=== PATIENT | male | born 1960 ===

== ENCOUNTER 2016-06-13 07:09 | Inpatient (IN) | payer BC ==
--- NOTE | 2016-06-13 07:56 | C.PDOC ---
History Of Present Illness Patient is a 56 y/o male, with no significant PMHx, presents to the ED for evaluation of shortness of breath associated with cough for the past 2-3 days. Patient admits to fever, and chills. Otherwise, denies any chest pain, lower extremity pain/swelling, abdominal pain, nausea, vomiting, urinary symptoms, or any other associated symptoms at this time. Patient presented febrile, tachicardic, tachipnic, visibly short of breath, mild hypoxemia. Time Seen by Provider: 06/13/16 07:27 Chief Complaint (Nursing): Shortness Of Breath History Per: Patient History/Exam Limitations: no limitations Onset/Duration Of Symptoms: Days (3) Current Symptoms Are (Timing): Still Present Exacerbating Factor(s): Coughing Current Respiratory Medications: None Severity: None Pain Scale Rating Of: 0 Associated Symptoms: Fever, Chills. denies: Sweating, Chest Pain, Bloody Cough , Heart Racing, Leg/Calf Pain, Ankle/Leg Swelling, Dizziness, Light-headedness, Anxiety, Tingling In Hands Or Face, Musle Spasms In Hands Or Feet Recent travel outside of the [place]: No Additional History Per: Patient Past Medical History Reviewed: Historical Data, Nursing Documentation, Vital Signs Vital Signs: Last Vital Signs Temp 99.6 F 06/13/16 09:27 Pulse 108 H 06/13/16 09:27 Resp 20 06/13/16 10:00 BP 98/57 L 06/13/16 09:27 Pulse Ox 98 06/13/16 09:55 - Medical History PMH: No Chronic Diseases Surgical History: No Surg Hx Family History: States: No Known Family Hx - Social History Hx Alcohol Use: No Hx Substance Use: No - Immunization History Hx Influenza Vaccination: No Review Of Systems Except As Marked, All Systems Reviewed And Found Negative. Constitutional: Positive for: Fever, Chills. Negative for: Sweats Cardiovascular: Negative for: Chest Pain, Palpitations, Edema, Light Headedness Respiratory: Positive for: Cough, Shortness of Breath. Negative for: Hemoptysis , Sputum, Wheezing Gastrointestinal: Negative for: Nausea, Vomiting, Abdominal Pain Genitourinary: Negative for: Dysuria, Frequency, Hematuria Musculoskeletal: Negative for: Neck Pain, Back Pain Neurological: Negative for: Weakness, Numbness, Headache, Dizziness Physical Exam - Physical Exam Appears: Non-toxic, Other (visibly short of breath) Skin: Normal Color, Warm (febrile), Dry Head: Atraumatic, Normacephalic Eye(s): bilateral: Normal Inspection, EOMI Neck: Normal ROM, Supple Chest: Symmetrical, No Tenderness Cardiovascular: No Murmur, Other (tachycardic) Respiratory: Normal Breath Sounds, No Accessory Muscle Use, No Rales, No Rhonchi , No Wheezing, Other (tachypnic) Gastrointestinal/Abdominal: Soft, No Tenderness Extremity: Normal ROM, No Tenderness, No Pedal Edema, Capillary Refill (< 2 sec. ) Neurological/Psych: Oriented x3, Normal Speech, Normal Cognition ED Course And Treatment - Laboratory Results Result Diagrams: 06/13/16 08:08 06/13/16 08:08 O2 Sat by Pulse Oximetry: 98 (on RA) Pulse Ox Interpretation: Normal - CT Scan/US Angio chest Other Rad Studies (CT/US): Read By Radiologist, Radiology Report Reviewed CT/US Interpretation: Findings: Visualized portions of the inferior thyroid gland appear unremarkable. The mediastinal and hilar vascular structures appear within normal limits. The heart appears within normal limits of size. Sub cm prevascular lymph node. No large central or segmental pulmonary embolus evident. Extensive patchy bilateral ground-glass and airspace opacities involving all lobes. No pleural effusion. No pneumothorax. Innumerable nodular densities bilaterally. For example 6 mm right lower lobe nodule. 4 mm right upper lobe pulmonary nodule. 10 mm left upper lobe nodular density. Limited visualization of the noncontrast upper abdomen reveals peripherally calcified gallbladder. No acute osseous abnormality is detected. Impression: No large central or segmental pulmonary embolus evident. Extensive patchy bilateral ground-glass and airspace opacities involving all lobes. Correlate clinically for infectious etiologies. Innumerable nodular densities bilaterally. For example 6 mm right lower lobe nodule. 4 mm right upper lobe pulmonary nodule. 10 mm left upper lobe nodular density. Recommend close interval follow-up upon completion of treatment for acute symptoms in order to assess for pulmonary nodules or malignancy. Peripherally calcified gallbladder. Progress Note: Plan: Labs, EKG, CXR. Progress note: Patient was treated with Motrin PO, and Tylenol PO. Medical Decision Making Medical Decision Making: Patient with ground glass appearance on chest CT. most likely infectious process , r/o PCP. Spoke with Dr. Fletcher. Will admit to his service. Will add Bactrim to antibiotics, HIV test sent. Patient with no significant risk factors. Disposition Discussed With : Cezar Fletcher Doctor Will See Patient In The: Hospital Counseled Patient/Family Regarding: Studies Performed, Diagnosis - Disposition Disposition: HOSPITALIZED Disposition Time: 09:53 Condition: GUARDED - Clinical Impression Clinical Impression: Dyspnea, Respiratory distress, Interstitial pneumonia - Scribe Statement The provider has reviewed the documentation as recorded by the Mary Beck Provider Attestation: All medical record entries made by the Mary were at my direction and personally dictated by me. I have reviewed the chart and agree that the record accurately reflects my personal performance of the history, physical exam, medical decision making, and the department course for this patient. I have also personally directed, reviewed, and agree with the discharge instructions and disposition. Decision To Admit - Pt Status Changed To: Hospital Disposition Of: Inpatient - Admit Certification Admit to Inpatient:: After my assessment, the patient will require hospitalization for at least two midnights. This is because of the severity of symptoms shown, intensity of services needed, and/or the medical risk in this patient being treated as an outpatient. - InPatient: Physician Admission Certification: I certify that this patient requires 2 or more midnights of care for the following reason:: hypoxic, pneumonia - . Bed Request Type: Telemetry Patient Diagnosis: Dyspnea, Respiratory distress, Interstitial pneumonia
[2016-06-13] MEDS ORDERED: cefTRIAXone IV 1 gm in Dextros 50 ML IVPB ONE ×2 (08:03→08:09)
[2016-06-13] MEDS ORDERED: Azithromycin 500 MG in Sodium Chloride 0.9% 250 ML IVPB STA (08:03)
[2016-06-13] MEDS ORDERED: Azithromycin 500mg/250ML NS 500 MG/250 ML BAG IVPB ONE (08:09)
[2016-06-13 08:16] LABS: BASO % 0.5 % (0.0-2.0); EOS # 0.2 K/uL (0.0-0.7); LYMPH # 1.6 K/uL (1.0-4.3); LYMPH % 18.2 % (20.0-40.0); MEAN CELL VOLUME 85.6 fL (80.0-94.0); MEAN CORPUSCULAR HEMOGLOBIN 28.4 pg (27.0-31.0); MEAN CORPUSCULAR HGB CONC 33.2 g/dL (33.0-37.0); MEAN PLATELET VOLUME 7.3 fL (7.2-11.7); MONO # 0.4 K/uL (0.0-0.8); MONO % 4.9 % (0.0-10.0); NRBC % 0.1 % (0.0-2.0); WHITE BLOOD COUNT 8.8 K/uL (4.8-10.8)
[2016-06-13 08:24] LABS: CHLORIDE 97 mmol/L (98-107); POTASSIUM 4.1 mmol/L (3.6-5.2); SODIUM 131 mmol/L (132-148)
[2016-06-13 08:26] LABS: BILIRUBIN,TOTAL 0.6 mg/dL (0.2-1.3); CARBON DIOXIDE 23 mmol/L (22-30); GFR AFRICAN-AMERICAN > 60
[2016-06-13 08:30] LABS: ALB/GLOB RATIO 0.8 (1.0-2.1); ALKALINE PHOSPHATASE 150 U/L (38-126); ALT/SGPT 32 U/L (21-72); AST/SGOT 80 U/L (17-59); BLOOD UREA NITROGEN 12 mg/dL (9-20); CALCIUM 8.7 mg/dl (8.6-10.4); GLUCOSE,RANDOM 102 mg/dL (75-110); TOTAL PROTEIN 8.2 g/dL (6.3-8.3)
[2016-06-13] MEDS ORDERED: Iodixanol 320 MG/ML 100 ML BOTTLE IV ONE (08:36)
[2016-06-13 09:03] LABS: VENOUS BLOOD GAS BASE EXCESS -1.1 mmol/L (0.0-2.0); VENOUS BLOOD GAS PCO2 38 mmHg (40-60)
--- NOTE | 2016-06-13 09:05 | RAD ---
HISTORY: SOB COMPARISON: None available TECHNIQUE: Chest PA and lateral FINDINGS: LUNGS: Interstitial prominence may reflect infection or edema. Minimal increased patchy opacity at the medial right lung base. Trace fluid or thickening of the right fissure. Please note that chest x-ray has limited sensitivity for the detection of pulmonary masses. PLEURA: No significant pleural effusion identified. No definite pneumothorax . CARDIOVASCULAR: Size appears within normal limits. OSSEOUS STRUCTURES: No acute osseous abnormality identified. VISUALIZED UPPER ABDOMEN: Unremarkable. OTHER FINDINGS: None. IMPRESSION: Moderate interstitial prominence may reflect infection or edema.
--- NOTE | 2016-06-13 09:44 | CT ---
CT chest with IV contrast Indication: severe sob Technique: Contiguous axial images were obtained through the chest with intravenous contrast enhancement. Sagittal and coronal reconstructions were generated and reviewed. This CT exam was performed using 1 or more of the falling dose reduction techniques: Automated exposure control, adjustment of the MAA and/or kV according to patient size, and/or use of iterative reconstruction technique. IV Contrast: 80 mL Visipaque 320 Radiation dose (DLP): 469.24 MGy-cm. Comparison: Chest x-ray performed the same day. Findings: Visualized portions of the inferior thyroid gland appear unremarkable. The mediastinal and hilar vascular structures appear within normal limits. The heart appears within normal limits of size. Sub cm prevascular lymph node. No large central or segmental pulmonary embolus evident. Extensive patchy bilateral ground-glass and airspace opacities involving all lobes. No pleural effusion. No pneumothorax. Innumerable nodular densities bilaterally. For example 6 mm right lower lobe nodule. 4 mm right upper lobe pulmonary nodule. 10 mm left upper lobe nodular density. Limited visualization of the noncontrast upper abdomen reveals peripherally calcified gallbladder. No acute osseous abnormality is detected. Impression: No large central or segmental pulmonary embolus evident. Extensive patchy bilateral ground-glass and airspace opacities involving all lobes. Correlate clinically for infectious etiologies. Innumerable nodular densities bilaterally. For example 6 mm right lower lobe nodule. 4 mm right upper lobe pulmonary nodule. 10 mm left upper lobe nodular density. Recommend close interval follow-up upon completion of treatment for acute symptoms in order to assess for pulmonary nodules or malignancy. Peripherally calcified gallbladder.
[2016-06-13] MEDS ORDERED: Tmp-Smz 800 mg-160 mg DS Tab PO SCH (11:15)
[2016-06-13] MEDS ORDERED: Sulfamethoxazole/Trimethoprim 160 MG in Dextrose 5% In Water 250 ML IVPB STA (11:34)
[2016-06-13] MEDS ORDERED: Albuterol-Ipratrop 3 mg / 0.5 (3 ml) UD ONE (14:18)
[2016-06-13] MEDS: Albuterol-Ipratrop 3 mg / 0.5 (3 ml) UD INH SCH ×2 (14:36→22:07)
[2016-06-13] MEDS: Sodium Chloride 0.9% 1,000 ML IV SCH ×2 (16:11→21:38)
[2016-06-13] MEDS: Sulfamethoxazole/Trimethoprim 160 MG in Dextrose 5% In Water 250 ML IVPB SCH (23:05)
--- NOTE | 2016-06-13 23:44 | CP.PCM.HP ---
History of Present Illness - History of Present Illness History of Present Illness: Cheif complains: shortness of breath, dry cough, fever, malaise HPI: Patient who is a 56 y/o male, with no significant PMHx, is a poor historian presents to the ED for evaluation of shortness of breath associated with cough for the past 2-3 days. he says he has trouble breathing deep and have pain on deep inspiration, Patient admits to fever, and chills. Otherwise, denies any chest pain, lower extremity pain/swelling, abdominal pain, nausea, vomiting, urinary symptoms, or any other associated symptoms at this time. denies exposure to TB, sebastian any risk factors of HIV Patient presented febrile, tachicardic, tachipnic, visibly short of breath, mild hypoxemia. Present on Admission - Present on Admission Any Indicators Present on Admission: No Review of Systems - Review of Systems Systems not reviewed;Unavailable: Acuity of Condition - Constitutional Constitutional: Fatigue, Fever, Lethargy, Malaise. absent: As Per HPI, Anorexia , Chills, Daytime Sleepiness, Excessive Sweating, Frequent Falls, Headache, Increased Appetite, Night Sweats, Snoring, Sleep Apnea, Weight Gain, Weight Loss , Weakness, Other - EENT Eyes: absent: As Per HPI, Blind Spots, Blurred Vision, Change in Vision, Decreased Night Vision, Diplopia, Discharge, Dry Eye, Exophthalmos, Floaters, Irritation, Itchy Eyes, Loss of Peripheral Vision, Pain, Photophobia, Requires Corrective Lenses, Sees Flashes, Spots in Vision, Tunnel Vision, Other Visual Disturbances, Loss of Vision, Other Past Patient History - Infectious Disease Hx of Infectious Diseases: None - Past Social History Smoking Status: Never Smoked - PSYCHIATRIC Hx Substance Use: No - SURGICAL HISTORY Hx Surgeries: No - ANESTHESIA Hx Anesthesia: No Meds Home Medications: Home Medication List Medication Instructions Recorded Confirmed Type Azithromycin [Zithromax] 600 mg PO QD7 #8 tab 06/21/16 Rx Nystatin [Nystatin Oral Susp] 5 ml PO QID #100 06/21/16 Rx Allergies/Adverse Reactions: Allergies Allergy/AdvReac Type Severity Reaction Status Date / Time No Known Allergies Allergy Verified 07/07/16 10:15 Physical Exam - Constitutional Appears: No Acute Distress Additional comments: middle aged male who looks under weight - Head Exam Head Exam: ATRAUMATIC, NORMAL INSPECTION, NORMOCEPHALIC - Eye Exam Eye Exam: EOMI, Normal appearance, PERRL Pupil Exam: NORMAL ACCOMODATION, PERRL - Respiratory Exam Respiratory Exam: Decreased Breath Sounds, Rales Additional comments: basal rales - Cardiovascular Exam Cardiovascular Exam: REGULAR RHYTHM - GI/Abdominal Exam GI & Abdominal Exam: Normal Bowel Sounds, Soft. absent: Tenderness Results - Vital Signs Recent Vital Signs: Last Vital Signs Temp 98.5 F 06/13/16 22:26 Pulse 105 H 06/13/16 22:26 Resp 22 06/13/16 22:26 BP 132/78 06/13/16 22:26 Pulse Ox 93 L 06/13/16 22:26 - Labs Result Diagrams: 06/18/16 13:42 06/18/16 13:42 Labs: Laboratory Results - last 24 hr 06/13/16 10:34 Lactate Dehydrogenase 1563 H Assessment & Plan (1) Dyspnea Status: Acute (2) Interstitial pneumonia Assessment and Plan: further evaluation for etiology of pnemonia broad spectrum antibiotoics now we will also get pulmonary consult Status: Acute (3) Respiratory distress Status: Acute
[2016-06-14] MEDS: Albuterol-Ipratrop 3 mg / 0.5 (3 ml) UD INH SCH ×4 (01:39→19:47)
[2016-06-14] MEDS ORDERED: Pneumococcal 23-Valent Vaccine IM ONE (03:15)
[2016-06-14] MEDS ORDERED: cefTRIAXone IV 1 gm in Dextros 50 ML IVPB SCH (08:30)
[2016-06-14] MEDS: Enoxaparin 40 mg Syringe SC SCH (09:51)
[2016-06-14] MEDS ORDERED: Azithromycin 500 MG in Sodium Chloride 0.9% 250 ML IVPB SCH (10:00)
[2016-06-14] MEDS: Sulfamethoxazole/Trimethoprim 160 MG in Dextrose 5% In Water 250 ML IVPB SCH (12:30)
[2016-06-14] MEDS: Sodium Chloride 0.9% 1,000 ML IV SCH ×3 (12:33→21:41)
[2016-06-14] MEDS: MethylPREDNISolone 40 mg Vial IVP SCH ×2 (13:59→21:43)
--- NOTE | 2016-06-14 17:18 | CP.PCM.CON ---
History of Present Illness - History of Present Illness History of Present Illness: INFECTIOUS DISEASE CONSULTATION; PATIENT SEEN AND CHART REVIEWED RADIOLOGY REVIEWED. CASE DISCUSSED WITH PULMONARY CONSULT DICTATED; DICTATION #[id number]. SEE REPORTS. Past Patient History - Infectious Disease Hx of Infectious Diseases: None - Past Medical History & Family History Past Medical History?: Yes - Past Social History Smoking Status: Never Smoked - MUSCULOSKELETAL/RHEUMATOLOGICAL Hx Falls: No Other/Comment: restless leg syndrome - PSYCHIATRIC Hx Substance Use: No - SURGICAL HISTORY Hx Surgeries: No - ANESTHESIA Hx Anesthesia: No Meds Allergies/Adverse Reactions: Allergies Allergy/AdvReac Type Severity Reaction Status Date / Time No Known Allergies Allergy Verified 06/13/16 07:39 - Medications Medications: Current Medications Albuterol/Ipratropium (Duoneb 3 Mg/0.5 Mg (3 Ml) Ud) 3 ml INH RQ6 [facility] Last Admin: 06/14/16 13:24 Dose: 3 ml Enoxaparin Sodium (Lovenox) 40 mg SC DAILY [facility] Last Admin: 06/14/16 09:51 Dose: 40 mg Ceftriaxone Sodium (Rocephin Iv 1 Gm Duplex) 50 mls @ 100 mls/hr IVPB Q24H [facility] Last Admin: 06/14/16 09:52 Dose: 100 mls/hr Azithromycin 500 mg/ Sodium (Chloride) 250 mls @ 166.667 mls/hr IVPB DAILY [facility] Last Admin: 06/14/16 09:55 Dose: 166.667 mls/hr Sodium Chloride (Sodium Chloride 0.9%) 1,000 mls @ 100 mls/hr IV .Q10H [facility] Last Admin: 06/14/16 12:37 Dose: 100 mls/hr Trimethoprim/Sulfamethoxazole (160 mg/ Dextrose) 250 mls @ 166.667 mls/hr IVPB Q12H [facility] Last Admin: 06/14/16 12:30 Dose: 166.667 mls/hr Methylprednisolone (Solu-Medrol) 40 mg IVP Q8 [facility] Last Admin: 06/14/16 13:59 Dose: 40 mg Pneumococcal Polyvalent Vaccine (Pneumovax 23 Vaccine) 0.5 ml IM .ONCE ONE Stop: 06/17/16 10:01 Results - Vital Signs Recent Vital Signs: Last Vital Signs Temp 98.3 F 06/14/16 15:43 Pulse 102 H 06/14/16 15:43 Resp 22 06/14/16 16:19 BP 119/65 06/14/16 15:43 Pulse Ox 95 06/14/16 15:43 - Labs Result Diagrams: 06/13/16 08:08 06/13/16 08:08 Labs: Laboratory Results - last 24 hr 06/13/16 10:34 HIV 1&2 Antibody Screen Reactive H Assessment & Plan (1) Dyspnea Status: Acute (2) Interstitial pneumonia Status: Acute (3) Respiratory distress Status: Acute (4) HIV antibody positive Status: Acute (5) Oral candidiasis Status: Acute - Assessment and Plan (Free Text) Assessment: PLAN; SEE ORDER SHEET. INCREASE iv bACTRIM 240 MG iv PIGGYBACK EVERY 12 HOURLY 06/13/16. START iv pRIMAXIN 500MILLIGRAMS iv PIGGYBACK EVERY 8 HOURLY 06/14/16.. dc iv CEFTRIAXONE IN VIEW OF HEPATIC METABOLISM AND ELEVATED lftS. dc iv zITHROMAX. START iv BY MOUTH NYSTATIN 5 Ml SWISH AND SWALLOW 4 TIMES A DAY.06/14/16 WILL GET CONFIRMATORY TEST FOR hiv 1 ANTIBODY POSITIVE. LYMPHOCYTE SUBSET STUDIES. WILL INITIATE HAART THERAPY IF FOURTH-GENERATION HIV TEST COMES BACK POSITIVE WE'LL FOLLOW ALONG WITH YOU AND MAKE ANY RECOMMENDATIONS NEEDED.
--- NOTE | 2016-06-14 17:53 | CP.PCM.CON ---
History of Present Illness - History of Present Illness History of Present Illness: reason for consultation: shortness of breath and cough with severe hypoxemia 56 y/o male, with no significant PMHx, is a poor historian presents to the ED for evaluation of shortness of breath associated with cough for the past 2-3 days. he says he has trouble breathing deep and have pain on deep inspiration, Patient admits to fever, and chills. Otherwise, denies any chest pain, lower extremity pain/swelling, abdominal pain, nausea, vomiting, urinary symptoms, or any other associated symptoms at this time. denies exposure to TB, sebastian any risk factors of HIV Review of Systems - Review of Systems All systems: reviewed and no additional remarkable complaints except (Shortness of breath and cough) Past Patient History - Infectious Disease Hx of Infectious Diseases: None - Past Medical History & Family History Past Medical History?: Yes - Past Social History Smoking Status: Never Smoked - MUSCULOSKELETAL/RHEUMATOLOGICAL Hx Falls: No Other/Comment: restless leg syndrome - PSYCHIATRIC Hx Substance Use: No - SURGICAL HISTORY Hx Surgeries: No - ANESTHESIA Hx Anesthesia: No Meds Home Medications: Home Medication List Medication Instructions Recorded Confirmed Type Azithromycin [Zithromax] 600 mg PO QD7 #8 tab 06/21/16 Rx Nystatin [Nystatin Oral Susp] 5 ml PO QID #100 06/21/16 Rx Allergies/Adverse Reactions: Allergies Allergy/AdvReac Type Severity Reaction Status Date / Time No Known Allergies Allergy Verified 07/07/16 10:15 - Medications Medications: Current Medications Albuterol/Ipratropium (Duoneb 3 Mg/0.5 Mg (3 Ml) Ud) 3 ml INH RQ6 [facility] Last Admin: 06/14/16 13:24 Dose: 3 ml Enoxaparin Sodium (Lovenox) 40 mg SC DAILY [facility] Last Admin: 06/14/16 09:51 Dose: 40 mg Ceftriaxone Sodium (Rocephin Iv 1 Gm Duplex) 50 mls @ 100 mls/hr IVPB Q24H [facility] Last Admin: 06/14/16 09:52 Dose: 100 mls/hr Azithromycin 500 mg/ Sodium (Chloride) 250 mls @ 166.667 mls/hr IVPB DAILY [facility] Last Admin: 06/14/16 09:55 Dose: 166.667 mls/hr Sodium Chloride (Sodium Chloride 0.9%) 1,000 mls @ 100 mls/hr IV .Q10H [facility] Last Admin: 06/14/16 12:37 Dose: 100 mls/hr Trimethoprim/Sulfamethoxazole (160 mg/ Dextrose) 250 mls @ 166.667 mls/hr IVPB Q12H [facility] Last Admin: 06/14/16 12:30 Dose: 166.667 mls/hr Trimethoprim/Sulfamethoxazole (240 mg/ Dextrose) 250 mls @ 167 mls/hr IVPB Q12H [facility] Methylprednisolone (Solu-Medrol) 40 mg IVP Q8 [facility] Last Admin: 06/14/16 13:59 Dose: 40 mg Nystatin (Nystatin Oral Susp) 5 ml PO QID [facility] Pneumococcal Polyvalent Vaccine (Pneumovax 23 Vaccine) 0.5 ml IM .ONCE ONE Stop: 06/17/16 10:01 Physical Exam - Head Exam Head Exam: ATRAUMATIC, NORMOCEPHALIC - Eye Exam Eye Exam: Normal appearance - ENT Exam ENT Exam: Mucous Membranes Moist - Neck Exam Neck exam: Positive for: Normal Inspection - Respiratory Exam Respiratory Exam: Rales, Respiratory Distress - Cardiovascular Exam Cardiovascular Exam: Tachycardia, REGULAR RHYTHM - GI/Abdominal Exam GI & Abdominal Exam: Normal Bowel Sounds, Soft Results - Vital Signs Recent Vital Signs: Last Vital Signs Temp 98.3 F 06/14/16 15:43 Pulse 102 H 06/14/16 15:43 Resp 22 06/14/16 16:19 BP 119/65 06/14/16 15:43 Pulse Ox 95 06/14/16 15:43 - Labs Result Diagrams: 06/18/16 13:42 06/18/16 13:42 Labs: Laboratory Results - last 24 hr 06/13/16 10:34 HIV 1&2 Antibody Screen Reactive H Assessment & Plan (1) Bilateral pneumonia Status: Acute Comment: started on IV antibiotics. HIV testing. Echocardiogram. Follow up culture and sensitivity. Follow-up ABG (2) Respiratory distress Status: Acute
[2016-06-14] MEDS: Nystatin 100,000 Units/ml Oral Susp 5 ml UD PO SCH ×2 (19:28→21:43)
--- NOTE | 2016-06-14 19:50 | CON ---
DATE: 06/14/2016 INFECTIOUS DISEASE CONSULTATION REQUESTING PHYSICIAN: Dr. Cezar Fletcher. REASON FOR CONSULTATION: Hypoxia, pneumonia and respiratory distress. HISTORY OF PRESENT ILLNESS: The patient is a 56-year-old elderly male with no significant past medic al history who is admitted from the Emergency Room because of shortness of breath associated with a d ry cough for the past 2-3 days. The patient states he has been having trouble breathing deep and get s pain on deep inspiration. The patient also admits to fever and chills off and on for the past 2 da ys. The patient presently denies any palpitations, nausea, vomiting or urinary symptoms. He denies any lower extremity pain or chest pain otherwise, except on deep inspiration. The patient denies any headache. Chest x-ray on admission was consistent with moderate interstitial prominence, which may reflect infection or edema. A CT angio chest was ordered to rule out pulmonary embolism, which came back positive for extensive patchy bilateral ground-glass airspace opacities involving all lobes. In numerable nodular densities were also seen bilaterally of 4 mm in the right upper lobe and about 10 m m in the left upper lobe. The patient was also found to be hypoxemic with a pulse ox of 93% on room air and also LDH was found to be elevated to 1563. The patient was empirically started on IV Bactrim as well as IV ceftriaxone and Zithromax by the private MD and ER in-physician. Infectious: HIV petar t was also sent, which reported came back positive on initial testing. The patient denies any risky behavior or any promiscuous activity. He denies any previous history of blood transfusions except fo r tattoo quiroz on his chest and back reported placed about 12 years ago. The patient denies any expo sure to TB. He states he is and lives with his family. PAST MEDICAL HISTORY: Unremarkable except for the present problem as per HPI. He denies any previou s history of pneumonia, TB or any sexually transmitted disease. ALLERGIES: No known allergies. SOCIAL HISTORY: The patient denies any smoking, denies any history of alcohol abuse or any history o f substance abuse. FAMILY HISTORY: Unremarkable. PAST SURGICAL HISTORY: No known surgical history. IMMUNIZATION HISTORY: The patient is not up to date on influenza vaccination or any pneumococcal vac cination. He denies seeing any doctor for some time. ALLERGIES: No known allergies. REVIEW OF SYSTEMS: RESPIRATORY: Complains of shortness of breath even on rest. CARDIOVASCULAR SYSTEM: Denies any chest pains, palpitations, edema or lightheadedness. CONSTITUTIONAL: Complains of fever and chills. Negative for night sweats. GASTROINTESTINAL: Denies any nausea, vomiting or abdominal pain. GENITOURINARY: Unremarkable. No dysuria, no frequency, no hematuria. MUSCULOSKELETAL: Denies any neck pains or back pains. CENTRAL NERVOUS SYSTEM: Denies any weakness, numbness, headache, dizziness. The rest of the review of systems is unremarkable. PHYSICAL EXAMINATION: GENERAL: The patient is 5 feet 5 inches tall, gentleman, about 150 pounds. VITAL SIGNS: T-max of 99.6, blood pressure 98/57 to 131/78, respirations 25-22 per minute, pulse ox is 93%. HEENT: Pupils equal, reactive to light and accommodation. Extraocular movements full. Fundus negat kole. Sclerae are nonicteric. Conjunctivae are normal. JVP not elevated. NECK: Appears to be supple. No lymphadenopathy appreciated. LUNGS: Bilateral rhonchi, no expiratory wheeze and tachypneic. CARDIOVASCULAR SYSTEM: Sinus tachycardia. No murmur or gallop. ABDOMEN: Soft, nontender, no masses. EXTREMITIES: Normal range of motion. No tenderness. No pedal edema. Capillary refill less than 2 seconds. CENTRAL NERVOUS SYSTEM: Awake, alert, oriented x 3. Moves all extremities. Reflexes are equal and symmetrical. Cranial nerves II-XII seem to be intact. Babinski are downgoing. Normal speech. LABORATORY DATA: WBC 8.8, H and H of 14.0 and 42, platelets of 326. Creatinine of 0.8, BUN 12, pota ssium is 4.1. Liver function tests: Total bilirubin of 0.6, AST of 80, ALT of 32, alkaline phosphat ase 150. LDH 1563. Serum lactate on admission was 2.1. D-dimer was less than 200. HIV 1 and [address] reporting reactive. CT chest angio on 06/13/16 noted extensive patchy bilateral ground-glass ai rspace opacities involving all lobes with innumerable nodular densities bilaterally about 4 mm right upper lobe and 10 mm left upper lobe. IMPRESSION: 1. Bilateral pneumonia with hypoxemia and increased interstitial markings and nodular densities, rul e out PCP versus atypical pneumonia. 2. Oral candidiasis. 3. Transaminitis, rule out liver disease versus congestion of liver. 4. Human immunodeficiency virus positive initial testing, rule out false positive, will confirm. PLAN: 1. [place] cultures. We will increase IV Bactrim to 240 mg q. 12 hourly. Discontinue IV ceftriaxone in view of the liver metabolism and elevated transaminitis. Discontinue IV Zithromax for now. Start I V Primaxin 500 mg q. 8 hourly. We will also get sed rate, CRP, cryptococcal antigen. 2. VDRL. 3. Lymphocyte subset studies. 4. Throat culture sensitivity for fungus and Strep. 5. Toxoplasmosis IgM and IgG serology. 6. We will also send for HIV 1 RNA PCR quantitative levels and genotyping and lymphocyte subsets teto dies. 7. Also, will check HLA-B 5701 for abacavir hypersensitivity. 8. Will initiate HAART therapy if tests are positive. Thank you very much for allowing me to participate in the care of your patient. Will follow along wi th you and make any recommendations as needed. Brandyn Jiang MD cc: [id number] TT: 06/14/2016 19:49:21 Confirmation # [id number] Dictation # [id number] [email or web address]
--- NOTE | 2016-06-14 22:26 | CP.PCM.PN ---
Subjective - Date & Time of Evaluation Date of Evaluation: 06/14/16 Time of Evaluation: 09:38 - Subjective Subjective: Pt seen & evalauted is HIV positive, still hypooxic, short of breath, rule out PCP pneumonia,continue bactrim, Id follow up, pulmonary consult Objective - Vital Signs/Intake and Output Vital Signs (last 24 hours): Temp Pulse Resp BP Pulse Ox 98.3 F 102 H 22 119/65 95 06/14/16 15:43 06/14/16 15:43 06/14/16 19:48 06/14/16 15:43 06/14/16 15:43 - Medications Medications: Current Medications Albuterol/Ipratropium (Duoneb 3 Mg/0.5 Mg (3 Ml) Ud) 3 ml INH RQ6 [facility] Last Admin: 06/14/16 19:47 Dose: 3 ml Enoxaparin Sodium (Lovenox) 40 mg SC DAILY [facility] Last Admin: 06/14/16 09:51 Dose: 40 mg Sodium Chloride (Sodium Chloride 0.9%) 1,000 mls @ 100 mls/hr IV .Q10H [facility] Last Admin: 06/14/16 21:41 Dose: Not Given Trimethoprim/Sulfamethoxazole (240 mg/ Dextrose) 250 mls @ 167 mls/hr IVPB Q12H [facility] Imipenem/Cilastatin Sodium 500 (mg/ Sodium Chloride) 100 mls @ 100 mls/hr IVPB Q8H [facility] Last Admin: 06/14/16 19:29 Dose: 100 mls/hr Methylprednisolone (Solu-Medrol) 40 mg IVP Q8 [facility] Last Admin: 06/14/16 21:43 Dose: 40 mg Nystatin (Nystatin Oral Susp) 5 ml PO QID [facility] Last Admin: 06/14/16 21:43 Dose: 5 ml Pneumococcal Polyvalent Vaccine (Pneumovax 23 Vaccine) 0.5 ml IM .ONCE ONE Stop: 06/17/16 10:01 - Constitutional Appears: No Acute Distress, Chronically Ill - Head Exam Head Exam: ATRAUMATIC, NORMAL INSPECTION, NORMOCEPHALIC - Eye Exam Eye Exam: EOMI, Normal appearance, PERRL Pupil Exam: NORMAL ACCOMODATION, PERRL - Respiratory Exam Respiratory Exam: Decreased Breath Sounds, Rales, Rhonchi - Cardiovascular Exam Cardiovascular Exam: REGULAR RHYTHM, +S1, +S2. absent: Murmur Assessment and Plan (1) Dyspnea Status: Acute (2) Interstitial pneumonia Status: Acute (3) Respiratory distress Status: Acute (4) HIV antibody positive Status: Acute
[2016-06-15] MEDS: Sulfamethoxazole/Trimethoprim 240 MG in Dextrose 5% In Water 250 ML IVPB SCH ×2 (00:45→13:30)
[2016-06-15] MEDS: Albuterol-Ipratrop 3 mg / 0.5 (3 ml) UD INH SCH ×4 (01:09→19:59)
[2016-06-15] MEDS: MethylPREDNISolone 40 mg Vial IVP SCH ×3 (06:27→22:09)
[2016-06-15 10:16] LABS: CHLORIDE 104 mmol/L (98-107); POTASSIUM 4.1 mmol/L (3.6-5.2); SODIUM 134 mmol/L (132-148)
[2016-06-15 10:16] LABS: BASO % 0.2 % (0.0-2.0); HEMATOCRIT 37.5 % (35.0-51.0); LYMPH # 0.6 K/uL (1.0-4.3); LYMPH % 10.7 % (20.0-40.0); MEAN CELL VOLUME 85.6 fL (80.0-94.0); MEAN CORPUSCULAR HEMOGLOBIN 28.8 pg (27.0-31.0); MEAN CORPUSCULAR HGB CONC 33.6 g/dL (33.0-37.0); MEAN PLATELET VOLUME 7.5 fL (7.2-11.7); MONO # 0.2 K/uL (0.0-0.8); MONO % 3.2 % (0.0-10.0); NRBC % 0.2 % (0.0-2.0); RED CELL DISTRIBUTION WIDTH 14.6 % (11.5-14.5); WHITE BLOOD COUNT 5.9 K/uL (4.8-10.8)
[2016-06-15] MEDS: Enoxaparin 40 mg Syringe SC SCH (10:16)
[2016-06-15] MEDS: Nystatin 100,000 Units/ml Oral Susp 5 ml UD PO SCH ×4 (10:17→22:09)
[2016-06-15 10:19] LABS: BLOOD UREA NITROGEN 13 mg/dL (9-20); CARBON DIOXIDE 15 mmol/L (22-30); GFR AFRICAN-AMERICAN > 60
[2016-06-15 10:20] LABS: CALCIUM 8.6 mg/dl (8.6-10.4); GLUCOSE,RANDOM 126 mg/dL (75-110)
[2016-06-15] MEDS: Sodium Chloride 0.9% 1,000 ML IV SCH ×2 (13:32→22:16)
[2016-06-15 13:39] LABS: CRYPTOCOCCUS ANTIGEN SERUM NEGATIVE (NEGATIVE)
--- NOTE | 2016-06-15 14:05 | CARD ---
APPROVED REPORT EKG Measurement Heart [id number] <Conclusion> Sinus tachycardia Otherwise normal ECG
--- NOTE | 2016-06-15 16:54 | CP.PCM.PN ---
Subjective - Date & Time of Evaluation Date of Evaluation: 06/15/16 Time of Evaluation: 14:45 - Subjective Subjective: Patient seen and examined. Patient states breathing has much improved comfortable in no distress Objective - Vital Signs/Intake and Output Vital Signs (last 24 hours): Temp Pulse Resp BP Pulse Ox 97.9 F 98 H 20 132/73 93 L 06/15/16 16:31 06/15/16 16:31 06/15/16 16:31 06/15/16 16:31 06/15/16 16:31 Intake and Output: 06/15/16 06/15/16 06:59 18:59 Intake Total 800 720 Balance 800 720 - Medications Medications: Current Medications Albuterol/Ipratropium (Duoneb 3 Mg/0.5 Mg (3 Ml) Ud) 3 ml INH RQ6 [facility] Last Admin: 06/15/16 13:26 Dose: 3 ml Enoxaparin Sodium (Lovenox) 40 mg SC DAILY [facility] Last Admin: 06/15/16 10:16 Dose: 40 mg Sodium Chloride (Sodium Chloride 0.9%) 1,000 mls @ 100 mls/hr IV .Q10H [facility] Last Admin: 06/15/16 13:32 Dose: Not Given Trimethoprim/Sulfamethoxazole (240 mg/ Dextrose) 250 mls @ 167 mls/hr IVPB Q12H [facility] Last Admin: 06/15/16 13:30 Dose: 167 mls/hr Imipenem/Cilastatin Sodium 500 (mg/ Sodium Chloride) 100 mls @ 100 mls/hr IVPB Q8H [facility] Last Admin: 06/15/16 10:23 Dose: 100 mls/hr Methylprednisolone (Solu-Medrol) 40 mg IVP Q8 [facility] Last Admin: 06/15/16 14:17 Dose: 40 mg Nystatin (Nystatin Oral Susp) 5 ml PO QID [facility] Last Admin: 06/15/16 13:35 Dose: 5 ml Pneumococcal Polyvalent Vaccine (Pneumovax 23 Vaccine) 0.5 ml IM .ONCE ONE Stop: 06/17/16 10:01 - Labs Labs: 06/15/16 07:30 06/15/16 10:06 - Head Exam Head Exam: ATRAUMATIC, NORMOCEPHALIC - Eye Exam Eye Exam: Normal appearance - ENT Exam ENT Exam: Mucous Membranes Moist - Neck Exam Neck Exam: Normal Inspection - Respiratory Exam Respiratory Exam: Rales - Cardiovascular Exam Cardiovascular Exam: REGULAR RHYTHM - GI/Abdominal Exam GI & Abdominal Exam: Soft, Normal Bowel Sounds Assessment and Plan (1) Dyspnea Assessment & Plan: Most likely PCP pneumonia Continue antibiotics and steroids Follow-up chest x-ray Status: Acute (2) HIV antibody positive Status: Acute
[2016-06-15 17:45] LABS: RAPID PLASMA REAGIN NONREACTIVE (NONREACTIVE)
--- NOTE | 2016-06-15 22:03 | CP.PCM.PN ---
Subjective - Date & Time of Evaluation Date of Evaluation: 06/15/16 Time of Evaluation: 22:03 - Subjective Subjective: AFEBRILE FEELS BETTER THAN YESTERDAY LESS SHORT OF BREATH. DENIES DYSPHAGIA OR ODYNOPHAGIA PATIENT NOTIFIED OF HIS DIAGNOSIS OF HIV -1 ANTIBODY POSITIVE EXPLAINED WILL FOLLOW CONFIRMATORY TEST BEFORE INITIATING ANY TREATMENT. Objective - Vital Signs/Intake and Output Vital Signs (last 24 hours): Temp Pulse Resp BP Pulse Ox 97.9 F 98 H 20 132/73 93 L 06/15/16 16:31 06/15/16 16:31 06/15/16 16:31 06/15/16 16:31 06/15/16 16:31 Intake and Output: 06/15/16 06/16/16 18:59 06:59 Intake Total 720 Balance 720 - Medications Medications: Current Medications Albuterol/Ipratropium (Duoneb 3 Mg/0.5 Mg (3 Ml) Ud) 3 ml INH RQ6 [facility] Last Admin: 06/15/16 19:59 Dose: 3 ml Enoxaparin Sodium (Lovenox) 40 mg SC DAILY [facility] Last Admin: 06/15/16 10:16 Dose: 40 mg Sodium Chloride (Sodium Chloride 0.9%) 1,000 mls @ 100 mls/hr IV .Q10H [facility] Last Admin: 06/15/16 13:32 Dose: Not Given Trimethoprim/Sulfamethoxazole (240 mg/ Dextrose) 250 mls @ 167 mls/hr IVPB Q12H [facility] Last Admin: 06/15/16 13:30 Dose: 167 mls/hr Imipenem/Cilastatin Sodium 500 (mg/ Sodium Chloride) 100 mls @ 100 mls/hr IVPB Q8H [facility] Last Admin: 06/15/16 18:35 Dose: 100 mls/hr Methylprednisolone (Solu-Medrol) 40 mg IVP Q8 [facility] Last Admin: 06/15/16 14:17 Dose: 40 mg Nystatin (Nystatin Oral Susp) 5 ml PO QID [facility] Last Admin: 06/15/16 18:35 Dose: 5 ml Pneumococcal Polyvalent Vaccine (Pneumovax 23 Vaccine) 0.5 ml IM .ONCE ONE Stop: 06/17/16 10:01 - Labs Labs: 06/15/16 07:30 06/15/16 10:06 - Constitutional Appears: No Acute Distress - Head Exam Head Exam: NORMAL INSPECTION - Eye Exam Eye Exam: EOMI, PERRL - ENT Exam ENT Exam: Mucous Membranes Dry (ORAL CANDIDIASIS.) - Neck Exam Neck Exam: Normal Inspection - Respiratory Exam Respiratory Exam: Rhonchi (BILATERAL RHONCHI.) - Cardiovascular Exam Cardiovascular Exam: REGULAR RHYTHM, +S1, +S2 - GI/Abdominal Exam GI & Abdominal Exam: Soft, Normal Bowel Sounds. absent: Organomegaly - Extremities Exam Extremities Exam: Full ROM, Normal Capillary Refill. absent: Calf Tenderness, Pedal Edema, Tenderness - Neurological Exam Neurological Exam: Alert, Awake, CN II-XII Intact, Normal Gait, Oriented x3, Reflexes Normal - Psychiatric Exam Psychiatric exam: Normal Mood - Skin Skin Exam: Normal Color, Warm Assessment and Plan (1) Dyspnea Status: Acute (2) Interstitial pneumonia Status: Acute (3) Respiratory distress Status: Acute (4) HIV antibody positive Status: Acute (5) Oral candidiasis Status: Acute - Assessment and Plan (Free Text) Plan: CONTINUE iv bACTRIM 240 MG iv PIGGYBACK EVERY 12 HOURLY 06/13/16. CONTINUE iv pRIMAXIN 500MILLIGRAMS iv PIGGYBACK EVERY 8 HOURLY 06/14/16.. START iv BY MOUTH NYSTATIN 5 Ml SWISH AND SWALLOW 4 TIMES A DAY.06/14/16 FOLLOW-UP SPUTUM CULTURES. CONFIRMATORY TEST FOR hiv 1 ANTIBODY FOURTH-GENERATION TEST PENDING LYMPHOCYTE SUBSET STUDIES.-PENDING. WILL INITIATE HAART THERAPY IF FOURTH-GENERATION HIV TEST COMES BACK POSITIVE
[2016-06-16] MEDS: Sulfamethoxazole/Trimethoprim 240 MG in Dextrose 5% In Water 250 ML IVPB SCH ×2 (00:18→13:30)
[2016-06-16] MEDS: Albuterol-Ipratrop 3 mg / 0.5 (3 ml) UD INH SCH ×4 (02:00→19:45)
[2016-06-16] MEDS: MethylPREDNISolone 40 mg Vial IVP SCH ×3 (06:18→22:00)
[2016-06-16] MEDS: Nystatin 100,000 Units/ml Oral Susp 5 ml UD PO SCH ×4 (09:28→21:59)
[2016-06-16] MEDS: Enoxaparin 40 mg Syringe SC SCH (09:28)
[2016-06-16 11:30] LABS: TOXOPLASMA IGG AB 2.72 (<0.91)
[2016-06-16] MEDS: Sodium Chloride 0.9% 1,000 ML IV SCH ×2 (13:59)
--- NOTE | 2016-06-16 15:16 | CP.PCM.PN ---
Subjective - Date & Time of Evaluation Date of Evaluation: 06/16/16 Time of Evaluation: 13:15 - Subjective Subjective: Patient seen and examined. Still having cough which is mostly dry but the breathing has much improved Denies fever or chills, denies chest pain Objective - Vital Signs/Intake and Output Vital Signs (last 24 hours): Temp Pulse Resp BP Pulse Ox 97.6 F 72 20 112/66 91 L 06/16/16 07:12 06/16/16 08:15 06/16/16 13:35 06/16/16 07:12 06/16/16 07:12 Intake and Output: 06/16/16 06/16/16 06:59 18:59 Intake Total 2390 Output Total 1100 Balance 1290 - Medications Medications: Current Medications Albuterol/Ipratropium (Duoneb 3 Mg/0.5 Mg (3 Ml) Ud) 3 ml INH RQ6 [facility] Last Admin: 06/16/16 13:32 Dose: 3 ml Enoxaparin Sodium (Lovenox) 40 mg SC DAILY [facility] Last Admin: 06/16/16 09:28 Dose: 40 mg Folic Acid (Folic Acid) 1 mg PO DAILY [facility] Last Admin: 06/16/16 09:29 Dose: 1 mg Trimethoprim/Sulfamethoxazole (240 mg/ Dextrose) 250 mls @ 167 mls/hr IVPB Q12H [facility] Last Admin: 06/16/16 13:30 Dose: 167 mls/hr Imipenem/Cilastatin Sodium 500 (mg/ Sodium Chloride) 100 mls @ 100 mls/hr IVPB Q8H [facility] Last Admin: 06/16/16 11:00 Dose: 100 mls/hr Methylprednisolone (Solu-Medrol) 40 mg IVP Q8 [facility] Last Admin: 06/16/16 13:58 Dose: 40 mg Nystatin (Nystatin Oral Susp) 5 ml PO QID [facility] Last Admin: 06/16/16 13:59 Dose: 5 ml Pneumococcal Polyvalent Vaccine (Pneumovax 23 Vaccine) 0.5 ml IM .ONCE ONE Stop: 06/17/16 10:01 - Labs Labs: 06/15/16 07:30 06/15/16 10:06 - Head Exam Head Exam: ATRAUMATIC, NORMOCEPHALIC - Eye Exam Eye Exam: Normal appearance - ENT Exam ENT Exam: Mucous Membranes Moist - Neck Exam Neck Exam: Normal Inspection - Respiratory Exam Respiratory Exam: Rales - Cardiovascular Exam Cardiovascular Exam: REGULAR RHYTHM - GI/Abdominal Exam GI & Abdominal Exam: Soft, Normal Bowel Sounds Assessment and Plan (1) Dyspnea Assessment & Plan: Continue antibiotics as per infectious disease Clinically patient condition improving Continue IV steroids and follow-up chest x-ray Status: Acute (2) HIV antibody positive Status: Acute
--- NOTE | 2016-06-16 16:50 | CP.PCM.PN ---
Subjective - Date & Time of Evaluation Date of Evaluation: 06/15/16 Time of Evaluation: 09:38 - Subjective Subjective: Patient seen and examined. Patient states breathing has much improved comfortable in no distress Objective - Vital Signs/Intake and Output Vital Signs (last 24 hours): Temp Pulse Resp BP Pulse Ox 97.5 F L 88 22 116/66 95 06/16/16 15:25 06/16/16 15:25 06/16/16 15:57 06/16/16 15:25 06/16/16 15:25 Intake and Output: 06/16/16 06/16/16 06:59 18:59 Intake Total 2390 480 Output Total 1100 Balance 1290 480 - Medications Medications: Current Medications Albuterol/Ipratropium (Duoneb 3 Mg/0.5 Mg (3 Ml) Ud) 3 ml INH RQ6 [facility] Last Admin: 06/16/16 13:32 Dose: 3 ml Enoxaparin Sodium (Lovenox) 40 mg SC DAILY [facility] Last Admin: 06/16/16 09:28 Dose: 40 mg Folic Acid (Folic Acid) 1 mg PO DAILY [facility] Last Admin: 06/16/16 09:29 Dose: 1 mg Trimethoprim/Sulfamethoxazole (240 mg/ Dextrose) 250 mls @ 167 mls/hr IVPB Q12H [facility] Last Admin: 06/16/16 13:30 Dose: 167 mls/hr Imipenem/Cilastatin Sodium 500 (mg/ Sodium Chloride) 100 mls @ 100 mls/hr IVPB Q8H [facility] Last Admin: 06/16/16 11:00 Dose: 100 mls/hr Methylprednisolone (Solu-Medrol) 40 mg IVP Q8 [facility] Last Admin: 06/16/16 13:58 Dose: 40 mg Nystatin (Nystatin Oral Susp) 5 ml PO QID [facility] Last Admin: 06/16/16 13:59 Dose: 5 ml Pneumococcal Polyvalent Vaccine (Pneumovax 23 Vaccine) 0.5 ml IM .ONCE ONE Stop: 06/17/16 10:01 - Labs Labs: 06/15/16 07:30 06/15/16 10:06 - Constitutional Appears: Well - Head Exam Head Exam: ATRAUMATIC, NORMAL INSPECTION, NORMOCEPHALIC - Eye Exam Eye Exam: EOMI, Normal appearance, PERRL Pupil Exam: NORMAL ACCOMODATION, PERRL - Respiratory Exam Respiratory Exam: Clear to Ausculation Bilateral, NORMAL BREATHING PATTERN - Cardiovascular Exam Cardiovascular Exam: REGULAR RHYTHM, +S1, +S2. absent: Murmur - GI/Abdominal Exam GI & Abdominal Exam: Soft, Normal Bowel Sounds. absent: Tenderness Assessment and Plan (1) Dyspnea Status: Acute (2) Interstitial pneumonia Status: Acute (3) Respiratory distress Status: Acute (4) HIV antibody positive Status: Acute
--- NOTE | 2016-06-16 16:51 | CP.PCM.PN ---
Subjective - Date & Time of Evaluation Date of Evaluation: 06/16/16 Time of Evaluation: 09:38 - Subjective Subjective: Patient seen and examined. Still having cough which is mostly dry but the breathing has much improved Denies fever or chills, denies chest pain Objective - Vital Signs/Intake and Output Vital Signs (last 24 hours): Temp Pulse Resp BP Pulse Ox 97.5 F L 88 22 116/66 95 06/16/16 15:25 06/16/16 15:25 06/16/16 15:57 06/16/16 15:25 06/16/16 15:25 Intake and Output: 06/16/16 06/16/16 06:59 18:59 Intake Total 2390 480 Output Total 1100 Balance 1290 480 - Medications Medications: Current Medications Albuterol/Ipratropium (Duoneb 3 Mg/0.5 Mg (3 Ml) Ud) 3 ml INH RQ6 [facility] Last Admin: 06/16/16 13:32 Dose: 3 ml Enoxaparin Sodium (Lovenox) 40 mg SC DAILY [facility] Last Admin: 06/16/16 09:28 Dose: 40 mg Folic Acid (Folic Acid) 1 mg PO DAILY [facility] Last Admin: 06/16/16 09:29 Dose: 1 mg Trimethoprim/Sulfamethoxazole (240 mg/ Dextrose) 250 mls @ 167 mls/hr IVPB Q12H [facility] Last Admin: 06/16/16 13:30 Dose: 167 mls/hr Imipenem/Cilastatin Sodium 500 (mg/ Sodium Chloride) 100 mls @ 100 mls/hr IVPB Q8H [facility] Last Admin: 06/16/16 11:00 Dose: 100 mls/hr Methylprednisolone (Solu-Medrol) 40 mg IVP Q8 [facility] Last Admin: 06/16/16 13:58 Dose: 40 mg Nystatin (Nystatin Oral Susp) 5 ml PO QID [facility] Last Admin: 06/16/16 13:59 Dose: 5 ml Pneumococcal Polyvalent Vaccine (Pneumovax 23 Vaccine) 0.5 ml IM .ONCE ONE Stop: 06/17/16 10:01 - Labs Labs: 06/15/16 07:30 06/15/16 10:06 - Constitutional Appears: Well - Head Exam Head Exam: ATRAUMATIC, NORMAL INSPECTION, NORMOCEPHALIC - Eye Exam Eye Exam: EOMI, Normal appearance, PERRL Pupil Exam: NORMAL ACCOMODATION, PERRL - Respiratory Exam Respiratory Exam: Decreased Breath Sounds, Rales, Rhonchi - Cardiovascular Exam Cardiovascular Exam: REGULAR RHYTHM, +S1, +S2. absent: Murmur - GI/Abdominal Exam GI & Abdominal Exam: Soft, Normal Bowel Sounds. absent: Tenderness Assessment and Plan (1) Dyspnea Status: Acute (2) Interstitial pneumonia Status: Acute (3) Respiratory distress Status: Acute (4) HIV antibody positive Status: Acute
--- NOTE | 2016-06-16 21:46 | CP.PCM.PN ---
Subjective - Date & Time of Evaluation Date of Evaluation: 06/16/16 Time of Evaluation: 21:46 - Subjective Subjective: afebrile, Less dyspneic c/o dry cough with little or no expectoration. Pulse ox 94% on Vapotherm. Objective - Vital Signs/Intake and Output Vital Signs (last 24 hours): Temp Pulse Resp BP Pulse Ox 97.5 F L 88 22 116/66 95 06/16/16 15:25 06/16/16 15:25 06/16/16 15:57 06/16/16 15:25 06/16/16 15:25 Intake and Output: 06/16/16 06/17/16 18:59 06:59 Intake Total 480 Balance 480 - Medications Medications: Current Medications Albuterol/Ipratropium (Duoneb 3 Mg/0.5 Mg (3 Ml) Ud) 3 ml INH RQ6 [facility] Last Admin: 06/16/16 19:45 Dose: 3 ml Enoxaparin Sodium (Lovenox) 40 mg SC DAILY [facility] Last Admin: 06/16/16 09:28 Dose: 40 mg Folic Acid (Folic Acid) 1 mg PO DAILY [facility] Last Admin: 06/16/16 09:29 Dose: 1 mg Trimethoprim/Sulfamethoxazole (240 mg/ Dextrose) 250 mls @ 167 mls/hr IVPB Q12H [facility] Last Admin: 06/16/16 13:30 Dose: 167 mls/hr Imipenem/Cilastatin Sodium 500 (mg/ Sodium Chloride) 100 mls @ 100 mls/hr IVPB Q8H [facility] Last Admin: 06/16/16 18:53 Dose: 100 mls/hr Methylprednisolone (Solu-Medrol) 40 mg IVP Q8 [facility] Last Admin: 06/16/16 13:58 Dose: 40 mg Nystatin (Nystatin Oral Susp) 5 ml PO QID [facility] Last Admin: 06/16/16 18:52 Dose: 5 ml Pneumococcal Polyvalent Vaccine (Pneumovax 23 Vaccine) 0.5 ml IM .ONCE ONE Stop: 06/17/16 10:01 - Labs Labs: 06/15/16 07:30 06/15/16 10:06 - Constitutional Appears: No Acute Distress - Head Exam Head Exam: NORMAL INSPECTION - Eye Exam Eye Exam: EOMI, PERRL. absent: Scleral icterus - ENT Exam ENT Exam: Mucous Membranes Dry (oral thrush) - Neck Exam Neck Exam: Normal Inspection. absent: Lymphadenopathy, Thyromegaly - Respiratory Exam Respiratory Exam: Rhonchi (bilateral rhonchi.) - Cardiovascular Exam Cardiovascular Exam: REGULAR RHYTHM, +S1, +S2 - GI/Abdominal Exam GI & Abdominal Exam: Soft, Normal Bowel Sounds. absent: Organomegaly - Extremities Exam Extremities Exam: Normal Capillary Refill. absent: Calf Tenderness, Pedal Edema - Neurological Exam Neurological Exam: Alert, Awake, CN II-XII Intact, Normal Gait, Oriented x3, Reflexes Normal - Psychiatric Exam Psychiatric exam: Normal Mood - Skin Skin Exam: Normal Color, Warm Assessment and Plan (1) Interstitial pneumonia Status: Acute (2) Dyspnea Status: Acute (3) HIV antibody positive Status: Acute (4) Oral candidiasis Status: Acute - Assessment and Plan (Free Text) Assessment: PLAN; CONTINUE iv bACTRIM 240 MG iv PIGGYBACK EVERY 12 HOURLY 06/13/16. CONTINUE iv pRIMAXIN 500MILLIGRAMS iv PIGGYBACK EVERY 8 HOURLY 06/14/16.. Continue IV steroids as per pulmonary START iv BY MOUTH NYSTATIN 5 Ml SWISH AND SWALLOW 4 TIMES A DAY.06/14/16 FOLLOW-UP SPUTUM CULTURES. F/U CHEST X-RAY. CONFIRMATORY TEST FOR hiv 1 ANTIBODY FOURTH-GENERATION TEST- PENDING LYMPHOCYTE SUBSET STUDIES.-PENDING. WILL INITIATE HAART THERAPY IF FOURTH-GENERATION HIV TEST COMES BACK POSITIVE
[2016-06-17] MEDS: Sulfamethoxazole/Trimethoprim 240 MG in Dextrose 5% In Water 250 ML IVPB SCH ×2 (00:30→11:54)
[2016-06-17] MEDS: Albuterol-Ipratrop 3 mg / 0.5 (3 ml) UD INH SCH ×4 (01:33→19:45)
[2016-06-17] MEDS: MethylPREDNISolone 40 mg Vial IVP SCH ×3 (06:24→21:09)
[2016-06-17 09:17] LABS: TOXOPLASMA IGM AB Negative (Negative)
[2016-06-17] MEDS: Nystatin 100,000 Units/ml Oral Susp 5 ml UD PO SCH ×4 (09:46→21:03)
[2016-06-17] MEDS: Enoxaparin 40 mg Syringe SC SCH (09:46)
[2016-06-17] MEDS ORDERED: Pneumococcal 23-Valent Vaccine IM ONE (10:00)
--- NOTE | 2016-06-17 11:24 | CP.PCM.PN ---
Subjective - Date & Time of Evaluation Date of Evaluation: 06/17/16 Time of Evaluation: 09:00 - Subjective Subjective: Patient seen and examined. Overall condition much improved but still remains on high flow oxygen Saturation 97% on 100% nonrebreather mask Still complaining of dyspnea on exertion and slight cough Objective - Vital Signs/Intake and Output Vital Signs (last 24 hours): Temp Pulse Resp BP Pulse Ox 98.4 F 90 20 113/61 93 L 06/17/16 07:15 06/17/16 10:58 06/17/16 07:39 06/17/16 07:15 06/17/16 07:15 Intake and Output: 06/17/16 06/17/16 06:59 18:59 Intake Total 2195 Output Total 1000 Balance 1195 - Medications Medications: Current Medications Albuterol/Ipratropium (Duoneb 3 Mg/0.5 Mg (3 Ml) Ud) 3 ml INH RQ6 [facility] Last Admin: 06/17/16 07:38 Dose: 3 ml Enoxaparin Sodium (Lovenox) 40 mg SC DAILY [facility] Last Admin: 06/17/16 09:46 Dose: 40 mg Folic Acid (Folic Acid) 1 mg PO DAILY [facility] Last Admin: 06/17/16 09:47 Dose: 1 mg Trimethoprim/Sulfamethoxazole (240 mg/ Dextrose) 250 mls @ 167 mls/hr IVPB Q12H [facility] Last Admin: 06/17/16 00:30 Dose: 167 mls/hr Imipenem/Cilastatin Sodium 500 (mg/ Sodium Chloride) 100 mls @ 100 mls/hr IVPB Q8H [facility] Last Admin: 06/17/16 10:59 Dose: 100 mls/hr Methylprednisolone (Solu-Medrol) 40 mg IVP Q8 [facility] Last Admin: 06/17/16 06:24 Dose: 40 mg Nystatin (Nystatin Oral Susp) 5 ml PO QID [facility] Last Admin: 06/17/16 09:46 Dose: 5 ml - Labs Labs: 06/15/16 07:30 06/15/16 10:06 - Head Exam Head Exam: ATRAUMATIC, NORMOCEPHALIC - Eye Exam Eye Exam: Normal appearance - ENT Exam ENT Exam: Mucous Membranes Moist - Neck Exam Neck Exam: Normal Inspection - Respiratory Exam Respiratory Exam: Rales - Cardiovascular Exam Cardiovascular Exam: REGULAR RHYTHM - GI/Abdominal Exam GI & Abdominal Exam: Soft, Normal Bowel Sounds - Extremities Exam Extremities Exam: Normal Inspection - Neurological Exam Neurological Exam: Alert, Oriented x3 Assessment and Plan (1) Dyspnea Assessment & Plan: Secondary to PCP pneumonia Continue antibiotics and IV steroids and follow-up chest x-ray Status: Acute (2) HIV antibody positive Status: Acute
--- NOTE | 2016-06-17 12:52 | RAD ---
PROCEDURE: CHEST RADIOGRAPH, 1 VIEW HISTORY: f/u pneumonia COMPARISON: None available. FINDINGS: LUNGS: Diffuse increased interstitial lung markings bilaterally suggestive for edema versus infiltrate. Clinical correlation. Underlying fibrotic changes cannot be excluded. PLEURA: No pneumothorax or pleural fluid seen. CARDIOVASCULAR: Normal. OSSEOUS STRUCTURES: No significant abnormalities. VISUALIZED UPPER ABDOMEN: Normal. OTHER FINDINGS: None. IMPRESSION: No focal infiltrate or effusion. Mild right hilar prominence. Small nodular density at the left lung base may represent confluence of shadows with ribs and vessels. Correlation with prior study if available may be helpful.
--- NOTE | 2016-06-17 14:10 | CP.PCM.PN ---
Subjective - Date & Time of Evaluation Date of Evaluation: 06/17/16 Time of Evaluation: 14:10 - Subjective Subjective: AFEBRILE FEELING MUCH IMPROVED BUT STILL ON HIGH FLOW OXYGEN.. C/O DYSPNEA ON EXERTION DRY COUGH. Objective - Vital Signs/Intake and Output Vital Signs (last 24 hours): Temp Pulse Resp BP Pulse Ox 98.4 F 90 20 113/61 97 06/17/16 07:15 06/17/16 10:58 06/17/16 07:39 06/17/16 07:15 06/17/16 11:31 Intake and Output: 06/17/16 06/17/16 06:59 18:59 Intake Total 2195 Output Total 1000 Balance 1195 - Medications Medications: Current Medications Albuterol/Ipratropium (Duoneb 3 Mg/0.5 Mg (3 Ml) Ud) 3 ml INH RQ6 [facility] Last Admin: 06/17/16 13:18 Dose: 3 ml Enoxaparin Sodium (Lovenox) 40 mg SC DAILY [facility] Last Admin: 06/17/16 09:46 Dose: 40 mg Folic Acid (Folic Acid) 1 mg PO DAILY [facility] Last Admin: 06/17/16 09:47 Dose: 1 mg Trimethoprim/Sulfamethoxazole (240 mg/ Dextrose) 250 mls @ 167 mls/hr IVPB Q12H [facility] Last Admin: 06/17/16 11:54 Dose: 167 mls/hr Imipenem/Cilastatin Sodium 500 (mg/ Sodium Chloride) 100 mls @ 100 mls/hr IVPB Q8H [facility] Last Admin: 06/17/16 10:59 Dose: 100 mls/hr Methylprednisolone (Solu-Medrol) 40 mg IVP Q8 [facility] Last Admin: 06/17/16 14:09 Dose: 40 mg Nystatin (Nystatin Oral Susp) 5 ml PO QID [facility] Last Admin: 06/17/16 14:09 Dose: 5 ml - Labs Labs: 06/15/16 07:30 06/15/16 10:06 - Constitutional Appears: No Acute Distress - Head Exam Head Exam: NORMAL INSPECTION - Eye Exam Eye Exam: EOMI, PERRL - ENT Exam ENT Exam: Mucous Membranes Moist (ORAL CANDIDIASIS.) - Neck Exam Neck Exam: Normal Inspection. absent: Lymphadenopathy - Respiratory Exam Respiratory Exam: Rhonchi (BILATERAL) - Cardiovascular Exam Cardiovascular Exam: REGULAR RHYTHM, +S1, +S2 - GI/Abdominal Exam GI & Abdominal Exam: Soft, Normal Bowel Sounds - Extremities Exam Extremities Exam: absent: Calf Tenderness, Pedal Edema - Neurological Exam Neurological Exam: Alert, Awake, CN II-XII Intact, Oriented x3, Reflexes Normal - Psychiatric Exam Psychiatric exam: Normal Mood - Skin Skin Exam: Normal Color, Warm Assessment and Plan (1) Interstitial pneumonia Status: Acute (2) Dyspnea Status: Acute (3) HIV antibody positive Status: Acute (4) Oral candidiasis Status: Acute - Assessment and Plan (Free Text) Plan: PLAN; CONTINUE iv BACTRIM 240 MG iv PIGGYBACK EVERY 12 HOURLY 06/13/16. CONTINUE iv PRIMAXIN 500MILLIGRAMS iv PIGGYBACK EVERY 8 HOURLY 06/14/16.. ON BY MOUTH NYSTATIN 5 Ml SWISH AND SWALLOW 4 TIMES A DAY.06/14/16 ON iv SOLU-mEDROL 40 MG EVERY 8 HOURLY PER PULMONARY. FOLLOW-UP SPUTUM CULTURES. F/U CHEST X-RAY. CONFIRMATORY TEST FOR hiv 1 ANTIBODY FOURTH-GENERATION TEST- PENDING LYMPHOCYTE SUBSET STUDIES.-PENDING.
[2016-06-17] MEDS: Sodium Chloride 0.9% 1,000 ML IV SCH (21:04)
--- NOTE | 2016-06-17 23:58 | CP.PCM.PN ---
Subjective - Date & Time of Evaluation Date of Evaluation: 06/17/16 Time of Evaluation: 09:39 - Subjective Subjective: Patient seen and examined.Pt is improving, on bactrim for PCP, on 40% oxygenSaturation 97% on 100% nonrebreather mask Still complaining of dyspnea on exertion and slight cough, pending CD4 count Objective - Vital Signs/Intake and Output Vital Signs (last 24 hours): Temp Pulse Resp BP Pulse Ox 97.5 F L 80 22 118/64 96 06/17/16 15:29 06/17/16 15:29 06/17/16 15:29 06/17/16 15:29 06/17/16 15:29 Intake and Output: 06/17/16 06/18/16 18:59 06:59 Intake Total 1350 Balance 1350 - Medications Medications: Current Medications Albuterol/Ipratropium (Duoneb 3 Mg/0.5 Mg (3 Ml) Ud) 3 ml INH RQ6 [facility] Last Admin: 06/17/16 19:45 Dose: 3 ml Enoxaparin Sodium (Lovenox) 40 mg SC DAILY [facility] Last Admin: 06/17/16 09:46 Dose: 40 mg Folic Acid (Folic Acid) 1 mg PO DAILY [facility] Last Admin: 06/17/16 09:47 Dose: 1 mg Trimethoprim/Sulfamethoxazole (240 mg/ Dextrose) 250 mls @ 167 mls/hr IVPB Q12H [facility] Last Admin: 06/17/16 11:54 Dose: 167 mls/hr Imipenem/Cilastatin Sodium 500 (mg/ Sodium Chloride) 100 mls @ 100 mls/hr IVPB Q8H [facility] Last Admin: 06/17/16 18:19 Dose: 100 mls/hr Methylprednisolone (Solu-Medrol) 40 mg IVP Q8 [facility] Last Admin: 06/17/16 21:09 Dose: 40 mg Nystatin (Nystatin Oral Susp) 5 ml PO QID [facility] Last Admin: 06/17/16 21:03 Dose: 5 ml - Labs Labs: 06/15/16 07:30 06/15/16 10:06 - Constitutional Appears: No Acute Distress, Chronically Ill - Head Exam Head Exam: ATRAUMATIC, NORMAL INSPECTION, NORMOCEPHALIC - Eye Exam Eye Exam: EOMI, Normal appearance, PERRL Pupil Exam: NORMAL ACCOMODATION, PERRL - Respiratory Exam Respiratory Exam: Decreased Breath Sounds, Rales, Wheezes - Cardiovascular Exam Cardiovascular Exam: REGULAR RHYTHM, +S1, +S2. absent: Murmur - GI/Abdominal Exam GI & Abdominal Exam: Soft, Normal Bowel Sounds. absent: Tenderness Assessment and Plan (1) Dyspnea Status: Acute (2) Interstitial pneumonia Status: Acute (3) Respiratory distress Status: Acute (4) HIV antibody positive Status: Acute
[2016-06-18] MEDS: Sulfamethoxazole/Trimethoprim 240 MG in Dextrose 5% In Water 250 ML IVPB SCH ×2 (00:19→13:30)
[2016-06-18 01:32] VITALS: RESP 20
[2016-06-18] MEDS: Albuterol-Ipratrop 3 mg / 0.5 (3 ml) UD INH SCH ×3 (02:30→13:17)
[2016-06-18] MEDS: MethylPREDNISolone 40 mg Vial IVP SCH ×3 (06:25→21:30)
--- NOTE | 2016-06-18 10:08 | CP.PCM.PN ---
Subjective - Date & Time of Evaluation Date of Evaluation: 06/18/16 Time of Evaluation: 09:10 - Subjective Subjective: patient seen and examined. On 50% Ventimask saturation in the mid 90 Complaining of slight cough but overall condition is improving complaning of slight cough and dyspn on exertion Objective - Vital Signs/Intake and Output Vital Signs (last 24 hours): Temp Pulse Resp BP Pulse Ox 98.2 F 77 20 127/73 95 06/18/16 07:00 06/18/16 07:00 06/18/16 07:00 06/18/16 07:00 06/18/16 07:00 Intake and Output: 06/18/16 06/18/16 06:59 18:59 Intake Total 990 Output Total 1800 Balance -810 - Medications Medications: Current Medications Albuterol/Ipratropium (Duoneb 3 Mg/0.5 Mg (3 Ml) Ud) 3 ml INH RQ6 [facility] Last Admin: 06/18/16 07:30 Dose: 3 ml Enoxaparin Sodium (Lovenox) 40 mg SC DAILY [facility] Last Admin: 06/17/16 09:46 Dose: 40 mg Folic Acid (Folic Acid) 1 mg PO DAILY [facility] Last Admin: 06/17/16 09:47 Dose: 1 mg Trimethoprim/Sulfamethoxazole (240 mg/ Dextrose) 250 mls @ 167 mls/hr IVPB Q12H [facility] Last Admin: 06/18/16 00:19 Dose: 167 mls/hr Imipenem/Cilastatin Sodium 500 (mg/ Sodium Chloride) 100 mls @ 100 mls/hr IVPB Q8H [facility] Last Admin: 06/18/16 04:00 Dose: 100 mls/hr Methylprednisolone (Solu-Medrol) 40 mg IVP Q8 [facility] Last Admin: 06/18/16 06:25 Dose: 40 mg Nystatin (Nystatin Oral Susp) 5 ml PO QID [facility] Last Admin: 06/17/16 21:03 Dose: 5 ml Pneumococcal Polyvalent Vaccine (Pneumovax 23 Vaccine) 0.5 ml IM .ONCE ONE Stop: 06/21/16 08:00 - Labs Labs: 06/15/16 07:30 06/15/16 10:06 - Head Exam Head Exam: ATRAUMATIC, NORMOCEPHALIC - Eye Exam Eye Exam: Normal appearance - ENT Exam ENT Exam: Mucous Membranes Moist - Neck Exam Neck Exam: Normal Inspection - Respiratory Exam Respiratory Exam: Rales - Cardiovascular Exam Cardiovascular Exam: REGULAR RHYTHM - GI/Abdominal Exam GI & Abdominal Exam: Soft, Normal Bowel Sounds - Extremities Exam Extremities Exam: Full ROM, Normal Inspection Assessment and Plan (1) Dyspnea Assessment & Plan: chest x-ray consistent with bilateral infiltrate Continue antibiotics for now Check echocardiogram Status: Acute (2) HIV antibody positive Status: Acute
[2016-06-18] MEDS: Enoxaparin 40 mg Syringe SC SCH (10:47)
[2016-06-18] MEDS: Nystatin 100,000 Units/ml Oral Susp 5 ml UD PO SCH ×4 (10:47→21:30)
[2016-06-18] MEDS: Sodium Chloride 0.9% 1,000 ML IV SCH (10:53)
[2016-06-18 13:51] LABS: BASO % 0.2 % (0.0-2.0); HEMATOCRIT 38.6 % (35.0-51.0); LYMPH # 0.6 K/uL (1.0-4.3); LYMPH % 7.5 % (20.0-40.0); MEAN CORPUSCULAR HGB CONC 33.7 g/dL (33.0-37.0); MEAN PLATELET VOLUME 7.2 fL (7.2-11.7); MONO # 0.2 K/uL (0.0-0.8); MONO % 2.9 % (0.0-10.0); NRBC % 0.1 % (0.0-2.0); PLATELET COUNT 371 K/uL (130-400); RED CELL DISTRIBUTION WIDTH 14.9 % (11.5-14.5); WHITE BLOOD COUNT 8.2 K/uL (4.8-10.8)
--- NOTE | 2016-06-18 13:54 | CP.PCM.PN ---
Subjective - Date & Time of Evaluation Date of Evaluation: 06/18/16 Time of Evaluation: 13:54 - Subjective Subjective: CHIEF COMPLAINTS TODAY : afebrile, on Ventimask c/o dyspnea on exertion. Denies dysphagia. ROS. HEENT : N. +ve ORAL THRUSH. Resp : No SOB wheezing, cough Cardio : No CP, PND orthopnea GI : No abd. Pain, n/v [employer] : No headache , focal deficit. Musculoskel : N Ext. : Pedal pulses intact, no edema or calf pain Derm : N Psych : N. PE. Pt. is alert awake in no distress. V.S As noted in the chart Head ,ear nose,throat and eyes : Normal. +VE ORAL CANDIDIASIS Neck : Supple with normal carotids. Lungs: BILATERAL RHONCHI/EXPIRATORY WHEEZE. Heart : S1 & S2 normal . . No murmur. S4 + Abd : Soft non tender with normal bowel sounds. Neuro : Moves all ext. with no localized deficit. Ext : No edema with intact pulses. Neg. calf tenderness Derm : No rashes or decubitus ulcer. Radiology/Labs wbc 8.2 CREAT 0.7/bun 14 LFTS OK NA 128 ESR 115 CD4 HELPER CELLS; 36 VERY LOW. ( ADV AIDS - *STAGE 4. CD4/CD8 RATIOS; 0.09 VERY LOW HIV-1 FOURTH-GENERATION TEST REACTIVE. Asssessment : INTERSTITIAL B/L PNEUMONIA -PROBABLE PCP W HYPOXEMIA ORAL CANDIDIASIS. ADVANCED AIDS Plan : CONTINUE iv BACTRIM 240 MG iv PIGGYBACK EVERY 12 HOURLY 06/13/16. CONTINUE iv PRIMAXIN 500MILLIGRAMS iv PIGGYBACK EVERY 8 HOURLY 06/14/16.. ON BY MOUTH NYSTATIN 5 Ml SWISH AND SWALLOW 4 TIMES A DAY.06/14/16 ON iv SOLU-mEDROL 40 MG EVERY 8 HOURLY PER PULMONARY. START zITHROMAX 600MG 2 TABLETS/WEEKLY WITH FOOD IN AM/AND EVERY TUESDAY FOR MARJAN PROPHYLAXIS. AWAIT HIV SILVA TYPING AND HLA-B 5701 FOR ABACAVIR HYPERSENSITIVITY BEFORE STARTING HAART RX. USUALLY RECOMMENDED EARLY WITHIN 14 DAYS OF OI IT MAY CAUSE IMMUNE RECONSTITUTION SYNDROME WITH HIS ACUTE OPPORTUNISTIC INFECTION. WILL ALSO CHECK FOR QFT- GOLD TB TESTING TO RULE OUT LATENT VS ACTIVE TB Objective - Vital Signs/Intake and Output Vital Signs (last 24 hours): Temp Pulse Resp BP Pulse Ox 98.2 F 77 20 127/73 95 06/18/16 07:00 06/18/16 07:00 06/18/16 07:00 06/18/16 07:00 06/18/16 07:00 Intake and Output: 06/18/16 06/18/16 06:59 18:59 Intake Total 990 Output Total 1800 Balance -810 - Medications Medications: Current Medications Albuterol/Ipratropium (Duoneb 3 Mg/0.5 Mg (3 Ml) Ud) 3 ml INH RQ6 [facility] Last Admin: 06/18/16 13:17 Dose: 3 ml Enoxaparin Sodium (Lovenox) 40 mg SC DAILY [facility] Last Admin: 06/18/16 10:47 Dose: 40 mg Folic Acid (Folic Acid) 1 mg PO DAILY [facility] Last Admin: 06/18/16 10:47 Dose: 1 mg Trimethoprim/Sulfamethoxazole (240 mg/ Dextrose) 250 mls @ 167 mls/hr IVPB Q12H [facility] Last Admin: 06/18/16 00:19 Dose: 167 mls/hr Imipenem/Cilastatin Sodium 500 (mg/ Sodium Chloride) 100 mls @ 100 mls/hr IVPB Q8H [facility] Last Admin: 06/18/16 10:48 Dose: 100 mls/hr Methylprednisolone (Solu-Medrol) 40 mg IVP Q8 [facility] Last Admin: 06/18/16 06:25 Dose: 40 mg Nystatin (Nystatin Oral Susp) 5 ml PO QID [facility] Last Admin: 06/18/16 10:47 Dose: 5 ml Pneumococcal Polyvalent Vaccine (Pneumovax 23 Vaccine) 0.5 ml IM .ONCE ONE Stop: 06/21/16 08:00 - Labs Labs: 06/18/16 13:42 06/15/16 10:06 Assessment and Plan (1) Interstitial pneumonia Status: Acute (2) Dyspnea Status: Acute (3) HIV antibody positive Status: Acute (4) Oral candidiasis Status: Acute
[2016-06-18 14:22] LABS: NEUTROPHIL 93 % (50-75); TOTAL CELLS COUNTED 100
[2016-06-18 14:34] LABS: CHLORIDE 105 mmol/L (98-107); POTASSIUM 4.5 mmol/L (3.6-5.2); SODIUM 134 mmol/L (132-148)
[2016-06-18 14:36] LABS: ALB/GLOB RATIO 0.7 (1.0-2.1); AST/SGOT 46 U/L (17-59); BILIRUBIN,TOTAL < 0.1 mg/dL (0.2-1.3); BLOOD UREA NITROGEN 14 mg/dL (9-20); CARBON DIOXIDE 18 mmol/L (22-30); GFR AFRICAN-AMERICAN > 60; TOTAL PROTEIN 7.2 g/dL (6.3-8.3)
[2016-06-18 14:37] LABS: ALKALINE PHOSPHATASE 102 U/L (38-126); ALT/SGPT 50 U/L (21-72); CALCIUM 8.3 mg/dl (8.6-10.4); GLUCOSE,RANDOM 165 mg/dL (75-110)
--- NOTE | 2016-06-18 22:54 | CP.PCM.PN ---
Subjective - Date & Time of Evaluation Date of Evaluation: 06/18/16 Time of Evaluation: 09:39 - Subjective Subjective: Patient seen and examined.Pt is improving, on bactrim for PCP, on 40% oxygenSaturation 97% on 100% nonrebreather mask Still complaining of dyspnea on exertion and slight cough, pending CD4 count Objective - Vital Signs/Intake and Output Vital Signs (last 24 hours): Temp Pulse Resp BP Pulse Ox 97.8 F 80 20 116/68 97 06/18/16 16:03 06/18/16 16:03 06/18/16 16:03 06/18/16 16:03 06/18/16 16:03 - Medications Medications: Current Medications Enoxaparin Sodium (Lovenox) 40 mg SC DAILY [facility] Last Admin: 06/18/16 10:47 Dose: 40 mg Folic Acid (Folic Acid) 1 mg PO DAILY [facility] Last Admin: 06/18/16 10:47 Dose: 1 mg Trimethoprim/Sulfamethoxazole (240 mg/ Dextrose) 250 mls @ 167 mls/hr IVPB Q12H [facility] Last Admin: 06/18/16 13:30 Dose: 167 mls/hr Imipenem/Cilastatin Sodium 500 (mg/ Sodium Chloride) 100 mls @ 100 mls/hr IVPB Q8H [facility] Last Admin: 06/18/16 18:37 Dose: 100 mls/hr Methylprednisolone (Solu-Medrol) 40 mg IVP Q8 [facility] Last Admin: 06/18/16 21:30 Dose: 40 mg Nystatin (Nystatin Oral Susp) 5 ml PO QID [facility] Last Admin: 06/18/16 21:30 Dose: 5 ml Pneumococcal Polyvalent Vaccine (Pneumovax 23 Vaccine) 0.5 ml IM .ONCE ONE Stop: 06/21/16 08:00 - Labs Labs: 06/18/16 13:42 06/18/16 13:42 - Constitutional Appears: Well - Head Exam Head Exam: ATRAUMATIC, NORMAL INSPECTION, NORMOCEPHALIC - ENT Exam ENT Exam: Mucous Membranes Moist, Normal Exam - Respiratory Exam Respiratory Exam: Decreased Breath Sounds, Rales, Rhonchi - Cardiovascular Exam Cardiovascular Exam: REGULAR RHYTHM, +S1, +S2. absent: Murmur - GI/Abdominal Exam GI & Abdominal Exam: Soft, Normal Bowel Sounds. absent: Tenderness Assessment and Plan (1) Dyspnea Status: Acute (2) Interstitial pneumonia Status: Acute (3) Respiratory distress Status: Acute (4) HIV antibody positive Status: Acute
[2016-06-19] MEDS: Sulfamethoxazole/Trimethoprim 240 MG in Dextrose 5% In Water 250 ML IVPB SCH ×2 (00:44→12:34)
[2016-06-19] MEDS: MethylPREDNISolone 40 mg Vial IVP SCH ×3 (05:18→22:04)
[2016-06-19] MEDS: Enoxaparin 40 mg Syringe SC SCH (10:19)
[2016-06-19] MEDS: Nystatin 100,000 Units/ml Oral Susp 5 ml UD PO SCH ×4 (10:20→22:04)
--- NOTE | 2016-06-19 14:30 | CP.PCM.PN ---
Subjective - Date & Time of Evaluation Date of Evaluation: 06/19/16 Time of Evaluation: 14:30 - Subjective Subjective: CHIEF COMPLAINTS TODAY : afebrile, on Ventimask c/o dyspnea on exertion. Denies dysphagia. ROS. HEENT : N. +ve ORAL THRUSH. Resp : No SOB wheezing, cough Cardio : No CP, PND orthopnea GI : No abd. Pain, n/v LEGAL EXAMINER : No headache , focal deficit. Musculoskel : N Ext. : Pedal pulses intact, no edema or calf pain Derm : N Psych : N. PE. Pt. is alert awake in no distress. V.S As noted in the chart Head ,ear nose,throat and eyes : Normal. +VE ORAL CANDIDIASIS Neck : Supple with normal carotids. Lungs: BILATERAL RHONCHI/EXPIRATORY WHEEZE. Heart : S1 & S2 normal . . No murmur. S4 + Abd : Soft non tender with normal bowel sounds. Neuro : Moves all ext. with no localized deficit. Ext : No edema with intact pulses. Neg. calf tenderness Derm : No rashes or decubitus ulcer. Radiology/Labs wbc 8.2 CREAT 0.7/bun 14 LFTS OK NA 128 ESR 115 HIV -1-RNA 37,9927 COPIES /ML HIV-1 NEGATIVE CD4 HELPER CELLS; 36 VERY LOW. ( ADV AIDS - *STAGE 4. CD4/CD8 RATIOS; 0.09 VERY LOW HIV-1 FOURTH-GENERATION TEST REACTIVE. THROAT CULTURE -VE BETA STREPT. Asssessment : INTERSTITIAL B/L PNEUMONIA -PROBABLE PCP W HYPOXEMIA ORAL CANDIDIASIS. ADVANCED AIDS Plan : CONTINUE iv BACTRIM 240 MG iv PIGGYBACK EVERY 12 HOURLY 06/13/16. CONTINUE iv PRIMAXIN 500MILLIGRAMS iv PIGGYBACK EVERY 8 HOURLY 06/14/16.. ON BY MOUTH NYSTATIN 5 Ml SWISH AND SWALLOW 4 TIMES A DAY.06/14/16 ON iv SOLU-mEDROL 40 MG EVERY 8 HOURLY PER PULMONARY. START zITHROMAX 600MG 2 TABLETS/WEEKLY WITH FOOD IN AM/AND EVERY TUESDAY FOR MARJAN PROPHYLAXIS. AWAIT HIV SILVA TYPING AND HLA-B 5701 FOR ABACAVIR HYPERSENSITIVITY BEFORE STARTING HAART RX. USUALLY RECOMMENDED EARLY WITHIN 14 DAYS OF OI IT MAY CAUSE IMMUNE RECONSTITUTION SYNDROME WITH HIS ACUTE OPPORTUNISTIC INFECTION. F/U QFT- GOLD TB TESTING TO RULE OUT LATENT VS ACTIVE TB Objective - Vital Signs/Intake and Output Vital Signs (last 24 hours): Temp Pulse Resp BP Pulse Ox 98 F 80 20 118/69 96 06/19/16 07:00 06/19/16 07:00 06/19/16 07:00 06/19/16 07:00 06/19/16 07:00 Intake and Output: 06/19/16 06/19/16 06:59 18:59 Intake Total 350 Output Total 1900 Balance -1550 - Medications Medications: Current Medications Enoxaparin Sodium (Lovenox) 40 mg SC DAILY [facility] Last Admin: 06/19/16 10:19 Dose: 40 mg Folic Acid (Folic Acid) 1 mg PO DAILY [facility] Last Admin: 06/19/16 10:20 Dose: 1 mg Trimethoprim/Sulfamethoxazole (240 mg/ Dextrose) 250 mls @ 167 mls/hr IVPB Q12H [facility] Last Admin: 06/19/16 12:34 Dose: 167 mls/hr Imipenem/Cilastatin Sodium 500 (mg/ Sodium Chloride) 100 mls @ 100 mls/hr IVPB Q8H [facility] Last Admin: 06/19/16 10:32 Dose: 100 mls/hr Methylprednisolone (Solu-Medrol) 40 mg IVP Q8 [facility] Last Admin: 06/19/16 13:51 Dose: 40 mg Nystatin (Nystatin Oral Susp) 5 ml PO QID [facility] Last Admin: 06/19/16 13:51 Dose: 5 ml Pneumococcal Polyvalent Vaccine (Pneumovax 23 Vaccine) 0.5 ml IM .ONCE ONE Stop: 06/21/16 08:00 - Labs Labs: 06/18/16 13:42 06/18/16 13:42 Assessment and Plan (1) Interstitial pneumonia Status: Acute (2) Dyspnea Status: Acute (3) HIV antibody positive Status: Acute (4) Oral candidiasis Status: Acute
[2016-06-20] MEDS: Sulfamethoxazole/Trimethoprim 240 MG in Dextrose 5% In Water 250 ML IVPB SCH ×2 (01:58→12:56)
[2016-06-20] MEDS: MethylPREDNISolone 40 mg Vial IVP SCH ×3 (07:13→22:00)
--- NOTE | 2016-06-20 07:45 | CP.PCM.PN ---
Subjective - Date & Time of Evaluation Date of Evaluation: 06/19/16 Time of Evaluation: 09:39 - Subjective Subjective: Pt seen and examined , is improving on medical optimization Objective - Vital Signs/Intake and Output Vital Signs (last 24 hours): Temp Pulse Resp BP Pulse Ox 98.2 F 78 20 124/73 96 06/19/16 23:30 06/19/16 23:30 06/19/16 23:30 06/19/16 23:30 06/19/16 23:30 Intake and Output: 06/20/16 06/20/16 06:59 18:59 Intake Total 300 Balance 300 - Medications Medications: Current Medications Enoxaparin Sodium (Lovenox) 40 mg SC DAILY [facility] Last Admin: 06/19/16 10:19 Dose: 40 mg Folic Acid (Folic Acid) 1 mg PO DAILY [facility] Last Admin: 06/19/16 10:20 Dose: 1 mg Trimethoprim/Sulfamethoxazole (240 mg/ Dextrose) 250 mls @ 167 mls/hr IVPB Q12H [facility] Last Admin: 06/20/16 01:58 Dose: 167 mls/hr Imipenem/Cilastatin Sodium 500 (mg/ Sodium Chloride) 100 mls @ 100 mls/hr IVPB Q8H [facility] Last Admin: 06/20/16 03:30 Dose: 100 mls/hr Methylprednisolone (Solu-Medrol) 40 mg IVP Q8 [facility] Last Admin: 06/20/16 07:13 Dose: 40 mg Nystatin (Nystatin Oral Susp) 5 ml PO QID [facility] Last Admin: 06/19/16 22:04 Dose: 5 ml Pneumococcal Polyvalent Vaccine (Pneumovax 23 Vaccine) 0.5 ml IM .ONCE ONE Stop: 06/21/16 08:00 - Labs Labs: 06/18/16 13:42 06/18/16 13:42 - Constitutional Appears: No Acute Distress, Cachectic, Chronically Ill - Eye Exam Eye Exam: EOMI, Normal appearance, PERRL Pupil Exam: NORMAL ACCOMODATION, PERRL - ENT Exam ENT Exam: Mucous Membranes Dry - Respiratory Exam Respiratory Exam: Decreased Breath Sounds, Rales, Wheezes - Cardiovascular Exam Cardiovascular Exam: REGULAR RHYTHM, +S1, +S2. absent: Murmur - Neurological Exam Neurological Exam: Alert, Awake, Oriented x3 - Psychiatric Exam Psychiatric exam: Depressed - Skin Skin Exam: Normal Color Assessment and Plan (1) Dyspnea Status: Acute (2) Interstitial pneumonia Status: Acute (3) Respiratory distress Status: Acute (4) HIV antibody positive Status: Acute
--- NOTE | 2016-06-20 08:12 | CP.PCM.PN ---
Subjective - Date & Time of Evaluation Date of Evaluation: 06/19/16 Time of Evaluation: 09:40 - Subjective Subjective: Pt is afebrile, remains sick, on antibiotics for PCP pnemonia Objective - Vital Signs/Intake and Output Vital Signs (last 24 hours): Temp Pulse Resp BP Pulse Ox 97.9 F 86 20 112/73 96 06/20/16 07:05 06/20/16 07:05 06/20/16 07:05 06/20/16 07:05 06/20/16 07:05 Intake and Output: 06/20/16 06/20/16 06:59 18:59 Intake Total 300 Balance 300 - Medications Medications: Current Medications Enoxaparin Sodium (Lovenox) 40 mg SC DAILY [facility] Last Admin: 06/19/16 10:19 Dose: 40 mg Folic Acid (Folic Acid) 1 mg PO DAILY [facility] Last Admin: 06/19/16 10:20 Dose: 1 mg Trimethoprim/Sulfamethoxazole (240 mg/ Dextrose) 250 mls @ 167 mls/hr IVPB Q12H [facility] Last Admin: 06/20/16 01:58 Dose: 167 mls/hr Imipenem/Cilastatin Sodium 500 (mg/ Sodium Chloride) 100 mls @ 100 mls/hr IVPB Q8H [facility] Last Admin: 06/20/16 03:30 Dose: 100 mls/hr Methylprednisolone (Solu-Medrol) 40 mg IVP Q8 [facility] Last Admin: 06/20/16 07:13 Dose: 40 mg Nystatin (Nystatin Oral Susp) 5 ml PO QID [facility] Last Admin: 06/19/16 22:04 Dose: 5 ml Pneumococcal Polyvalent Vaccine (Pneumovax 23 Vaccine) 0.5 ml IM .ONCE ONE Stop: 06/21/16 08:00 - Labs Labs: 06/18/16 13:42 06/18/16 13:42 - Constitutional Appears: No Acute Distress - Head Exam Head Exam: ATRAUMATIC, NORMAL INSPECTION, NORMOCEPHALIC - Eye Exam Eye Exam: EOMI, Normal appearance, PERRL Pupil Exam: NORMAL ACCOMODATION, PERRL - ENT Exam Additional comments: oral candidiasis - Respiratory Exam Respiratory Exam: Decreased Breath Sounds, Rales, Rhonchi - Cardiovascular Exam Cardiovascular Exam: REGULAR RHYTHM, +S1, +S2, +S4. absent: Murmur - GI/Abdominal Exam GI & Abdominal Exam: Soft, Normal Bowel Sounds. absent: Tenderness Assessment and Plan (1) Dyspnea Status: Acute (2) Interstitial pneumonia Status: Acute (3) Respiratory distress Status: Acute (4) HIV antibody positive Status: Acute - Assessment and Plan (Free Text) Assessment: Asssessment : INTERSTITIAL B/L PNEUMONIA -PROBABLE PCP W HYPOXEMIA ORAL CANDIDIASIS. ADVANCED AIDS Plan: Plan : CONTINUE iv BACTRIM 240 MG iv PIGGYBACK EVERY 12 HOURLY 06/13/16. CONTINUE iv PRIMAXIN 500MILLIGRAMS iv PIGGYBACK EVERY 8 HOURLY 06/14/16.. ON BY MOUTH NYSTATIN 5 Ml SWISH AND SWALLOW 4 TIMES A DAY.06/14/16 ON iv SOLU-mEDROL 40 MG EVERY 8 HOURLY PER PULMONARY. START zITHROMAX 600MG 2 TABLETS/WEEKLY WITH FOOD IN AM/AND EVERY TUESDAY FOR MARJAN PROPHYLAXIS. AWAIT HIV SILVA TYPING AND HLA-B 5701 FOR ABACAVIR HYPERSENSITIVITY BEFORE STARTING HAART RX. USUALLY RECOMMENDED EARLY WITHIN 14 DAYS OF OI IT MAY CAUSE IMMUNE RECONSTITUTION SYNDROME WITH HIS ACUTE OPPORTUNISTIC INFECTION. WILL ALSO CHECK FOR QFT- GOLD TB TESTING TO RULE OUT LATENT VS ACTIVE TB
[2016-06-20] MEDS: Enoxaparin 40 mg Syringe SC SCH (08:59)
[2016-06-20] MEDS: Nystatin 100,000 Units/ml Oral Susp 5 ml UD PO SCH ×4 (08:59→21:59)
--- NOTE | 2016-06-20 10:26 | CP.PCM.PN ---
Subjective - Date & Time of Evaluation Date of Evaluation: 06/20/16 Time of Evaluation: 10:24 - Subjective Subjective: patient seen and examined sitting comfortably in no acute distress Significant improvement in patien condition Denies cough, denies fever chills, denies chest pain Objective - Vital Signs/Intake and Output Vital Signs (last 24 hours): Temp Pulse Resp BP Pulse Ox 97.9 F 86 20 112/73 96 06/20/16 07:05 06/20/16 07:05 06/20/16 07:05 06/20/16 07:05 06/20/16 07:05 Intake and Output: 06/20/16 06/20/16 06:59 18:59 Intake Total 300 Balance 300 - Medications Medications: Current Medications Enoxaparin Sodium (Lovenox) 40 mg SC DAILY [facility] Last Admin: 06/20/16 08:59 Dose: 40 mg Folic Acid (Folic Acid) 1 mg PO DAILY [facility] Last Admin: 06/20/16 08:59 Dose: 1 mg Trimethoprim/Sulfamethoxazole (240 mg/ Dextrose) 250 mls @ 167 mls/hr IVPB Q12H [facility] Last Admin: 06/20/16 01:58 Dose: 167 mls/hr Imipenem/Cilastatin Sodium 500 (mg/ Sodium Chloride) 100 mls @ 100 mls/hr IVPB Q8H [facility] Last Admin: 06/20/16 10:15 Dose: 100 mls/hr Methylprednisolone (Solu-Medrol) 40 mg IVP Q8 [facility] Last Admin: 06/20/16 07:13 Dose: 40 mg Nystatin (Nystatin Oral Susp) 5 ml PO QID [facility] Last Admin: 06/20/16 08:59 Dose: 5 ml Pneumococcal Polyvalent Vaccine (Pneumovax 23 Vaccine) 0.5 ml IM .ONCE ONE Stop: 06/21/16 08:00 - Labs Labs: 06/18/16 13:42 06/18/16 13:42 - Head Exam Head Exam: ATRAUMATIC, NORMOCEPHALIC - Eye Exam Eye Exam: Normal appearance - ENT Exam ENT Exam: Mucous Membranes Moist - Respiratory Exam Respiratory Exam: Clear to Ausculation Bilateral - Cardiovascular Exam Cardiovascular Exam: REGULAR RHYTHM Assessment and Plan (1) Dyspnea Assessment & Plan: secondary to her PCP pneumonia Continue antibiotics per infectious disease Switch to p.o.steroids Status: Acute (2) HIV antibody positive Status: Acute
--- NOTE | 2016-06-20 18:31 | CP.PCM.PN ---
Subjective - Date & Time of Evaluation Date of Evaluation: 06/20/16 Time of Evaluation: 18:32 - Subjective Subjective: AFEBRILE., fEELS BETTER EACH DAY HERNANDEZ ON vENTIMASK. Objective - Vital Signs/Intake and Output Vital Signs (last 24 hours): Temp Pulse Resp BP Pulse Ox 97.9 F 86 20 112/73 96 06/20/16 07:05 06/20/16 07:05 06/20/16 07:05 06/20/16 07:05 06/20/16 07:05 Intake and Output: 06/20/16 06/20/16 06:59 18:59 Intake Total 300 750 Balance 300 750 - Medications Medications: Current Medications Enoxaparin Sodium (Lovenox) 40 mg SC DAILY [facility] Last Admin: 06/20/16 08:59 Dose: 40 mg Folic Acid (Folic Acid) 1 mg PO DAILY [facility] Last Admin: 06/20/16 08:59 Dose: 1 mg Trimethoprim/Sulfamethoxazole (240 mg/ Dextrose) 250 mls @ 167 mls/hr IVPB Q12H [facility] Last Admin: 06/20/16 12:56 Dose: 167 mls/hr Imipenem/Cilastatin Sodium 500 (mg/ Sodium Chloride) 100 mls @ 100 mls/hr IVPB Q8H [facility] Last Admin: 06/20/16 18:18 Dose: 100 mls/hr Methylprednisolone (Solu-Medrol) 40 mg IVP Q8 [facility] Last Admin: 06/20/16 13:00 Dose: 40 mg Nystatin (Nystatin Oral Susp) 5 ml PO QID [facility] Last Admin: 06/20/16 18:18 Dose: 5 ml Pneumococcal Polyvalent Vaccine (Pneumovax 23 Vaccine) 0.5 ml IM .ONCE ONE Stop: 06/21/16 08:00 - Labs Labs: 06/18/16 13:42 06/18/16 13:42 - Constitutional Appears: No Acute Distress - Head Exam Head Exam: NORMAL INSPECTION - Eye Exam Eye Exam: EOMI, PERRL - ENT Exam ENT Exam: Normal Oropharynx (ORAL CANDIDIASIS.) - Neck Exam Neck Exam: Normal Inspection. absent: Lymphadenopathy, Thyromegaly - Respiratory Exam Respiratory Exam: Rhonchi (BILATERAL RHONCHI.) - Cardiovascular Exam Cardiovascular Exam: Tachycardia, REGULAR RHYTHM, +S1, +S2 - GI/Abdominal Exam GI & Abdominal Exam: Soft, Normal Bowel Sounds. absent: Organomegaly - Extremities Exam Extremities Exam: Normal Capillary Refill. absent: Calf Tenderness, Pedal Edema - Neurological Exam Neurological Exam: Alert, Awake, CN II-XII Intact, Normal Gait, Oriented x3, Reflexes Normal - Psychiatric Exam Psychiatric exam: Normal Mood - Skin Skin Exam: Normal Color, Warm Assessment and Plan (1) Interstitial pneumonia Status: Acute (2) Dyspnea Status: Acute (3) HIV antibody positive Status: Acute (4) Oral candidiasis Status: Acute - Assessment and Plan (Free Text) Assessment: Asssessment : INTERSTITIAL B/L PNEUMONIA -PROBABLE PCP W HYPOXEMIA ORAL CANDIDIASIS. ADVANCED AIDS Plan : CONTINUE iv BACTRIM 240 MG iv PIGGYBACK EVERY 12 HOURLY 06/13/16. CONTINUE iv PRIMAXIN 500MILLIGRAMS iv PIGGYBACK EVERY 8 HOURLY 06/14/16.. ON BY MOUTH NYSTATIN 5 Ml SWISH AND SWALLOW 4 TIMES A DAY.06/14/16 ON iv SOLU-mEDROL 40 MG EVERY 8 HOURLY PER PULMONARY. START zITHROMAX 600MG 2 TABLETS/WEEKLY WITH FOOD IN AM/AND EVERY TUESDAY FOR MARJAN PROPHYLAXIS. AWAIT HIV SILVA TYPING AND HLA-B 5701 FOR ABACAVIR HYPERSENSITIVITY BEFORE STARTING HAART RX. USUALLY RECOMMENDED EARLY WITHIN 14 DAYS OF OI IT MAY CAUSE IMMUNE RECONSTITUTION SYNDROME WITH HIS ACUTE OPPORTUNISTIC INFECTION. WILL ALSO CHECK FOR QFT- GOLD TB TESTING TO RULE OUT LATENT VS ACTIVE TB
[2016-06-21] MEDS: Sulfamethoxazole/Trimethoprim 240 MG in Dextrose 5% In Water 250 ML IVPB SCH ×2 (01:07→12:28)
[2016-06-21] MEDS: MethylPREDNISolone 40 mg Vial IVP SCH ×2 (05:33→13:39)
[2016-06-21 07:31] VITALS: O2SAT 95
[2016-06-21] MEDS ORDERED: Pneumococcal 23-Valent Vaccine IM ONE ×2 (07:59→13:08)
[2016-06-21 08:52] VITALS: BP 111/67; PULSE 75; TEMP 98.3
[2016-06-21] MEDS: Enoxaparin 40 mg Syringe SC SCH (09:28)
[2016-06-21] MEDS: Nystatin 100,000 Units/ml Oral Susp 5 ml UD PO SCH ×2 (09:33→13:39)
--- NOTE | 2016-06-21 12:18 | CP.PCM.PN ---
Subjective - Date & Time of Evaluation Date of Evaluation: 06/21/16 Time of Evaluation: 12:17 - Subjective Subjective: Pt seen and examined, feels better, not short of breath, sitting comfortably in no acute distress Denies cough, denies fever chills ANXIOUS TO BE DISCHARGED. PULSE OX - 95% Objective - Vital Signs/Intake and Output Vital Signs (last 24 hours): Temp Pulse Resp BP Pulse Ox 98.3 F 75 20 111/67 95 06/21/16 08:52 06/21/16 08:52 06/21/16 08:52 06/21/16 08:52 06/21/16 08:52 Intake and Output: 06/21/16 06/21/16 06:59 18:59 Intake Total 470 Output Total 825 Balance -355 - Medications Medications: Current Medications Folic Acid (Folic Acid) 1 mg PO DAILY [facility] Last Admin: 06/21/16 09:28 Dose: 1 mg Trimethoprim/Sulfamethoxazole (240 mg/ Dextrose) 250 mls @ 167 mls/hr IVPB Q12H [facility] Last Admin: 06/21/16 01:07 Dose: 167 mls/hr Imipenem/Cilastatin Sodium 500 (mg/ Sodium Chloride) 100 mls @ 100 mls/hr IVPB Q8H [facility] Last Admin: 06/21/16 11:22 Dose: 100 mls/hr Methylprednisolone (Solu-Medrol) 40 mg IVP Q8 [facility] Last Admin: 06/21/16 05:33 Dose: 40 mg Nystatin (Nystatin Oral Susp) 5 ml PO QID [facility] Last Admin: 06/21/16 09:33 Dose: 5 ml - Labs Labs: 06/18/16 13:42 06/18/16 13:42 - Constitutional Appears: No Acute Distress - Head Exam Head Exam: NORMAL INSPECTION - Eye Exam Eye Exam: EOMI, PERRL - ENT Exam ENT Exam: Mucous Membranes Moist (ORAL THRUSH IMPROVED) - Neck Exam Neck Exam: Normal Inspection. absent: Lymphadenopathy - Respiratory Exam Respiratory Exam: Clear to Ausculation Bilateral - Cardiovascular Exam Cardiovascular Exam: REGULAR RHYTHM, +S1, +S2 - GI/Abdominal Exam GI & Abdominal Exam: Normal Bowel Sounds. absent: Organomegaly - Extremities Exam Extremities Exam: Normal Capillary Refill. absent: Calf Tenderness, Pedal Edema - Neurological Exam Neurological Exam: Alert, Awake - Psychiatric Exam Psychiatric exam: Normal Mood - Skin Skin Exam: Normal Color, Warm Assessment and Plan (1) Interstitial pneumonia Status: Acute (2) Dyspnea Status: Acute (3) HIV antibody positive Status: Acute (4) Oral candidiasis Status: Acute - Assessment and Plan (Free Text) Assessment: Asssessment : INTERSTITIAL B/L PNEUMONIA -PROBABLE PCP W HYPOXEMIA ORAL CANDIDIASIS. ADVANCED AIDS Plan : DISCONTINUE iv BACTRIM 240 MG iv PIGGYBACK EVERY 12 HOURLY 06/13/16. DISCONTINUE iv PRIMAXIN 500MILLIGRAMS iv PIGGYBACK EVERY 8 HOURLY 06/14/16.. ON BY MOUTH NYSTATIN 5 Ml SWISH AND SWALLOW 4 TIMES A DAY.06/14/16 DC iv SOLU-mEDROL 40 MG EVERY 8 HOURLY PER PULMONARY. START zITHROMAX 600MG 2 TABLETS/WEEKLY WITH FOOD IN AM/AND EVERY TUESDAY FOR MARJAN PROPHYLAXIS. PATIENT TO BE DISCHARGED ON; bY MOUTH bACTRIM 1 DOUBLE STRENGTH TWICE A DAY FOR 14 DAYS . zITHROMAX 600MG 2 TABLETS BY MOUTH ONCE WEEKLY ON saturdays.. pREDNISONE 20 MG BY MOUTH FOR 5 DAYS fOLLOWED BY 10 MG BY MOUTH FOR 5 DAYS FOLLOWED BY 5 MG BY MOUTH FOR 5 DAYS. PATIENT TO FOLLOW-UP WITH ID NEXT WEEK.[phone] pATIENT TO FOLLOW-UP WITH pmd NEXT WEEK. pATIENT INSTRUCTED THAT HE NEEDS TO BE STARTED ON HAART THERAPY SOON ON HIS RETURN TO OFFICE. AWAIT HIV SILVA TYPING AND HLA-B 5701 FOR ABACAVIR HYPERSENSITIVITY BEFORE STARTING HAART RX. USUALLY RECOMMENDED EARLY WITHIN 14 DAYS OF OI IT MAY CAUSE IMMUNE RECONSTITUTION SYNDROME WITH HIS ACUTE OPPORTUNISTIC INFECTION. F/U QFT- GOLD TB TESTING TO RULE OUT LATENT VS ACTIVE TB
--- NOTE | 2016-06-21 15:21 | CP.PCM.PN ---
Subjective - Date & Time of Evaluation Date of Evaluation: 06/21/16 Time of Evaluation: 10:00 - Subjective Subjective: patient seen and examined. sitting comfortably in no acute distress Denies cough, denies fever chills Objective - Vital Signs/Intake and Output Vital Signs (last 24 hours): Temp Pulse Resp BP Pulse Ox 98.3 F 75 20 111/67 95 06/21/16 08:52 06/21/16 08:52 06/21/16 08:52 06/21/16 08:52 06/21/16 08:52 Intake and Output: 06/21/16 06/21/16 06:59 18:59 Intake Total 470 850 Output Total 825 Balance -355 850 - Medications Medications: Current Medications Folic Acid (Folic Acid) 1 mg PO DAILY [facility] Last Admin: 06/21/16 09:28 Dose: 1 mg Trimethoprim/Sulfamethoxazole (240 mg/ Dextrose) 250 mls @ 167 mls/hr IVPB Q12H [facility] Last Admin: 06/21/16 12:28 Dose: 167 mls/hr Imipenem/Cilastatin Sodium 500 (mg/ Sodium Chloride) 100 mls @ 100 mls/hr IVPB Q8H [facility] Last Admin: 06/21/16 11:22 Dose: 100 mls/hr Methylprednisolone (Solu-Medrol) 40 mg IVP Q8 [facility] Last Admin: 06/21/16 13:39 Dose: 40 mg Nystatin (Nystatin Oral Susp) 5 ml PO QID [facility] Last Admin: 06/21/16 13:39 Dose: 5 ml - Labs Labs: 06/18/16 13:42 06/18/16 13:42 - Head Exam Head Exam: ATRAUMATIC, NORMOCEPHALIC - Eye Exam Eye Exam: Normal appearance - ENT Exam ENT Exam: Mucous Membranes Moist - Respiratory Exam Respiratory Exam: Clear to Ausculation Bilateral - Cardiovascular Exam Cardiovascular Exam: REGULAR RHYTHM - GI/Abdominal Exam GI & Abdominal Exam: Soft, Normal Bowel Sounds - Extremities Exam Extremities Exam: Normal Inspection Assessment and Plan (1) Dyspnea Assessment & Plan: continue antibiotics Condition much improved Followup chest x-ray Status: Acute (2) HIV antibody positive Status: Acute
--- NOTE | 2016-06-21 16:25 | CP.PCM.PN ---
Subjective - Date & Time of Evaluation Date of Evaluation: 06/21/16 Time of Evaluation: 11:00 - Subjective Subjective: Alert, orientedx3, no sob or chest pains, NAD. Objective - Vital Signs/Intake and Output Vital Signs (last 24 hours): Temp Pulse Resp BP Pulse Ox 98.3 F 75 20 111/67 95 06/21/16 08:52 06/21/16 08:52 06/21/16 08:52 06/21/16 08:52 06/21/16 08:52 Intake and Output: 06/21/16 06/21/16 06:59 18:59 Intake Total 470 850 Output Total 825 Balance -355 850 - Medications Medications: Current Medications Folic Acid (Folic Acid) 1 mg PO DAILY [facility] Last Admin: 06/21/16 09:28 Dose: 1 mg Trimethoprim/Sulfamethoxazole (240 mg/ Dextrose) 250 mls @ 167 mls/hr IVPB Q12H [facility] Last Admin: 06/21/16 12:28 Dose: 167 mls/hr Imipenem/Cilastatin Sodium 500 (mg/ Sodium Chloride) 100 mls @ 100 mls/hr IVPB Q8H [facility] Last Admin: 06/21/16 11:22 Dose: 100 mls/hr Methylprednisolone (Solu-Medrol) 40 mg IVP Q8 [facility] Last Admin: 06/21/16 13:39 Dose: 40 mg Nystatin (Nystatin Oral Susp) 5 ml PO QID [facility] Last Admin: 06/21/16 13:39 Dose: 5 ml - Labs Labs: 06/18/16 13:42 06/18/16 13:42 Assessment and Plan - Assessment and Plan (Free Text) Assessment: Patient is seen and examined. Alert and orientedx3, denies sob or chest pains. Oxygen saturation 97% on room air. Cleared by DR Tijerina, D/W DR Jiang and DR Fletcher, discharge plan for today on oral antibiotics as per DR Jiang. Advised to follow up in the office in 1 week.
--- NOTE | 2016-06-21 22:49 | CP.PCM.DIS ---
Provider - Provider Date of Admission: 06/13/16 09:54 Attending physician: Cezar Fletcher MD Time Spent in preparation of Discharge (in minutes): 30 Diagnosis - Discharge Diagnosis (1) Dyspnea Status: Acute (2) Interstitial pneumonia Status: Acute (3) Respiratory distress Status: Acute (4) HIV antibody positive Status: Acute Hospital Course - Lab Results Lab Results: Micro Results 06/14/16 08:00 Throat Group A Strep Throat Culture - Final NO BETA STREP GROUP A ISOLATED. 06/14/16 08:00 Naris MRSA Culture (Admit) - Final MRSA NOT DETECTED 06/14/16 08:00 Throat Fungal Culture - Preliminary Most Recent Lab Values WBC 8.2 K/uL (4.8-10.8) 06/18/16 13:42 RBC 4.49 Mil/uL (4.40-5.90) 06/18/16 13:42 Hgb 13.0 g/dL (12.0-18.0) 06/18/16 13:42 Hct 38.6 % (35.0-51.0) 06/18/16 13:42 MCV 86.0 fL (80.0-94.0) 06/18/16 13:42 MCH 29.0 pg (27.0-31.0) 06/18/16 13:42 MCHC 33.7 g/dL (33.0-37.0) 06/18/16 13:42 RDW 14.9 % (11.5-14.5) H 06/18/16 13:42 Plt Count 371 K/uL (130-400) 06/18/16 13:42 MPV 7.2 fL (7.2-11.7) 06/18/16 13:42 Neut % (Auto) 89.4 % (50.0-75.0) H 06/18/16 13:42 Lymph % (Auto) 7.5 % (20.0-40.0) L 06/18/16 13:42 [place] % (Auto) 2.9 % (0.0-10.0) 06/18/16 13:42 Eos % (Auto) 0.0 % (0.0-4.0) 06/18/16 13:42 Baso % (Auto) 0.2 % (0.0-2.0) 06/18/16 13:42 Neut # 7.4 K/uL (1.8-7.0) H 06/18/16 13:42 Lymph # 0.6 K/uL (1.0-4.3) L 06/18/16 13:42 [place] # 0.2 K/uL (0.0-0.8) 06/18/16 13:42 Eos # 0.0 K/uL (0.0-0.7) 06/18/16 13:42 Baso # 0.0 K/uL (0.0-0.2) 06/18/16 13:42 Neutrophils % (Manual) 93 % (50-75) H 06/18/16 13:42 Lymphocytes % (Manual) 5 % (20-40) L 06/18/16 13:42 Monocytes % (Manual) 2 % (0-10) 06/18/16 13:42 Platelet Estimate Normal (NORMAL) 06/18/16 13:42 RBC Morphology Normal 06/18/16 13:42 ESR 115 mm/hr (0-15) H 06/15/16 07:30 D-Dimer, Quantitative < 200 ng/mlDDU (0-243) 06/13/16 08:48 pO2 23 mm/Hg (30-55) L 06/13/16 08:55 VBG pH 7.40 (7.32-7.43) 06/13/16 08:55 VBG pCO2 38 mmHg (40-60) L 06/13/16 08:55 VBG HCO3 22.5 mmol/L 06/13/16 08:55 VBG Total CO2 24.7 mmol/L (22-28) 06/13/16 08:55 VBG O2 Sat (Calc) 39.6 % (40-65) L 06/13/16 08:55 VBG Base Excess -1.1 mmol/L (0.0-2.0) L 06/13/16 08:55 VBG Potassium 4.2 mmol/L (3.6-5.2) 06/13/16 08:55 Sodium 128.0 mmol/l (132-148) L 06/13/16 08:55 Chloride 100.0 mmol/L (98-107) 06/13/16 08:55 Glucose 96 mg/dl (75-110) 06/13/16 08:55 Lactate 2.1 mmol/L (0.7-2.1) 06/13/16 08:55 Sodium 134 mmol/L (132-148) 06/18/16 13:42 Potassium 4.5 mmol/L (3.6-5.2) 06/18/16 13:42 Chloride 105 mmol/L (98-107) 06/18/16 13:42 Carbon Dioxide 18 mmol/L (22-30) L 06/18/16 13:42 Anion Gap 16 (10-20) 06/18/16 13:42 BUN 14 mg/dL (9-20) 06/18/16 13:42 Creatinine 0.7 MG/DL (0.8-1.5) L 06/18/16 13:42 Est GFR ( Amer) > 60 06/18/16 13:42 Est GFR (Non-Af Amer) > 60 06/18/16 13:42 Random Glucose 165 mg/dL (75-110) H 06/18/16 13:42 Calcium 8.3 mg/dl (8.6-10.4) L 06/18/16 13:42 Total Bilirubin < 0.1 mg/dL (0.2-1.3) L 06/18/16 13:42 Direct Bilirubin 0.0 mg/dL (0.0-0.4) 06/18/16 13:42 AST 46 U/L (17-59) 06/18/16 13:42 ALT 50 U/L (21-72) 06/18/16 13:42 Alkaline Phosphatase 102 U/L (38-126) 06/18/16 13:42 Lactate Dehydrogenase 1083 U/L (313-618) H 06/19/16 07:16 Troponin I < 0.0120 ng/mL (0.00-0.120) 06/13/16 08:08 C-React Prot High Sens > 15.00 mg/L (1.00-3.00) H 06/15/16 07:30 NT-Pro-B Natriuret Pep 47.4 pg/mL (0-900) 06/13/16 08:08 Total Protein 7.2 g/dL (6.3-8.3) 06/18/16 13:42 Albumin 2.9 g/dL (3.5-5.0) L D 06/18/16 13:42 Globulin 4.3 gm/dL (2.2-3.9) H 06/18/16 13:42 Albumin/Globulin Ratio 0.7 (1.0-2.1) L 06/18/16 13:42 Venous Blood Potassium 4.2 mmol/L (3.6-5.2) 06/13/16 08:55 Absolute Lymphs (Flow) 597 Cells/mcL (850-3900) L 06/15/16 07:30 % CD4 Cells 6 Percent (30-61) L 06/15/16 07:30 Absolute CD4 Count 36 Cells/mcL (490-1740) L 06/15/16 07:30 T-Help/Suppress Ratio 0.09 Ratio (0.86-5.00) L 06/15/16 07:30 % CD8 Cells 69 Percent (12-42) H 06/15/16 07:30 Absolute CD8 Count 412 Cells/mcL (180-1170) 06/15/16 07:30 T-Lymph Analys Comment See note 06/15/16 07:30 RPR Nonreactive (NONREACTIVE) 06/15/16 07:30 Cryptococcus Ag Negative (NEGATIVE) 06/15/16 07:30 Hepatitis A IgM Ab Negative (NEGATIVE) 06/15/16 07:30 Hep Bs Antigen Negative (NEGATIVE) 06/15/16 07:30 Hep B Core IgM Ab Negative (NEGATIVE) 06/15/16 07:30 Hepatitis C Antibody Negative (NEGATIVE) 06/15/16 07:30 HIV-1 Antibody Positive (Negative) H 06/15/16 07:30 HIV-1 RNA copies/mL 188014 copies/mL (<20) H 06/15/16 07:30 HIV-1 RNA logcopies/mL 5.58 (<1.30) H 06/15/16 07:30 HIV-2 Antibody Negative (Negative) 06/15/16 07:30 HIV 1&2 Ag/Ab, 4th Gen Reactive (Nonreactive) H 06/15/16 07:30 HIV 1&2 Antibody Screen Reactive (NEGATIVE) H 06/13/16 10:34 Influenza Typ A,B (EIA) Negative for flu a/b (NEGATIVE) 06/13/16 07:40 Toxoplasma IgG Ab 2.72 (<0.91) H 06/15/16 07:30 Toxoplasma IgM Ab Negative (Negative) 06/15/16 07:30 - Hospital Course Hospital Course: Pt seen and examined, feels better, not short of breath, sitting comfortably in no acute distress Denies cough, denies fever chills discharge pt home with out patient follow up Discharge Exam - Head Exam Head Exam: ATRAUMATIC, NORMOCEPHALIC - Eye Exam Eye Exam: EOMI, Normal appearance, PERRL Pupil Exam: NORMAL ACCOMODATION, PERRL - ENT Exam ENT Exam: Mucous Membranes Dry - Respiratory Exam Respiratory Exam: Decreased Breath Sounds, Rales, Rhonchi - Cardiovascular Exam Cardiovascular Exam: +S1, +S2 - GI/Abdominal Exam GI & Abdominal Exam: Normal Bowel Sounds Discharge Plan - Discharge Medications Prescriptions: Nystatin [Nystatin Oral Susp] 5 ml PO QID #100 Azithromycin [Zithromax] 600 mg PO QD7 #8 tab - Follow Up Plan Condition: GUARDED Disposition: HOME/ ROUTINE Instructions: Hypoxia (GEN), Pneumonia (DC) Additional Instructions: Discharge home. Follow up with Dr. Fletcher in one week. Follow up with Dr. Jiang in one week. If symptoms return or worsen, seek medical attention. Referrals: Jimbo Tijerina MD [Staff Provider] - Brandyn Jiang MD [Staff Provider] - Cezar Fletcher MD [Staff Provider] -
--- NOTE | 2016-06-22 08:08 | CARD ---
APPROVED REPORT EXAM: Two-dimensional and M-mode echocardiogram with Doppler and color Doppler. Other Information Quality : GoodRhythm : NSR INDICATION Dyspnea Congestive Heart Failure SOB, HYPOXIA, PNEUMONIA M-Mode DIMENSIONS RVDd2.05 (2.1-3.2cm)Left Atrium (MM)3.75 (2.5-4.0cm) IVSd1.04 (0.7-1.1cm)Aortic Root2.81 (2.2-3.7cm) LVDd4.55 (4.0-5.6cm)Aortic Cusp Exc.1.80 (1.5-2.0cm) PWd0.87 (0.7-1.1cm)FS (%) 31 % LVDs3.12 (2.0-3.8cm)LVEF (%)59 (>50%) Aortic Valve AoV Peak Gjwhnvii420.9cm/Dylan Peak GR.13mmHg Mitral Valve MV E Fzrotvxe55.7cm/sMV A Jaohxvos67.7cm/sE/A ratio1.1 TDI E/Lateral E'0.0E/Medial E'0.0 Tricuspid Valve TR Peak [id number]/sTR Peak Gr.[id number] LEFT VENTRICLE The left ventricle is normal size. There is normal left ventricular wall thickness. The left ventricular function is normal. The left ventricular ejection fraction is within the normal range. The Ejection Fraction is >55%. No regional wall motion abnormalities noted. Tissue Doppler imaging reveals abnormal left ventricular diastolic dysfunction. No left ventricle thrombus noted on this study. There is no ventricular septal defect visualized. There is no left ventricular aneurysm. There is no mass noted in the left ventricle. RIGHT VENTRICLE The right ventricle is normal size. There is normal right ventricular wall thickness. The right ventricular systolic function is normal. ATRIA The left atrium size is normal. The right atrium size is normal. The interatrial septum is intact with no evidence for an atrial septal defect. AORTIC VALVE The aortic valve is normal in structure and function. No aortic regurgitation is present. There is no aortic valvular stenosis. There is no aortic valvular vegetation. MITRAL VALVE The mitral valve is normal in structure and function. There is no evidence of mitral valve prolapse. There is no mitral valve stenosis. There is no mitral valve regurgitation noted. TRICUSPID VALVE The tricuspid valve is normal in structure and function. There is trace to mild tricuspid regurgitation. There is no tricuspid valve prolapse or vegetation. There is no tricuspid valve stenosis. PULMONIC VALVE The pulmonary valve is normal in structure and function. There is no pulmonic valvular regurgitation. There is no pulmonic valvular stenosis. GREAT VESSELS The aortic root is normal in size. The ascending aorta is normal in size. The pulmonary artery is normal. The IVC is normal in size and collapses >50% with inspiration. PERICARDIAL EFFUSION The pericardium appears normal. There is no pleural effusion. <Conclusion> The left ventricle is normal size. The left ventricular function is normal. The Ejection Fraction is >55%. Tissue Doppler imaging reveals abnormal left ventricular diastolic dysfunction. The left atrium size is normal.
[2016-06-24 12:24] LABS: HLA-B*5701 Negative
[2016-06-29 16:29] LABS: HIV-1 GENOTYPE DETECTED
== END 2016-06-21 15:50 | disposition home or self-care (01) | DRG 975 ==
LOC: C.ER 07:09 → C.9E 09:54 → C.6T 20:57
PROVIDERS: ADMIT Internal Medicine; ATTEND Internal Medicine
DX: B20 Human immunodeficiency virus [HIV] disease (principal); B59 Pneumocystosis; J84.9 Interstitial pulmonary disease, unspecified; B37.0 Candidal stomatitis; G25.81 Restless legs syndrome; R09.02 Hypoxemia

== ENCOUNTER 2016-07-07 10:10 | Inpatient (IN) | payer BC ==
[2016-07-07 11:09] LABS: BASO % 0.2 % (0.0-2.0); HEMATOCRIT 40.5 % (35.0-51.0); LYMPH # 0.4 K/uL (1.0-4.3); LYMPH % 11.6 % (20.0-40.0); MEAN CORPUSCULAR HEMOGLOBIN 29.6 pg (27.0-31.0); MEAN CORPUSCULAR HGB CONC 34.1 g/dL (33.0-37.0); MEAN PLATELET VOLUME 7.4 fL (7.2-11.7); MONO # 0.3 K/uL (0.0-0.8); RED CELL DISTRIBUTION WIDTH 16.5 % (11.5-14.5)
[2016-07-07 11:11] LABS: ABG ALLEN TEST POS; ARTERIAL BLOOD HGB O2 SAT 94.9 % (95.0-98.0); CARBOXYHEMOGLOBIN 1.4 % (0.5-1.5); DRAW SITE LRA; HHB 2.5 % (0.0-5.0); METHEMOGLOBIN 1.3 % (0.0-3.0)
[2016-07-07 11:12] LABS: WHITE BLOOD COUNT 3.5 K/uL (4.8-10.8)
--- NOTE | 2016-07-07 11:21 | RAD ---
HISTORY: cp sob COMPARISON: 06/17/2016 FINDINGS: LUNGS: Opacities in the lower lung bilaterally improved compared to prior examination. PLEURA: No significant pleural effusion identified, no pneumothorax apparent. CARDIOVASCULAR: Normal. OSSEOUS STRUCTURES: No significant abnormalities. VISUALIZED UPPER ABDOMEN: Normal. OTHER FINDINGS: None. IMPRESSION: Diminishing bilateral pulmonary opacity, now limited to lung bases. Nonspecific.
[2016-07-07 11:24] LABS: CHLORIDE 98 mmol/L (98-107)
--- NOTE | 2016-07-07 11:24 | C.PDOC ---
History Of Present Illness 56-year-old male, presents to the emergency department with complaints of shortness of breath and chest pain that worsened this morning. Patient was admitted last month, and diagnosed with HIV, and suspected PCP pneumonia. Patient was discharged on ABX, and states he was feeling better until today, resulting in him coming to the ED for evaluation. Patient denies fevers or cough. Time Seen by Provider: 07/07/16 10:17 Chief Complaint (Nursing): Chest Pain History Per: Patient History/Exam Limitations: no limitations Onset/Duration Of Symptoms: Days Current Symptoms Are (Timing): Still Present Past Medical History Reviewed: Historical Data, Nursing Documentation, Vital Signs Vital Signs: Last Vital Signs Temp 98.1 F 07/08/16 23:45 Pulse 81 07/09/16 00:31 Resp 20 07/08/16 23:45 BP 121/72 07/08/16 23:45 Pulse Ox 96 07/08/16 23:45 - Medical History PMH: HIV (Recently diagnosed in 2017), Pneumonia Family History: States: No Known Family Hx - Social History Hx Alcohol Use: No Hx Substance Use: No - Immunization History Hx Influenza Vaccination: No Review Of Systems Constitutional: Negative for: Fever, Chills Cardiovascular: Positive for: Chest Pain Respiratory: Positive for: Shortness of Breath Gastrointestinal: Negative for: Vomiting Musculoskeletal: Negative for: Back Pain Skin: Negative for: Rash Neurological: Negative for: Weakness, Numbness, Headache, Dizziness Physical Exam - Physical Exam Appears: Non-toxic, No Acute Distress Skin: Warm, Dry, No Rash Head: Atraumatic Eye(s): bilateral: Normal Inspection Nose: Normal Oral Mucosa: Moist Neck: Normal ROM Cardiovascular: Rhythm Regular, No Murmur Respiratory: Normal Breath Sounds Gastrointestinal/Abdominal: Soft, No Tenderness Back: Normal Inspection Extremity: Normal ROM ED Course And Treatment - Laboratory Results Result Diagrams: 07/07/16 11:05 07/07/16 11:05 O2 Sat by Pulse Oximetry: 95 Medical Decision Making Medical Decision Making: EKG Rate 79bpm Rhytnm NSR Interpret Normal [place]. Normal intervals. No acute ischemia [address] [id number] rec solumedrol 40mg q12h and azithromycin. Disposition - Disposition Disposition: HOSPITALIZED Disposition Time: 11:38 Condition: STABLE - Clinical Impression Clinical Impression: Interstitial pneumonia, HIV antibody positive - Scribe Statement The provider has reviewed the documentation as recorded by the Scribe Mauro Simms All medical record entries made by the Scribe were at my direction and personally dictated by me. I have reviewed the chart and agree that the record accurately reflects my personal performance of the history, physical exam, medical decision making, and the department course for this patient. I have also personally directed, reviewed, and agree with the discharge instructions and disposition.
[2016-07-07 11:25] LABS: POTASSIUM 3.7 mmol/L (3.6-5.2); SODIUM 129 mmol/L (132-148)
[2016-07-07 11:27] LABS: ALB/GLOB RATIO 0.9 (1.0-2.1); ALKALINE PHOSPHATASE 166 U/L (38-126); AST/SGOT 24 U/L (17-59); BILIRUBIN,TOTAL 0.6 mg/dL (0.2-1.3); CARBON DIOXIDE 20 mmol/L (22-30); GFR AFRICAN-AMERICAN > 60
[2016-07-07 11:28] LABS: ALT/SGPT 37 U/L (21-72); BLOOD UREA NITROGEN 7 mg/dL (9-20); CALCIUM 7.5 mg/dl (8.6-10.4); GLUCOSE,RANDOM 87 mg/dL (75-110)
[2016-07-07] MEDS: Sulfamethoxazole/Trimethoprim 160 MG in Dextrose 5% In Water 250 ML IVPB SCH ×2 (12:23→22:33)
[2016-07-07] MEDS ORDERED: Azithromycin 500 MG in Sodium Chloride 0.9% 250 ML IVPB STA (13:12)
--- NOTE | 2016-07-07 13:47 | CP.PCM.CON ---
History of Present Illness - History of Present Illness History of Present Illness: INFECTIOUS DISEASE CONSULT; HPI; 56-year-old male well known to me from his recent hospitalization or 06/13/16 with recently diagnosed HIV positive with high viral load and low CD4 count less than 50 who was admitted for probable PCP pneumonia which improved on IV Bactrim and steroids. Patient was recently seen in the office for starting antiretroviral therapy and was placed on DOLTUGRAVIR 50 mg twice a day and EPZICOM 1 tablet once a day daily. Patient now presented to the ER with complaints of shortness of breath and chest pain that worsened this morning. Patient states he could not breathe and had to come to the ER for further evaluation. Chest x-ray on admission consistent with bilateral lower lung opacities. Also patient was hypoxemic with PO2 of 80, and oxygen saturation of 95%. Patient also admits of recent onset of diarrhea which is watery in consistency and states he had had many bowel movements. Patient denies any melena or hematochezia or abdominal pain. Patient denies any fever or chills but has not taken his temperature. Patient does admit to dry cough but no expectoration. PMH; HIV+VE (06/13/16 ),ORAL CANDIDIASIS, AND RECENT PNEUMONIA. SH:DENIES SMOKING OR DRINKING. DENIES SUBSTANCE ABUSE. FAMILY HISTORY; UNREMARKABLE. SURGICAL HISTORY; NO KNOWN SURGICAL HISTORY IMMUNIZATION; PATIENT GOT PNEUMOCOCCAL VACCINE. JUNE 2016. Review of Systems - Constitutional Constitutional: Lethargy, Weakness - EENT Eyes: absent: Change in Vision, Floaters Nose/Mouth/Throat: Mouth Lesions (ORAL THRUSH.). absent: Nasal Congestion, Dysphagia - Cardiovascular Cardiovascular: Chest Pain, Dyspnea, Rapid Heart Rate - Respiratory Respiratory: Cough, Dyspnea. absent: Hemoptysis - Gastrointestinal Gastrointestinal: Diarrhea (WAT[place] DIARRHEA.). absent: Abdominal Pain, Nausea, Vomiting - Genitourinary Genitourinary: absent: Dysuria, Hematuria - Integumentary Integumentary: absent: Rash - Neurological Neurological: absent: Dizziness - Hematologic/Lymphatic Hematologic: As Per HPI Past Patient History - Infectious Disease Hx of Infectious Diseases: None - Past Medical History & Family History Past Medical History?: Yes - Past Social History Smoking Status: Never Smoked - PULMONARY Hx Pneumonia: Yes - HEMATOLOGICAL/ONCOLOGICAL Hx Human Immunodeficiency Virus (HIV): Yes (Recently diagnosed in 2016) - MUSCULOSKELETAL/RHEUMATOLOGICAL Hx Falls: No Other/Comment: restless leg syndrome - PSYCHIATRIC Hx Substance Use: No - SURGICAL HISTORY Hx Surgeries: No - ANESTHESIA Hx Anesthesia: No Meds Allergies/Adverse Reactions: Allergies Allergy/AdvReac Type Severity Reaction Status Date / Time No Known Allergies Allergy Verified 07/07/16 10:15 - Medications Medications: Current Medications Trimethoprim/Sulfamethoxazole (160 mg/ Dextrose) 250 mls @ 250 mls/hr IVPB Q12H [facility] Last Admin: 07/07/16 12:23 Dose: 250 mls/hr Azithromycin 500 mg/ Sodium (Chloride) 250 mls @ 250 mls/hr IVPB STAT STA Stop: 07/07/16 14:11 Methylprednisolone (Solu-Medrol) 40 mg IVP Q12H [facility] Physical Exam - Constitutional Appears: No Acute Distress - Head Exam Head Exam: NORMAL INSPECTION - Eye Exam Eye Exam: EOMI, PERRL - ENT Exam Additional comments: ORAL THRUSH - Neck Exam Neck exam: Positive for: Normal Inspection. Negative for: Lymphadenopathy, Meningismus - Respiratory Exam Respiratory Exam: Prolonged Expiratory Phase, Rhonchi - Cardiovascular Exam Cardiovascular Exam: Tachycardia, REGULAR RHYTHM, +S1, +S2 - GI/Abdominal Exam GI & Abdominal Exam: Normal Bowel Sounds, Soft. absent: Organomegaly - Extremities Exam Extremities exam: Positive for: pedal pulses present. Negative for: calf tenderness, pedal edema - Neurological Exam Neurological exam: Alert, CN II-XII Intact, Oriented x3, Reflexes Normal - Psychiatric Exam Psychiatric exam: Normal Mood - Skin Skin Exam: Normal Color Results - Vital Signs Recent Vital Signs: Last Vital Signs Temp 98.0 F 07/07/16 10:19 Pulse 108 H 07/07/16 10:19 Resp 24 07/07/16 10:42 BP 137/77 07/07/16 10:19 Pulse Ox 95 07/07/16 13:09 - Labs Result Diagrams: 07/07/16 11:05 07/07/16 11:05 Assessment & Plan (1) Dyspnea Status: Acute (2) Bilateral pneumonia Status: Acute (3) HIV antibody positive Status: Acute (4) Oral candidiasis Status: Acute - Assessment and Plan (Free Text) Assessment: IMPRESSION; -BILATERAL PNEUMONIA WITH HYPOXEMIA. R/O ATYPICAL PNEUMONIA. -ORAL CANDIDIASIS. -HIV+VE NEWLY DIAGNOSED. -NEW ONSET OF DIARRHEA R/O INFECTIOUS VS C.DIFFICILE COLITIS. PLAN; PANCULTURES. DIARRHEA WORKUP STOOLS C. DIFFICILE TOXIN. ESR CRP. CONTINUE iv BACTRIM 240 MG IV PIGGYBACK EVERY 12 HOURLY 07/08/15 6. ADD iv MAXIPIME 1 G EVERY 12 HOURLY.07/07 NYSTATIN 5 Ml BY MOUTH 4 TIMES A DAY SWISH AND SWALLOW. CONTINUE DOLTEGRAVIR 50 MG BY MOUTH TWICE A DAY. CONTINUE EPZICOM 1 TABLET BY MOUTH ONCE A DAY DAILY. START IV SOLU-MEDROL 40 MG iv PIGGYBACK EVERY 12 HOURLY FOR NOW. CASE DISCUSSED WITH DR WINSTON ,ER PHYSICIAN /AND STAFF. WILL FOLLOW THE PATIENT AND MAKE ADJUSTMENTS NEEDED.
--- NOTE | 2016-07-07 13:52 | CP.PCM.HP ---
History of Present Illness - History of Present Illness History of Present Illness: Cheif complain: chest pain HPI: 56-year-old male, presents to the emergency department with complaints of shortness of breath and chest pain that worsened this morning. Patient was admitted last month, and diagnosed with HIV, and suspected PCP pneumonia. Patient was discharged on ABX, and states he was feeling better until today, resulting in him coming to the ED for evaluation. Patient denies fevers or cough. Present on Admission - Present on Admission Any Indicators Present on Admission: No Review of Systems - Review of Systems Systems not reviewed;Unavailable: Respiratory Distress - Constitutional Constitutional: Anorexia, Lethargy - EENT Nose/Mouth/Throat: Nasal Congestion, Nasal Discharge - Cardiovascular Cardiovascular: Chest Pain - Respiratory Respiratory: Cough, Chest Congestion - Gastrointestinal Gastrointestinal: absent: As Per HPI, Abdominal Pain, Belching, Bloating, Change in Bowel Habits, Change in Stool Character, Coffee Ground Emesis, Constipation, Cramping, Diarrhea, Dyspepsia, Dysphagia, Early Satiety, Excessive Flatus, Fecal Incontinence, Heartburn, Hematemesis, Hematochezia, Loose Stools, Melena, Nausea, Odynophagia, Temesmus, Vomiting, Other - Genitourinary Genitourinary: absent: As Per HPI, Change in Urinary Stream, Difficulty Urinating, Dysuria, Flank Pain, Hematuria, Pyuria, Nocturia, Urinary Incontinence, Urinary Frequency, Urinary Hesitance, Urinary Urgency, Voiding Freq/Small Amts, Freq UTI, Hx Renal/Bladder Calculi, Hx /Renal Surgery, Bladder Distension, Other - Neurological Neurological: absent: As Per HPI, Abnormal Gait, Abnormal Hearing, Abnormal Movements, Abnormal Speech, Behavioral Changes, Burning Sensations, Confusion, Convulsions, Disequilibrium, Dizziness, Numbness, Focal Weakness, Frequent Falls , Headaches, Lack of Coordination, Loss of Vision, Memory Loss, Paresthesias, Radicular Pain, Restless Legs, Sensory Deficit, Syncope, Tingling, Tremor, Vertigo, Weakness, Other Visual Disturbances, Other Past Patient History - Infectious Disease Hx of Infectious Diseases: None - Past Medical History & Family History Past Medical History?: Yes - Past Social History Smoking Status: Never Smoked - PULMONARY Hx Pneumonia: Yes - HEMATOLOGICAL/ONCOLOGICAL Hx Human Immunodeficiency Virus (HIV): Yes (Recently diagnosed in 2017) - MUSCULOSKELETAL/RHEUMATOLOGICAL Hx Falls: No Other/Comment: restless leg syndrome - PSYCHIATRIC Hx Substance Use: No - SURGICAL HISTORY Hx Surgeries: No - ANESTHESIA Hx Anesthesia: No Meds Home Medications: Home Medication List Medication Instructions Recorded Confirmed Type Abacavir Sulfate/Lamivudine 1 tab PO DAILY tab 07/09/16 Rx [Epzicom] Dolutegravir Sodium [Tivicay] 50 mg PO BID tab 07/09/16 Rx Sulfamethoxazole/Trimethoprim 1 each PO BID #60 tablet 07/09/16 Rx [Bactrim Ds Tablet] predniSONE [Prednisone] 30 mg PO DAILY #18 tab 07/09/16 Rx Allergies/Adverse Reactions: Allergies Allergy/AdvReac Type Severity Reaction Status Date / Time No Known Allergies Allergy Verified 07/07/16 10:15 Physical Exam - Constitutional Appears: No Acute Distress - Head Exam Head Exam: ATRAUMATIC, NORMAL INSPECTION, NORMOCEPHALIC - Eye Exam Eye Exam: EOMI, Normal appearance, PERRL Pupil Exam: NORMAL ACCOMODATION, PERRL - ENT Exam ENT Exam: Mucous Membranes Moist, Normal Exam - Respiratory Exam Respiratory Exam: Rhonchi, Respiratory Distress - Cardiovascular Exam Cardiovascular Exam: REGULAR RHYTHM, +S1, +S2 - GI/Abdominal Exam GI & Abdominal Exam: Normal Bowel Sounds, Soft. absent: Tenderness - Skin Skin Exam: Dry, Intact, Normal Color, Warm Results - Vital Signs Recent Vital Signs: Last Vital Signs Temp 98.0 F 07/07/16 10:19 Pulse 108 H 07/07/16 10:19 Resp 24 07/07/16 10:42 BP 137/77 07/07/16 10:19 Pulse Ox 95 07/07/16 13:09 - Labs Result Diagrams: 07/09/16 08:50 07/09/16 08:50 Assessment & Plan (1) PCP (pneumocystis carinii pneumonia) Status: Suspected (2) HIV antibody positive Status: Acute (3) Dyspnea Status: Acute (4) Chest pain Assessment and Plan: order troponins ekg Status: Ruled-out
[2016-07-07 14:13] VITALS: RESP 20
[2016-07-07] MEDS ORDERED: MethylPREDNISolone 40 mg Vial ONE (14:20)
[2016-07-07] MEDS ORDERED: Azithromycin 500mg/250ML NS 500 MG/250 ML BAG IVPB ONE (14:20)
[2016-07-07] MEDS ORDERED: guaiFENesin 200 mg/10 ml Syrup UD PO PRN (16:12)
--- NOTE | 2016-07-07 18:09 | CP.PCM.CON ---
History of Present Illness - History of Present Illness History of Present Illness: 56-year-old male, presents to the emergency department with complaints of shortness of breath and chest pain that worsened. Patient was admitted last month, and diagnosed with HIV, and suspected PCP pneumonia. Patient was discharged on ABX, and states he was feeling better until today, resulting in him coming to the ED for evaluation. Patient denies fevers or cough. Review of Systems - Review of Systems All systems: reviewed and no additional remarkable complaints except (sob) Past Patient History - Infectious Disease Hx of Infectious Diseases: None - Past Medical History & Family History Past Medical History?: Yes - Past Social History Smoking Status: Never Smoked - CARDIAC Hx Cardiac Disorders: No - PULMONARY Hx Pneumonia: Yes - NEUROLOGICAL Hx Neurological Disorder: No - HEENT Hx HEENT Problems: No - RENAL Hx Chronic Kidney Disease: No - ENDOCRINE/METABOLIC Hx Endocrine Disorders: No - HEMATOLOGICAL/ONCOLOGICAL Hx Human Immunodeficiency Virus (HIV): Yes (Recently diagnosed in 2017) - INTEGUMENTARY Hx Dermatological Problems: No - MUSCULOSKELETAL/RHEUMATOLOGICAL Hx Falls: No Other/Comment: restless leg syndrome - GASTROINTESTINAL Hx Gastrointestinal Disorders: No - GENITOURINARY/GYNECOLOGICAL Hx Genitourinary Disorders: No - PSYCHIATRIC Hx Substance Use: No - SURGICAL HISTORY Hx Surgeries: No - ANESTHESIA Hx Anesthesia: No Meds Home Medications: Home Medication List Medication Instructions Recorded Confirmed Type Abacavir Sulfate/Lamivudine 1 tab PO DAILY tab 07/09/16 Rx [Epzicom] Dolutegravir Sodium [Tivicay] 50 mg PO BID tab 07/09/16 Rx Sulfamethoxazole/Trimethoprim 1 each PO BID #60 tablet 07/09/16 Rx [Bactrim Ds Tablet] predniSONE [Prednisone] 30 mg PO DAILY #18 tab 07/09/16 Rx Allergies/Adverse Reactions: Allergies Allergy/AdvReac Type Severity Reaction Status Date / Time No Known Allergies Allergy Verified 07/07/16 10:15 - Medications Medications: Current Medications Abacavir/Lamivudine (Epzicom) 1 tab PO DAILY [facility] Acetaminophen (Tylenol 325mg Tab) 650 mg PO Q6 PRN PRN Reason: Pain, moderate (4-7) Dolutegravir Sodium (Tivicay) 50 mg PO BID [facility] Guaifenesin (Robitussin) 200 mg PO Q4H PRN PRN Reason: Cough and congestion Trimethoprim/Sulfamethoxazole (160 mg/ Dextrose) 250 mls @ 250 mls/hr IVPB Q12H [facility] Last Admin: 07/07/16 12:23 Dose: 250 mls/hr Cefepime HCl 1 gm/ Dextrose 50 mls @ 100 mls/hr IVPB Q12H [facility] Methylprednisolone (Solu-Medrol) 40 mg IVP Q12H [facility] Last Admin: 07/07/16 14:23 Dose: 40 mg Physical Exam - Head Exam Head Exam: ATRAUMATIC, NORMOCEPHALIC - Eye Exam Eye Exam: Normal appearance - ENT Exam ENT Exam: Mucous Membranes Moist - Neck Exam Neck exam: Positive for: Normal Inspection - Respiratory Exam Respiratory Exam: Rales, Rhonchi - Cardiovascular Exam Cardiovascular Exam: Tachycardia, REGULAR RHYTHM - GI/Abdominal Exam GI & Abdominal Exam: Normal Bowel Sounds, Soft Results - Vital Signs Recent Vital Signs: Last Vital Signs Temp 97.5 F L 07/07/16 16:45 Pulse 60 07/07/16 16:45 Resp 20 07/07/16 16:45 BP 98/56 L 07/07/16 16:45 Pulse Ox 97 07/07/16 16:45 - Labs Result Diagrams: 07/09/16 08:50 07/09/16 08:50 Labs: Laboratory Results - last 24 hr 07/07/16 14:24 Stool Occult Blood Negative Assessment & Plan (1) Interstitial pneumonia Status: Acute (2) Respiratory distress Status: Acute
[2016-07-07] MEDS: MethylPREDNISolone 40 mg Vial IVP SCH (20:39)
[2016-07-08] MEDS: MethylPREDNISolone 40 mg Vial IVP SCH ×2 (06:06→17:31)
[2016-07-08 06:43] LABS: CHOLESTEROL 187 mg/dL (0-199)
[2016-07-08] MEDS: Enoxaparin 40 mg Syringe SC SCH (09:30)
[2016-07-08] MEDS: Abacavir/Lamivudine 600 mg-300 mg Tab PO SCH (09:31)
[2016-07-08] MEDS: Sulfamethoxazole/Trimethoprim 160 MG in Dextrose 5% In Water 250 ML IVPB SCH ×2 (09:32→21:46)
--- NOTE | 2016-07-08 16:20 | CP.PCM.PN ---
Subjective - Date & Time of Evaluation Date of Evaluation: 07/08/16 Time of Evaluation: 09:30 - Subjective Subjective: patient seen and examined. Patient states breathing and cough much improved Denies fever chills, denies chest Objective - Vital Signs/Intake and Output Vital Signs (last 24 hours): Temp Pulse Resp BP Pulse Ox 97.9 F 94 H 20 117/76 96 07/08/16 07:30 07/08/16 15:20 07/08/16 07:30 07/08/16 07:30 07/08/16 07:30 Intake and Output: 07/08/16 07/08/16 06:59 18:59 Intake Total 290 Output Total 700 Balance -700 290 - Medications Medications: Current Medications Abacavir/Lamivudine (Epzicom) 1 tab PO DAILY [facility] Last Admin: 07/08/16 09:31 Dose: 1 tab Acetaminophen (Tylenol 325mg Tab) 650 mg PO Q6 PRN PRN Reason: Pain, moderate (4-7) Dolutegravir Sodium (Tivicay) 50 mg PO BID [facility] Last Admin: 07/08/16 09:30 Dose: 50 mg Enoxaparin Sodium (Lovenox) 40 mg SC DAILY [facility] Last Admin: 07/08/16 09:30 Dose: 40 mg Guaifenesin (Robitussin) 200 mg PO Q4H PRN PRN Reason: Cough and congestion Trimethoprim/Sulfamethoxazole (160 mg/ Dextrose) 250 mls @ 250 mls/hr IVPB Q12H [facility] Last Admin: 07/08/16 09:32 Dose: 250 mls/hr Cefepime HCl 1 gm/ Dextrose 50 mls @ 100 mls/hr IVPB Q12H [facility] Last Admin: 07/08/16 06:06 Dose: 100 mls/hr Methylprednisolone (Solu-Medrol) 40 mg IVP Q12H [facility] Last Admin: 07/08/16 06:06 Dose: 40 mg Pantoprazole Sodium (Protonix Inj) 40 mg IVP DAILY [facility] Last Admin: 07/08/16 09:30 Dose: 40 mg - Constitutional Appears: No Acute Distress - Head Exam Head Exam: ATRAUMATIC, NORMOCEPHALIC - Eye Exam Eye Exam: Normal appearance - ENT Exam ENT Exam: Mucous Membranes Moist - Neck Exam Neck Exam: Normal Inspection - Respiratory Exam Respiratory Exam: Rales - Cardiovascular Exam Cardiovascular Exam: REGULAR RHYTHM - GI/Abdominal Exam GI & Abdominal Exam: Soft, Normal Bowel Sounds - Extremities Exam Extremities Exam: Normal Inspection - Neurological Exam Neurological Exam: Alert, Oriented x3 Assessment and Plan (1) Bilateral pneumonia Assessment & Plan: Continue antibiotics per infectious Followup culture and sensitivity Status: Acute (2) Dyspnea Status: Acute
--- NOTE | 2016-07-08 16:29 | CP.PCM.PN ---
Subjective - Date & Time of Evaluation Date of Evaluation: 07/08/16 Time of Evaluation: 16:29 - Subjective Subjective: AFEBRILE FEELING BETTER LESS SOB. DIARRHOEA SLIGHTLY BETTER. SEEN BY PULMONARY. LAB: STOOLS C. DIFFICILE TOXIN -VE ESR-102 CRP. HIGH LDH N. Objective - Vital Signs/Intake and Output Vital Signs (last 24 hours): Temp Pulse Resp BP Pulse Ox 97.9 F 94 H 20 117/76 96 07/08/16 07:30 07/08/16 15:20 07/08/16 07:30 07/08/16 07:30 07/08/16 07:30 Intake and Output: 07/08/16 07/08/16 06:59 18:59 Intake Total 290 Output Total 700 Balance -700 290 - Medications Medications: Current Medications Abacavir/Lamivudine (Epzicom) 1 tab PO DAILY [facility] Last Admin: 07/08/16 09:31 Dose: 1 tab Acetaminophen (Tylenol 325mg Tab) 650 mg PO Q6 PRN PRN Reason: Pain, moderate (4-7) Dolutegravir Sodium (Tivicay) 50 mg PO BID [facility] Last Admin: 07/08/16 09:30 Dose: 50 mg Enoxaparin Sodium (Lovenox) 40 mg SC DAILY [facility] Last Admin: 07/08/16 09:30 Dose: 40 mg Guaifenesin (Robitussin) 200 mg PO Q4H PRN PRN Reason: Cough and congestion Trimethoprim/Sulfamethoxazole (160 mg/ Dextrose) 250 mls @ 250 mls/hr IVPB Q12H [facility] Last Admin: 07/08/16 09:32 Dose: 250 mls/hr Cefepime HCl 1 gm/ Dextrose 50 mls @ 100 mls/hr IVPB Q12H [facility] Last Admin: 07/08/16 06:06 Dose: 100 mls/hr Methylprednisolone (Solu-Medrol) 40 mg IVP Q12H [facility] Last Admin: 07/08/16 06:06 Dose: 40 mg Pantoprazole Sodium (Protonix Inj) 40 mg IVP DAILY [facility] Last Admin: 07/08/16 09:30 Dose: 40 mg - Constitutional Appears: No Acute Distress - Head Exam Head Exam: NORMAL INSPECTION - Eye Exam Eye Exam: EOMI, PERRL - ENT Exam ENT Exam: Mucous Membranes Moist, Normal Oropharynx (+VE ORAL THRUSH.) - Neck Exam Neck Exam: Normal Inspection - Cardiovascular Exam Cardiovascular Exam: REGULAR RHYTHM, +S1, +S2 - GI/Abdominal Exam GI & Abdominal Exam: Soft, Normal Bowel Sounds. absent: Tenderness, Organomegaly - Extremities Exam Extremities Exam: Full ROM, Normal Capillary Refill. absent: Calf Tenderness, Pedal Edema - Neurological Exam Neurological Exam: Alert, Awake, CN II-XII Intact, Normal Gait, Oriented x3, Reflexes Normal - Psychiatric Exam Psychiatric exam: Normal Mood - Skin Skin Exam: Normal Color, Warm Assessment and Plan (1) Dyspnea Status: Acute (2) Bilateral pneumonia Status: Acute (3) HIV antibody positive Status: Acute (4) Oral candidiasis Status: Acute - Assessment and Plan (Free Text) Assessment: IMPRESSION; -BILATERAL PNEUMONIA WITH HYPOXEMIA. R/O ATYPICAL PNEUMONIA. -ORAL CANDIDIASIS. -HIV+VE NEWLY DIAGNOSED. -NEW ONSET OF DIARRHEA R/O INFECTIOUS VS C.DIFFICILE COLITIS. PLAN; DIARRHEA WORKUP-P CONTINUE iv BACTRIM 240 MG IV PIGGYBACK EVERY 12 HOURLY 07/08/15. ON iv MAXIPIME 1 G EVERY 12 HOURLY.07/07/16 NYSTATIN 5 Ml BY MOUTH 4 TIMES A DAY SWISH AND SWALLOW. CONTINUE DOLTEGRAVIR 50 MG BY MOUTH TWICE A DAY. CONTINUE EPZICOM 1 TABLET BY MOUTH ONCE A DAY DAILY. F/U HIV I-RNA QUANTITATIVE LEVELS LYMPHOCYTES SUB SET STUDIES. ON IV SOLU-MEDROL 40 MG iv PIGGYBACK EVERY 12 HOURLY. PULMONARY TOILET.
--- NOTE | 2016-07-08 22:50 | CP.PCM.PN ---
Subjective - Date & Time of Evaluation Date of Evaluation: 07/08/16 Time of Evaluation: 09:41 - Subjective Subjective: Pt seen and examined, less short of breath, he is on HAART, also seen by pulmonary, cough and congestion still there Objective - Vital Signs/Intake and Output Vital Signs (last 24 hours): Temp Pulse Resp BP Pulse Ox 98.1 F 94 H 20 121/76 95 07/08/16 15:16 07/08/16 15:20 07/08/16 15:16 07/08/16 15:16 07/08/16 15:16 Intake and Output: 07/08/16 07/09/16 18:59 06:59 Intake Total 290 Balance 290 - Medications Medications: Current Medications Abacavir/Lamivudine (Epzicom) 1 tab PO DAILY [facility] Last Admin: 07/08/16 09:31 Dose: 1 tab Acetaminophen (Tylenol 325mg Tab) 650 mg PO Q6 PRN PRN Reason: Pain, moderate (4-7) Dolutegravir Sodium (Tivicay) 50 mg PO BID [facility] Last Admin: 07/08/16 17:25 Dose: 50 mg Enoxaparin Sodium (Lovenox) 40 mg SC DAILY [facility] Last Admin: 07/08/16 09:30 Dose: 40 mg Guaifenesin (Robitussin) 200 mg PO Q4H PRN PRN Reason: Cough and congestion Trimethoprim/Sulfamethoxazole (160 mg/ Dextrose) 250 mls @ 250 mls/hr IVPB Q12H [facility] Last Admin: 07/08/16 21:46 Dose: 250 mls/hr Cefepime HCl 1 gm/ Dextrose 50 mls @ 100 mls/hr IVPB Q12H [facility] Last Admin: 07/08/16 18:59 Dose: 100 mls/hr Methylprednisolone (Solu-Medrol) 40 mg IVP Q12H [facility] Last Admin: 07/08/16 17:31 Dose: 40 mg Pantoprazole Sodium (Protonix Inj) 40 mg IVP DAILY [facility] Last Admin: 07/08/16 09:30 Dose: 40 mg - Constitutional Appears: No Acute Distress - Head Exam Head Exam: ATRAUMATIC, NORMAL INSPECTION, NORMOCEPHALIC - Eye Exam Eye Exam: EOMI, Normal appearance, PERRL Pupil Exam: NORMAL ACCOMODATION, PERRL - Respiratory Exam Respiratory Exam: Decreased Breath Sounds, Rhonchi, Wheezes - Cardiovascular Exam Cardiovascular Exam: REGULAR RHYTHM, +S1, +S2. absent: Murmur - GI/Abdominal Exam GI & Abdominal Exam: Soft, Normal Bowel Sounds. absent: Tenderness - Neurological Exam Neurological Exam: Alert, Awake, CN II-XII Intact, Normal Gait, Oriented x3 Assessment and Plan (1) PCP (pneumocystis carinii pneumonia) Status: Suspected (2) HIV antibody positive Status: Acute (3) Dyspnea Status: Acute (4) Chest pain Status: Ruled-out - Assessment and Plan (Free Text) Plan: continue antibiotics ID eval EKG and cardiac enzymes x 3 neg
--- NOTE | 2016-07-08 23:04 | CARD ---
APPROVED REPORT EKG Measurement Heart [id number] <Conclusion> Normal sinus rhythm Normal ECG
[2016-07-09] MEDS: MethylPREDNISolone 40 mg Vial IVP SCH (06:04)
[2016-07-09 08:00] VITALS: O2SAT 95
[2016-07-09 08:46] VITALS: BP 132/79; PULSE 80; TEMP 98.2
[2016-07-09 08:57] LABS: BASO % 0.1 % (0.0-2.0); HEMATOCRIT 39.2 % (35.0-51.0); LYMPH # 0.2 K/uL (1.0-4.3); MEAN CELL VOLUME 86.5 fL (80.0-94.0); MEAN CORPUSCULAR HEMOGLOBIN 29.3 pg (27.0-31.0); MEAN CORPUSCULAR HGB CONC 33.9 g/dL (33.0-37.0); MEAN PLATELET VOLUME 7.2 fL (7.2-11.7); MONO # 0.2 K/uL (0.0-0.8); MONO % 4.8 % (0.0-10.0); RED CELL DISTRIBUTION WIDTH 16.7 % (11.5-14.5); WHITE BLOOD COUNT 4.9 K/uL (4.8-10.8)
[2016-07-09 08:59] LABS: PLATELET COUNT 369 K/uL (130-400)
[2016-07-09 09:05] LABS: CHLORIDE 101 mmol/L (98-107); POTASSIUM 3.8 mmol/L (3.6-5.2); SODIUM 131 mmol/L (132-148)
[2016-07-09 09:08] LABS: BLOOD UREA NITROGEN 16 mg/dL (9-20); CARBON DIOXIDE 18 mmol/L (22-30); GFR AFRICAN-AMERICAN > 60; GLUCOSE,RANDOM 116 mg/dL (75-110)
[2016-07-09 09:09] LABS: CALCIUM 7.9 mg/dl (8.6-10.4)
[2016-07-09] MEDS: Sulfamethoxazole/Trimethoprim 160 MG in Dextrose 5% In Water 250 ML IVPB SCH (09:45)
[2016-07-09] MEDS: Enoxaparin 40 mg Syringe SC SCH (09:46)
[2016-07-09 09:47] LABS: NEUTROPHIL 83 % (50-75); REACTIVE LYMPHOCYTES 1 % (0-0); TOTAL CELLS COUNTED 100
[2016-07-09] MEDS: Abacavir/Lamivudine 600 mg-300 mg Tab PO SCH (09:47)
[2016-07-09 11:36] LABS: % CD3 (MATURE T CELL) 82 Percent (57-85)
--- NOTE | 2016-07-09 12:47 | CP.PCM.PN ---
Subjective - Date & Time of Evaluation Date of Evaluation: 07/09/16 Time of Evaluation: 08:00 - Subjective Subjective: Patient seen and examined. Patient conditi much improved Denies shortness of breath or cough Objective - Vital Signs/Intake and Output Vital Signs (last 24 hours): Temp Pulse Resp BP Pulse Ox 98.2 F 80 20 132/79 95 07/09/16 08:45 07/09/16 08:45 07/09/16 08:45 07/09/16 08:45 07/09/16 08:45 Intake and Output: 07/09/16 07/09/16 06:59 18:59 Intake Total 300 Balance 300 - Medications Medications: Current Medications Abacavir/Lamivudine (Epzicom) 1 tab PO DAILY REPLACED BY [facility] Last Admin: 07/09/16 09:47 Dose: 1 tab Acetaminophen (Tylenol 325mg Tab) 650 mg PO Q6 PRN PRN Reason: Pain, moderate (4-7) Dolutegravir Sodium (Tivicay) 50 mg PO BID REPLACED BY [facility] Last Admin: 07/09/16 09:47 Dose: 50 mg Enoxaparin Sodium (Lovenox) 40 mg SC DAILY REPLACED BY [facility] Last Admin: 07/09/16 09:46 Dose: 40 mg Guaifenesin (Robitussin) 200 mg PO Q4H PRN PRN Reason: Cough and congestion Trimethoprim/Sulfamethoxazole (160 mg/ Dextrose) 250 mls @ 250 mls/hr IVPB Q12H REPLACED BY [facility] Last Admin: 07/09/16 09:45 Dose: 250 mls/hr Cefepime HCl 1 gm/ Dextrose 50 mls @ 100 mls/hr IVPB Q12H REPLACED BY [facility] Last Admin: 07/09/16 06:03 Dose: 100 mls/hr Methylprednisolone (Solu-Medrol) 40 mg IVP Q12H REPLACED BY [facility] Last Admin: 07/09/16 06:04 Dose: 40 mg Pantoprazole Sodium (Protonix Inj) 40 mg IVP DAILY REPLACED BY [facility] Last Admin: 07/09/16 09:46 Dose: 40 mg - Labs Labs: 07/09/16 08:50 07/09/16 08:50 - Constitutional Appears: No Acute Distress - Head Exam Head Exam: ATRAUMATIC, NORMOCEPHALIC - Eye Exam Eye Exam: Normal appearance - ENT Exam ENT Exam: Mucous Membranes Moist - Neck Exam Neck Exam: Normal Inspection - Respiratory Exam Respiratory Exam: Clear to Ausculation Bilateral - Cardiovascular Exam Cardiovascular Exam: REGULAR RHYTHM - GI/Abdominal Exam GI & Abdominal Exam: Soft, Normal Bowel Sounds Assessment and Plan (1) Bilateral pneumonia Assessment & Plan: continue antibiotics as per infectious disease Status: Acute (2) Dyspnea Assessment & Plan: consider echocardiogram if not done before Status: Acute
--- NOTE | 2016-07-09 13:33 | CP.PCM.PN ---
Subjective - Date & Time of Evaluation Date of Evaluation: 07/09/16 Time of Evaluation: 13:33 - Subjective Subjective: feeling better. denies SOB. DIARRHOEA IMPROVED C. DIFFICILE -VE ANXIOUS TO GO HOME Objective - Vital Signs/Intake and Output Vital Signs (last 24 hours): Temp Pulse Resp BP Pulse Ox 98.2 F 80 20 132/79 95 07/09/16 08:45 07/09/16 08:45 07/09/16 08:45 07/09/16 08:45 07/09/16 08:45 Intake and Output: 07/09/16 07/09/16 06:59 18:59 Intake Total 300 Balance 300 - Medications Medications: Current Medications Abacavir/Lamivudine (Epzicom) 1 tab PO DAILY [facility] Last Admin: 07/09/16 09:47 Dose: 1 tab Acetaminophen (Tylenol 325mg Tab) 650 mg PO Q6 PRN PRN Reason: Pain, moderate (4-7) Dolutegravir Sodium (Tivicay) 50 mg PO BID [facility] Last Admin: 07/09/16 09:47 Dose: 50 mg Enoxaparin Sodium (Lovenox) 40 mg SC DAILY [facility] Last Admin: 07/09/16 09:46 Dose: 40 mg Guaifenesin (Robitussin) 200 mg PO Q4H PRN PRN Reason: Cough and congestion Trimethoprim/Sulfamethoxazole (160 mg/ Dextrose) 250 mls @ 250 mls/hr IVPB Q12H [facility] Last Admin: 07/09/16 09:45 Dose: 250 mls/hr Cefepime HCl 1 gm/ Dextrose 50 mls @ 100 mls/hr IVPB Q12H [facility] Last Admin: 07/09/16 06:03 Dose: 100 mls/hr Methylprednisolone (Solu-Medrol) 40 mg IVP Q12H [facility] Last Admin: 07/09/16 06:04 Dose: 40 mg Pantoprazole Sodium (Protonix Inj) 40 mg IVP DAILY [facility] Last Admin: 07/09/16 09:46 Dose: 40 mg - Labs Labs: 07/09/16 08:50 07/09/16 08:50 - Constitutional Appears: No Acute Distress - Head Exam Head Exam: NORMAL INSPECTION - Eye Exam Eye Exam: EOMI, PERRL - ENT Exam ENT Exam: Mucous Membranes Moist (ORAL CANDIDIASIS.) - Neck Exam Neck Exam: Normal Inspection - Respiratory Exam Respiratory Exam: Clear to Ausculation Bilateral, Rhonchi (OCCASIONAL RHONCHI), NORMAL BREATHING PATTERN - Cardiovascular Exam Cardiovascular Exam: REGULAR RHYTHM, +S1, +S2 - GI/Abdominal Exam GI & Abdominal Exam: Soft, Normal Bowel Sounds - Neurological Exam Neurological Exam: Awake, CN II-XII Intact, Normal Gait, Oriented x3, Reflexes Normal - Psychiatric Exam Psychiatric exam: Normal Mood - Skin Skin Exam: Normal Color, Warm Assessment and Plan (1) Dyspnea Status: Acute (2) Bilateral pneumonia Status: Acute (3) HIV antibody positive Status: Acute (4) Oral candidiasis Status: Acute - Assessment and Plan (Free Text) Assessment: IMPRESSION; -BILATERAL PNEUMONIA WITH HYPOXEMIA. PROBABLE PCP -ORAL CANDIDIASIS. -HIV+VE NEWLY DIAGNOSED. -NEW ONSET OF DIARRHEA R/O INFECTIOUS VS C.DIFFICILE COLITIS. PLAN; DIARRHEA WORKUP -NOTED DC iv BACTRIM 240 MG IV PIGGYBACK EVERY 12 HOURLY 07/08/15. DC iv MAXIPIME 1 G EVERY 12 HOURLY.07/07/16 PO BACTRIM 1DS PO BID X 10DAYS F/U 1DS BACTRIM PO MWF ZITHROMAX 600MG (2TABS WITH FOOD )ONCE WEEKLY ON TUESDAY NYSTATIN 5 Ml BY MOUTH 4 TIMES A DAY SWISH AND SWALLOW. PO PREDNISONE IN TAPERING DOSES PER PULMONARY. CONTINUE DOLTEGRAVIR 50 MG BY MOUTH TWICE A DAY. CONTINUE EPZICOM 1 TABLET BY MOUTH ONCE A DAY DAILY. F/U HIV I-RNA QUANTITATIVE LEVELS LYMPHOCYTES SUB SET STUDIES. CASE DISCUSSED WITH STAFF/FREIGHT INSPECTOR.
--- NOTE | 2016-07-09 15:02 | CP.PCM.PN ---
Subjective - Date & Time of Evaluation Date of Evaluation: 07/09/16 Time of Evaluation: 12:30 - Subjective Subjective: Pt seen an d examined today, states feels much better, sob an d cough improved , denies any chest pain dizziness, N/V/D , states wants to go home spo2 95% RA Objective - Vital Signs/Intake and Output Vital Signs (last 24 hours): Temp Pulse Resp BP Pulse Ox 98.2 F 80 20 132/79 95 07/09/16 08:45 07/09/16 08:45 07/09/16 08:45 07/09/16 08:45 07/09/16 08:45 Intake and Output: 07/09/16 07/09/16 06:59 18:59 Intake Total 300 Balance 300 - Medications Medications: Current Medications Abacavir/Lamivudine (Epzicom) 1 tab PO DAILY [facility] Last Admin: 07/09/16 09:47 Dose: 1 tab Acetaminophen (Tylenol 325mg Tab) 650 mg PO Q6 PRN PRN Reason: Pain, moderate (4-7) Dolutegravir Sodium (Tivicay) 50 mg PO BID [facility] Last Admin: 07/09/16 09:47 Dose: 50 mg Enoxaparin Sodium (Lovenox) 40 mg SC DAILY [facility] Last Admin: 07/09/16 09:46 Dose: 40 mg Guaifenesin (Robitussin) 200 mg PO Q4H PRN PRN Reason: Cough and congestion Trimethoprim/Sulfamethoxazole (160 mg/ Dextrose) 250 mls @ 250 mls/hr IVPB Q12H [facility] Last Admin: 07/09/16 09:45 Dose: 250 mls/hr Cefepime HCl 1 gm/ Dextrose 50 mls @ 100 mls/hr IVPB Q12H [facility] Last Admin: 07/09/16 06:03 Dose: 100 mls/hr Methylprednisolone (Solu-Medrol) 40 mg IVP Q12H [facility] Last Admin: 07/09/16 06:04 Dose: 40 mg Pantoprazole Sodium (Protonix Inj) 40 mg IVP DAILY [facility] Last Admin: 07/09/16 09:46 Dose: 40 mg - Labs Labs: 07/09/16 08:50 07/09/16 08:50 Assessment and Plan - Assessment and Plan (Free Text) Assessment: A/P 56 yr old male admitted for sob, ana maria Pneumonia clinically improved with IV antibiotics D/W Dr. Tijerina , cleared for discharge from pulmonary stand point and f/u office in 1 month D/W Dr. Fletcher, stable for discharge home today D/W DR. Jiang, cleared for discharge home today and continue MESSINA , and bactrim and prednisone and f/u with Dr Jiang office on Tuesday Discharge plan discussed with patient who understands and agree with plan Pt instructed to returns to ED if symptoms returns
--- NOTE | 2016-07-09 22:52 | CP.PCM.DIS ---
Provider - Provider Date of Admission: 07/07/16 11:38 Attending physician: Cezar Fletcher MD Time Spent in preparation of Discharge (in minutes): 30 Diagnosis - Discharge Diagnosis (1) PCP (pneumocystis carinii pneumonia) Status: Suspected (2) HIV antibody positive Status: Acute (3) Dyspnea Status: Acute (4) Chest pain Status: Ruled-out Hospital Course - Lab Results Lab Results: Micro Results 07/07/16 20:04 Stool Stool Culture - Final NO SALMONELLA, SHIGELLA OR CAMPYLOBACTER ISOLATED. Most Recent Lab Values WBC 4.9 K/uL (4.8-10.8) 07/09/16 08:50 RBC 4.53 Mil/uL (4.40-5.90) 07/09/16 08:50 Hgb 13.3 g/dL (12.0-18.0) 07/09/16 08:50 Hct 39.2 % (35.0-51.0) 07/09/16 08:50 MCV 86.5 fL (80.0-94.0) 07/09/16 08:50 MCH 29.3 pg (27.0-31.0) 07/09/16 08:50 MCHC 33.9 g/dL (33.0-37.0) 07/09/16 08:50 RDW 16.7 % (11.5-14.5) H 07/09/16 08:50 Plt Count 369 K/uL (130-400) D 07/09/16 08:50 MPV 7.2 fL (7.2-11.7) 07/09/16 08:50 Neut % (Auto) 91.1 % (50.0-75.0) H 07/09/16 08:50 Lymph % (Auto) 4.0 % (20.0-40.0) L 07/09/16 08:50 [place] % (Auto) 4.8 % (0.0-10.0) 07/09/16 08:50 Eos % (Auto) 0.0 % (0.0-4.0) 07/09/16 08:50 Baso % (Auto) 0.1 % (0.0-2.0) 07/09/16 08:50 Neut # 4.4 K/uL (1.8-7.0) 07/09/16 08:50 Lymph # 0.2 K/uL (1.0-4.3) L 07/09/16 08:50 [place] # 0.2 K/uL (0.0-0.8) 07/09/16 08:50 Eos # 0.0 K/uL (0.0-0.7) 07/09/16 08:50 Baso # 0.0 K/uL (0.0-0.2) 07/09/16 08:50 Neutrophils % (Manual) 83 % (50-75) H 07/09/16 08:50 Band Neutrophils % 5 % (0-2) H 07/09/16 08:50 Lymphocytes % (Manual) 5 % (20-40) L 07/09/16 08:50 Reactive Lymphs % 1 % (0-0) H 07/09/16 08:50 Monocytes % (Manual) 6 % (0-10) 07/09/16 08:50 Platelet Estimate Normal (NORMAL) 07/09/16 08:50 Anisocytosis (manual) Slight 07/09/16 08:50 ESR 102 mm/hr (0-15) H 07/08/16 06:14 Puncture Site Lra 07/07/16 11:06 pCO2 23 mm/Hg (35-45) L 07/07/16 11:06 pO2 80 mm/Hg (80-100) 07/07/16 11:06 HCO3 20.6 mmol/L (21-28) L 07/07/16 11:06 ABG pH 7.46 (7.35-7.45) H 07/07/16 11:06 ABG Total CO2 17.1 mmol/L (22-28) L 07/07/16 11:06 ABG O2 Saturation 97.4 % (95-98) 07/07/16 11:06 ABG Base Excess -5.4 mmol/L (-2.0-3.0) L 07/07/16 11:06 ABG Hemoglobin 13.9 g/dL (11.7-17.4) 07/07/16 11:06 ABG Carboxyhemoglobin 1.4 % (0.5-1.5) 07/07/16 11:06 POC ABG HHb (Measured) 2.5 % (0.0-5.0) 07/07/16 11:06 ABG Methemoglobin 1.3 % (0.0-3.0) 07/07/16 11:06 Rashawn Test Pos 07/07/16 11:06 Hgb O2 Saturation 94.9 % (95.0-98.0) L 07/07/16 11:06 Liter Flow 2.0 07/07/16 11:06 Sodium 131 mmol/L (132-148) L 07/09/16 08:50 Potassium 3.8 mmol/L (3.6-5.2) 07/09/16 08:50 Chloride 101 mmol/L (98-107) 07/09/16 08:50 Carbon Dioxide 18 mmol/L (22-30) L 07/09/16 08:50 Anion Gap 16 (10-20) 07/09/16 08:50 BUN 16 mg/dL (9-20) 07/09/16 08:50 Creatinine 0.7 MG/DL (0.8-1.5) L 07/09/16 08:50 Est GFR ( Amer) > 60 07/09/16 08:50 Est GFR (Non-Af Amer) > 60 07/09/16 08:50 POC Glucose (mg/dL) 82 mg/dL (65-110) 07/07/16 10:42 Random Glucose 116 mg/dL (75-110) H 07/09/16 08:50 Calcium 7.9 mg/dl (8.6-10.4) L 07/09/16 08:50 Total Bilirubin 0.6 mg/dL (0.2-1.3) 07/07/16 11:05 AST 24 U/L (17-59) 07/07/16 11:05 ALT 37 U/L (21-72) 07/07/16 11:05 Alkaline Phosphatase 166 U/L (38-126) H D 07/07/16 11:05 Lactate Dehydrogenase 520 U/L (313-618) 07/08/16 06:14 Total Creatine Kinase < 20 U/L (55-170) L 07/08/16 06:14 CK-MB (Mass) < 0.22 ng/mL (0.0-3.38) 07/08/16 06:14 Troponin I < 0.0120 ng/mL (0.00-0.120) 07/07/16 11:05 Troponin I, Quant < 0.0120 ng/mL (0.00-0.120) 07/08/16 06:14 C-React Prot High Sens > 15.00 mg/L (1.00-3.00) H 07/08/16 06:14 NT-Pro-B Natriuret Pep 60.5 pg/mL (0-900) 07/08/16 16:41 Total Protein 7.0 g/dL (6.3-8.3) 07/07/16 11:05 Albumin 3.3 g/dL (3.5-5.0) L 07/07/16 11:05 Globulin 3.7 gm/dL (2.2-3.9) 07/07/16 11:05 Albumin/Globulin Ratio 0.9 (1.0-2.1) L 07/07/16 11:05 Triglycerides 127 mg/dL (0-149) 07/08/16 06:14 Cholesterol 187 mg/dL (0-199) 07/08/16 06:14 LDL Cholesterol Direct 118 mg/dL (0-129) 07/08/16 06:14 HDL Cholesterol 35 mg/dL (30-70) 07/08/16 06:14 Stool Occult Blood Negative (NEGATIVE) 07/07/16 14:24 Stool Leukocytes, Qual Negative (NEGATIVE) 07/07/16 20:04 Stl Cryptosporidium Ag Not detected (Not detected) 07/07/16 08:37 Stl Giardia Antigen TEST NOT PERFORMED 07/07/16 08:37 Absolute Lymphs (Flow) 430 Cells/mcL (850-3900) L 07/08/16 06:14 % CD3 Cells 82 Percent (57-85) 07/08/16 06:14 Absolute CD3 Count 352 Cells/mcL (840-3060) L 07/08/16 06:14 % CD4 Cells 10 Percent (30-61) L 07/08/16 06:14 Absolute CD4 Count 42 Cells/mcL (490-1740) L 07/08/16 06:14 T-Help/Suppress Ratio 0.14 Ratio (0.86-5.00) L 07/08/16 06:14 % CD8 Cells 71 Percent (12-42) H 07/08/16 06:14 Absolute CD8 Count 306 Cells/mcL (180-1170) 07/08/16 06:14 T-Lymph Analys Comment See note 07/08/16 06:14 C. difficile Ag & Toxin Negative (NEGATIVE) 07/07/16 20:04 Cryptosp/Giardia Source Stool 07/07/16 08:37 Giardia Antigen Not detected (Not Detected) 07/07/16 08:37 - Hospital Course Hospital Course: A/P 56 yr old male admitted for sob, ana maria Pneumonia clinically improved with IV antibiotics D/W Dr. Tijerina , cleared for discharge from pulmonary stand point and f/u office in 1 month Pt is stable for discharge home today D/W DR. Jiang, cleared for discharge home today and continue MESSINA , and bactrim and prednisone and f/u with Dr Jiang office on Tuesday Discharge plan discussed with patient who understands and agree with plan Pt instructed to returns to ED if symptoms returns Discharge Exam - Head Exam Head Exam: ATRAUMATIC, NORMOCEPHALIC - Eye Exam Eye Exam: Normal appearance Pupil Exam: NORMAL ACCOMODATION - ENT Exam ENT Exam: Mucous Membranes Moist - Respiratory Exam Respiratory Exam: Clear to PA & Lateral, NORMAL BREATHING PATTERN - Cardiovascular Exam Cardiovascular Exam: REGULAR RHYTHM, +S1, +S2 - GI/Abdominal Exam GI & Abdominal Exam: Normal Bowel Sounds - Neurological Exam Neurological exam: Alert, CN II-XII Intact, Normal Gait, Oriented x3, Reflexes Normal - Psychiatric Exam Psychiatric exam: Normal Mood Discharge Plan - Discharge Medications Prescriptions: Sulfamethoxazole/Trimethoprim [Bactrim Ds Tablet] 1 each PO BID #60 tablet predniSONE [Prednisone] 30 mg PO DAILY #18 tab - Follow Up Plan Condition: STABLE Disposition: REHAB FACILITY/REHAB UNIT Instructions: Sulfamethoxazole/Trimethoprim (By mouth), Prednisone (By mouth), Pneumonia (DC) Additional Instructions: Please f/u with PMD office in 1 weeks Please f/u with Dr. Jiang office on tuesday Please f/u with Dr. Tijerina office on next month Cotinue home medications as per Med. Rec. Referrals: Jimbo Tijerina MD [Staff Provider] - Brandyn Jiang MD [Staff Provider] - Cezar Fletcher MD [Staff Provider] -
--- NOTE | 2016-07-14 20:53 | CARD ---
APPROVED REPORT EKG Measurement Heart [id number] <Conclusion> Normal sinus rhythm Normal ECG
== END 2016-07-09 17:00 | DRG 976 ==
LOC: C.ER 10:10 → C.9E 11:38 → C.6T 13:37
PROVIDERS: ADMIT Internal Medicine; ATTEND Internal Medicine
DX: B59 Pneumocystosis (principal); B20 Human immunodeficiency virus [HIV] disease; B37.0 Candidal stomatitis

== ENCOUNTER 2016-07-22 11:31 | Emergency (ER) | payer BC ==
[2016-07-22 11:49] VITALS: RESP 20; TEMP 97.8
--- NOTE | 2016-07-22 13:16 | C.PDOC ---
History Of Present Illness 56 y/o male with Hx of HIV presents to ED with complaints of dizziness and loss of appetite for 2 days. Patient also reports Nausea/Vomit when eating and diarrhea today. Patient states he has 4-5 bowel movements on a day and at baseline has 1. On 07/09/16 patient was seen at ED for Pneumonia and discharged with medications. Patient is compliant with HIV medications and denies fever, chills or any other complaints at this time. Patient is a bad historian DC 07/09 S/P PNEUMONIA. Time Seen by Provider: 07/22/16 12:49 Chief Complaint (Nursing): Dizziness/Lightheaded History Per: Patient History/Exam Limitations: no limitations Onset/Duration Of Symptoms: Days Current Symptoms Are (Timing): Still Present Associated Symptoms Preceding Syncopal Episode: Lightheadedness, Worse With Standing Past Medical History Reviewed: Historical Data, Nursing Documentation, Vital Signs Vital Signs: Last Vital Signs Temp 97.8 F 07/22/16 11:43 Pulse 102 H 07/22/16 11:43 Resp 20 07/22/16 11:43 BP 101/67 07/22/16 11:43 Pulse Ox 100 07/22/16 15:11 - Medical History PMH: HIV (Recently diagnosed in 2017), Pneumonia Family History: States: No Known Family Hx - Social History Hx Alcohol Use: No Hx Substance Use: No - Immunization History Hx Tetanus Toxoid Vaccination: No Hx Influenza Vaccination: No Hx Pneumococcal Vaccination: Yes Review Of Systems Except As Marked, All Systems Reviewed And Found Negative. Constitutional: Negative for: Fever, Chills Cardiovascular: Negative for: Chest Pain Respiratory: Negative for: Shortness of Breath Gastrointestinal: Positive for: Nausea, Vomiting, Diarrhea Genitourinary: Negative for: Dysuria Neurological: Positive for: Weakness, Dizziness Physical Exam - Physical Exam Appears: Non-toxic, Other (Weak) Skin: Normal Color, Warm Head: Atraumatic, Normacephalic Oral Mucosa: Moist Neck: Normal ROM Cardiovascular: Rhythm Regular Respiratory: No Rales, No Rhonchi, No Wheezing Gastrointestinal/Abdominal: Soft, No Tenderness, No Guarding, No Rebound Extremity: Normal ROM Neurological/Psych: Oriented x3, Normal Speech, Normal Cognition ED Course And Treatment - Laboratory Results Result Diagrams: 07/22/16 14:00 07/22/16 14:00 O2 Sat by Pulse Oximetry: 100 (RA) Pulse Ox Interpretation: Normal Progress - Re-Evaluation Re-evaluation Note: 07/22/16 15:10 SP NS 1L NO UO. FEELS BETTER. CT PENDING 07/22/16 17:32 feels better. dc abx - Data Reviewed Data Reviewed: Lab, Diagnostic imaging, Old records Disposition Counseled Patient/Family Regarding: Studies Performed, Diagnosis, Need For Followup, Rx Given - Disposition Referrals: YOUR,PMD [Other] Disposition: HOME/ ROUTINE Disposition Time: 17:32 Condition: IMPROVED Prescriptions: Ciprofloxacin [Cipro] 1 tab PO BID #14 tab Metronidazole [Flagyl] 500 mg PO BID #14 tab Instructions: Acute Diarrhea (ED) - Clinical Impression Clinical Impression: HIV antibody positive, Diarrhea - PA / OPERATIONAL TEST MECHANIC / Resident Statement / has reviewed & agrees with the documentation as recorded. MD/DO has examined the patient and agrees with the treatment plan. - Scribe Statement The provider has reviewed the documentation as recorded by the Mary Sanders All medical record entries made by the Mary were at my direction and personally dictated by me. I have reviewed the chart and agree that the record accurately reflects my personal performance of the history, physical exam, medical decision making, and the department course for this patient. I have also personally directed, reviewed, and agree with the discharge instructions and disposition.
[2016-07-22] MEDS ORDERED: Iohexol 240 (50 ml) PO STA (13:32)
[2016-07-22] MEDS ORDERED: Sodium Chloride 0.9% 1,000 ML IV ONE ×2 (13:32→15:09)
[2016-07-22] MEDS ORDERED: Sodium Chloride 0.9% 1,000 ML IV SCH (13:45)
[2016-07-22] MEDS ORDERED: Sodium Chloride 0.9% 1,000 ML ONE ×2 (13:55→15:31)
[2016-07-22] MEDS ORDERED: Iohexol 240 (50 ml) ONE (13:55)
[2016-07-22 14:12] LABS: BASO % 0.5 % (0.0-2.0); EOS % 0.4 % (0.0-4.0); HEMATOCRIT 42.3 % (35.0-51.0); LYMPH # 0.9 K/uL (1.0-4.3); LYMPH % 19.4 % (20.0-40.0); MEAN CELL VOLUME 87.7 fL (80.0-94.0); MEAN CORPUSCULAR HEMOGLOBIN 29.4 pg (27.0-31.0); MEAN CORPUSCULAR HGB CONC 33.6 g/dL (33.0-37.0); MEAN PLATELET VOLUME 7.1 fL (7.2-11.7); MONO # 0.3 K/uL (0.0-0.8); MONO % 6.7 % (0.0-10.0); NRBC % 0.1 % (0.0-2.0); RED CELL DISTRIBUTION WIDTH 16.5 % (11.5-14.5); WHITE BLOOD COUNT 4.7 K/uL (4.8-10.8)
[2016-07-22 14:22] LABS: CHLORIDE 100 mmol/L (98-107); SODIUM 130 mmol/L (132-148)
[2016-07-22 14:23] LABS: POTASSIUM 3.6 mmol/L (3.6-5.2)
[2016-07-22 14:25] LABS: BLOOD UREA NITROGEN 13 mg/dL (9-20); CARBON DIOXIDE 22 mmol/L (22-30); GFR AFRICAN-AMERICAN > 60
[2016-07-22 14:26] LABS: GLUCOSE,RANDOM 83 mg/dL (75-110)
[2016-07-22 14:30] LABS: RBC URINE 3 /hpf (0-3); URINE BILIRUBIN NEGATIVE (NEGATIVE); URINE BLOOD NEGATIVE (NEGATIVE); URINE CALCIUM OXALATE CRYSTALS MOD /hpf (<OCC); URINE GLUCOSE (UA) NORMAL (Normal); URINE KETONE TRACE mg/dL (NEGATIVE); URINE LEUKOCYTE ESTERASE NEG Leu/uL (Negative); URINE PROTEIN 1+ mg/dL (NEGATIVE); URINE UROBILINOGEN NORMAL mg/dL (0.2-1.0); WBC URINE 4 /hpf (0-5)
[2016-07-22 14:33] LABS: URINE COLOR DARK YELLOW (YELLOW)
[2016-07-22] MEDS ORDERED: Iodixanol 320 MG/ML 100 ML BOTTLE IV ONE (15:16)
[2016-07-22] MEDS ORDERED: Vitamins A & D Oint UD Foilpak ONE (16:21)
--- NOTE | 2016-07-22 17:25 | CT ---
PROCEDURE: CT Abdomen and Pelvis with oral and IV contrast. HISTORY: VOMITING AND DIARRHEA, HO HIV COMPARISON: CTA chest PE protocol performed 06/13/16 TECHNIQUE: Contiguous axial images of the abdomen and pelvis. Oral and IV contrast was administered. Coronal and Sagittal reformats generated and reviewed. Contrast dose: 100 cc Visipaque 320 Radiation dose: Total exam DLP = 392.84 mGy-cm. This CT exam was performed using one or more of the following dose reduction techniques: Automated exposure control, adjustment of the mA and/or kV according to patient size, and/or use of iterative reconstruction technique. FINDINGS: LOWER THORAX: Patchy bilateral infiltrates. No visible pleural effusion or pneumothorax. Small hiatal hernia. LIVER: 9 mm too small to characterize hepatic dome hypodensity. GALLBLADDER AND BILE DUCTS: Densely calcified gallbladder wall. PANCREAS: Unremarkable. SPLEEN: Unremarkable. ADRENALS: Unremarkable. KIDNEYS AND URETERS: The kidneys enhance symmetrically. No hydronephrosis or obstructing renal calculus. BLADDER: Decompressed urinary bladder precludes adequate evaluation. REPRODUCTIVE: Unremarkable. APPENDIX: The appendix appears within normal limits of caliber. No secondary signs of acute appendicitis. BOWEL: The stomach is nondistended. The bowel loops appear within normal limits of caliber without evidence of intestinal obstruction. Fluid within the colon consistent with diarrheal illness. Diffuse colonic wall thickening most prominently involving the right colon, transverse colon, and rectosigmoid colon may be seen in the setting of colitis (i.e. infectious, inflammatory, ischemic). PERITONEUM: No significant free fluid. No definite free air. LYMPH NODES: No bulky lymphadenopathy identified. VASCULATURE: No aortic aneurysm. BONES: Degenerative changes. OTHER FINDINGS: None. IMPRESSION: Patchy bilateral infiltrates. Densely calcified gallbladder wall. 9 mm too small to characterize hepatic dome hypodensity. Fluid within the colon consistent with diarrheal illness. Diffuse colonic wall thickening most prominently involving the right colon, transverse colon, and rectosigmoid colon may be seen in the setting of colitis (i.e. infectious, inflammatory, ischemic). Additional findings as above.
[2016-07-22 17:45] VITALS: BP 118/62; PULSE 90; O2SAT 99
== END 2016-07-22 17:58 | disposition home or self-care (01) ==
LOC: C.ER 11:31
DX: R19.7 Diarrhea, unspecified (principal); B20 Human immunodeficiency virus [HIV] disease
CPT/HCPCS: 74177; 80048; 81001; 85025; 87045; 87230; 96360; 96361; 99285; J7040; Q9966; Q9967

== ENCOUNTER 2018-04-11 06:08 | Inpatient (IN) | payer BC, OTHER ==
--- NOTE | 2018-04-11 06:12 | C.PDOC ---
History Of Present Illness Patient presents with 4 days of nausea, vomiting and loose stools. No f/c. Decreased po intake. Dull, cramping abdominal pain. Time Seen by Provider: 04/11/18 06:12 History Per: Patient History/Exam Limitations: no limitations Onset/Duration Of Symptoms: Days Current Symptoms Are (Timing): Still Present Severity: Moderate Pain Scale Rating Of: 5 Reports Recently: Treated By A Physician Recent travel outside of the [place]: No Additional History Per: Patient Past Medical History Reviewed: Historical Data, Nursing Documentation, Vital Signs - Medical History PMH: HIV (Recently diagnosed in 2017), Pneumonia Denies: Chronic Kidney Disease Family History: States: No Known Family Hx - Social History Hx Alcohol Use: No Hx Substance Use: No - Immunization History Hx Tetanus Toxoid Vaccination: No Hx Influenza Vaccination: No Hx Pneumococcal Vaccination: Yes Review Of Systems Constitutional: Negative for: Fever, Chills Cardiovascular: Negative for: Chest Pain Respiratory: Negative for: Shortness of Breath Gastrointestinal: Positive for: Nausea, Vomiting, Abdominal Pain Genitourinary: Negative for: Dysuria Musculoskeletal: Negative for: Back Pain Skin: Negative for: Rash Neurological: Negative for: Weakness Psych: Negative for: Anxiety Physical Exam - Physical Exam Appears: Non-toxic Skin: Warm, Dry Head: Normacephalic Eye(s): bilateral: Normal Inspection Oral Mucosa: Dry Chest: Symmetrical Cardiovascular: Rhythm Regular Respiratory: No Rales, No Rhonchi Gastrointestinal/Abdominal: Bowel Sounds (tympanic to percussion), Soft, Tenderness, Distention Back: No CVA Tenderness Extremity: Normal ROM Extremity: Bilateral: Atraumatic Neurological/Psych: Oriented x3 Gait: Steady ED Course And Treatment - Laboratory Results Result Diagrams: 04/11/18 06:22 04/11/18 06:22 ECG: Interpreted By Me, Viewed By Me ECG Rhythm: Sinus Rhythm (100), Nonspecific Changes O2 Sat by Pulse Oximetry: 99 Pulse Ox Interpretation: Normal Disposition Counseled Patient/Family Regarding: Studies Performed, Diagnosis - Disposition Disposition Time: 06:12 Condition: FAIR - Clinical Impression Clinical Impression: Abdominal pain, Nausea, Vomiting Physician Patient Turnover Patient Signed Over To: Darya Greenberg Handoff Comments: pending labs, CT , re-eval and dispo
[2018-04-11] MEDS ORDERED: Sodium Chloride 0.9% 1,000 ML IV ONE ×2 (06:14→07:26)
[2018-04-11] MEDS ORDERED: Sodium Chloride 0.9% 1,000 ML ONE (06:24)
[2018-04-11 06:25] LABS: BASO % 0.3 % (0.0-2.0); LYMPH # 3.7 K/uL (1.0-4.3); LYMPH % 29.1 % (20.0-40.0); MEAN CELL VOLUME 92.1 fL (80.0-94.0); MEAN CORPUSCULAR HEMOGLOBIN 31.5 pg (27.0-31.0); MEAN CORPUSCULAR HGB CONC 34.2 g/dL (33.0-37.0); MONO # 1.4 K/uL (0.0-0.8); MONO % 10.7 % (0.0-10.0); NEUT # 7.7 K/uL (1.8-7.0); NEUT % 59.9 % (50.0-75.0); NRBC % 0.1 % (0.0-2.0); RBC 6.44 Mil/uL (4.40-5.90); RED CELL DISTRIBUTION WIDTH 14.3 % (11.5-14.5); WHITE BLOOD COUNT 12.8 K/uL (4.8-10.8)
[2018-04-11 06:33] LABS: HEMOGLOBIN 20.3 g/dL (12.0-18.0)
[2018-04-11] MEDS ORDERED: Iodixanol 320 MG/ML 100 ML BOTTLE IV ONE (06:33)
[2018-04-11 06:35] LABS: INR 1.1
[2018-04-11 06:40] LABS: ALBUMIN 5.3 g/dL (3.5-5.0)
[2018-04-11 06:42] LABS: BROAD CAST 18 /lpf (0-1); GRANULAR CAST 10 /lpf (0-1); SQUAMOUS EPITHIAL 1 /hpf (0-5); URINE BACTERIA RARE (<OCC); URINE BILIRUBIN NEGATIVE (NEGATIVE); URINE BLOOD NEGATIVE (NEGATIVE); URINE CLARITY Hazy (Clear); URINE COLOR Amber (YELLOW); URINE GLUCOSE (UA) NORMAL (Normal); URINE LEUKOCYTE ESTERASE NEG Leu/uL (Negative); URINE PROTEIN 1+ mg/dL (NEGATIVE); URINE UROBILINOGEN NORMAL mg/dL (0.2-1.0)
--- NOTE | 2018-04-11 09:41 | CT ---
Date of service: 04/11/2018 PROCEDURE: CT Abdomen and Pelvis without intravenous contrast HISTORY: abd pain, n/v COMPARISON: CT abdomen and pelvis 07/22/2016 TECHNIQUE: Without contrast.. Initially the exam was requested for IV contrast. As patient's very low GFR was noted this was deferred Contrast dose: None Radiation dose: Total exam DLP = 853 mGy-cm. This CT exam was performed using one or more of the following dose reduction techniques: Automated exposure control, adjustment of the mA and/or kV according to patient size, and/or use of iterative reconstruction technique. FINDINGS: LOWER THORAX: The prior dependent patchy airspace opacities are much improved. Currently no interval pathology here apart from hypoventilatory changes are suggested. Few atherosclerotic vascular calcifications of the thoraco abdominal aorta are noted. Different levels of axial imaging of the inferior thorax were obtained compared the prior study. On the current study shotty nonspecific mediastinal lymph nodes are seen some of these are present are identified on the prior study. No lymph nodes currently visualized suspicious for their short axis are appreciated Similar small sliding hiatal hernia noted LIVER: The prior subcentimeter posterior right hepatic dome hypodensity is not appreciate on this exam previously contrast was administered-currently no contrast was administered. No interval liver masses are seen. No ductal dilatation. GALLBLADDER AND BILE DUCTS: The prior densely and diffusely calcified gallbladder wall including the most proximal mural hepatic duct segment of it is similar in appearance. No differential density masses within it are seen. However a diffuse mass filling the gallbladder and/or obscured and blending with the background internal gallbladder contents cannot be excluded. PANCREAS: The prior intrinsic fullness to the pancreatic head is similar. This is in comparison to the remaining body and tail of the same. Without IV contrast is segment is markedly limited in its evaluation. Pancreatic head pathology cannot be excluded. No gross serjio pancreatic fat infiltration noted on this noncontrast study. No gross suspicious peripancreatic node seen. No gross lesion or ductal dilatation. SPLEEN: Unremarkable. ADRENALS: Unremarkable. No mass. KIDNEYS AND URETERS: Unremarkable. No hydronephrosis. No solid mass. VASCULATURE: Unremarkable. No aortic aneurysm. No atherosclerotic calcification or mural plaque present. BOWEL: In the mid and proximal left sided small bowel loops are segments of circumferential mural thickening Additional regional small bowel loops with air-fluid levels present. The caliber of these small bowel loops with fluid appear top normal.. There is fluid in the rectosigmoid colon-no gross mural thickening here seen. No extra luminal inflammatory changes identified on this exam.. There is some seen within the cecum and right colon. No bowel obstruction seen. APPENDIX: Unremarkable. Normal appendix. PERITONEUM: Unremarkable. No free fluid. No free air. LYMPH NODES: Unremarkable. No enlarged lymph nodes. BLADDER: Unremarkable. REPRODUCTIVE: Unremarkable. BONES: No acute fracture. Lumbar spondylosis and intervening degenerative disc disease. OTHER FINDINGS: A 5 mm calcification within the central left psoas muscle is present and similar in appearance IMPRESSION: The mid and proximal small bowel findings are nonspecific but can be seen with enteritis from multiple etiologies. The caliber here is believed top-normal. No high-grade obstruction seen. The fluid in the colonic segments less now than before can also be seen at in patients with diarrhea. Correlate clinically. Interval improved aeration at both lung bases. No interval infiltrate here seen. 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 These findings are noted and similar to the 2017 study. Other findings as above.
[2018-04-11] MEDS ORDERED: Ciprofloxacin 400mg/200ml D5W 400 MG/200 ML BAG IVPB SCH (13:00)
[2018-04-11] MEDS ORDERED: metroNIDAZOLE IV 500 mg/100 ml 500 MG/100 ML BAG IVPB SCH (14:00)
[2018-04-11] MEDS ORDERED: LamiVUDine 10 mg/ml Syringe PO SCH (15:15)
--- NOTE | 2018-04-11 15:57 | CP.PCM.CON ---
<Gagandeep Lucero - Last Filed: 04/11/18 15:51> History of Present Illness - History of Present Illness History of Present Illness: PGY6 GI Fellow Consult Note Patient is a 57yo male with PMHx significant for HIV on HAART, questionable PUD who presented to the ED with abdominal pain, nausea, vomiting and diarrhea. The patient states symptoms started Tuesday afternoon with nausea followed by the development of LLQ abdominal pain and later multiple episodes of loose watery diarrhea. He had over 10 episodes each day until yesterday when he had 4-5 episodes. In the last 24 hours he has had ongoing LLQ abdominal cramping pain and 4+ episodes of diarrhea. Denies any weight loss, rectal bleeding, fever, chills, recent illness, recent use of antibiotics. Did travel to [facility] but returned on February 28. 12 system ROS performed and negative except where stated PMHx: See HPI PSHx: Discussed with patient and denies prior surgery FHx: Discussed with patient and he denies any significant family history Social: Denies tobacco, EtOH or illicit drug use Endo: Colonoscopy 10+ years ago with no significant findings per patient Past Patient History - Infectious Disease Hx of Infectious Diseases: None - Past Medical History & Family History Past Medical History?: Yes - Past Social History Smoking Status: Never Smoked - CARDIAC Hx Cardiac Disorders: No - PULMONARY Hx Respiratory Disorders: Yes Hx Pneumonia: Yes - NEUROLOGICAL Hx Neurological Disorder: No - HEENT Hx HEENT Problems: No - RENAL Hx Chronic Kidney Disease: No - ENDOCRINE/METABOLIC Hx Endocrine Disorders: No - HEMATOLOGICAL/ONCOLOGICAL Hx Blood Disorders: Yes Hx Human Immunodeficiency Virus (HIV): Yes (Recently diagnosed in 2017) - INTEGUMENTARY Hx Dermatological Problems: No - MUSCULOSKELETAL/RHEUMATOLOGICAL Hx Musculoskeletal Disorders: Yes Hx Falls: No Other/Comment: restless leg syndrome - GASTROINTESTINAL Hx Gastrointestinal Disorders: No - GENITOURINARY/GYNECOLOGICAL Hx Genitourinary Disorders: No - PSYCHIATRIC Hx Substance Use: No - SURGICAL HISTORY Hx Surgeries: No - ANESTHESIA Hx Anesthesia: No Meds Allergies/Adverse Reactions: Allergies Allergy/AdvReac Type Severity Reaction Status Date / Time No Known Allergies Allergy Verified 07/07/16 10:15 - Medications Medications: Current Medications Abacavir Sulfate (Ziagen) 300 mg PO BID [facility]; Protocol Dolutegravir Sodium (Tivicay) 50 mg PO BID [facility]; Protocol Gabapentin (Neurontin) 100 mg PO TID DEDRA Metronidazole (Flagyl) 500 mg in 100 mls @ 100 mls/hr IVPB Q8H [facility]; Protocol Ciprofloxacin (Cipro 200mg/100ml D5w) 100 mls @ 66.667 mls/hr IVPB Q12H [facility]; Protocol Influenza Virus Vaccine (Flucelvax Quad [id number] Syr) 60 mcg IM .ONCE ONE Stop: 04/13/18 10:01 Lamivudine (Epivir) 50 mg PO Q24H [facility] Rosuvastatin Calcium (Crestor) 2.5 mg PO HS [facility] Results - Vital Signs Recent Vital Signs: Last Vital Signs Temp 98.1 F 04/11/18 11:21 Pulse 90 04/11/18 11:21 Resp 18 04/11/18 11:21 BP 143/80 04/11/18 11:21 Pulse Ox 94 L 04/11/18 11:21 - Labs Result Diagrams: 04/11/18 06:55 04/11/18 06:22 Labs: Laboratory Results - last 24 hr 04/11/18 04/11/18 04/11/18 06:22 06:22 06:22 WBC 12.8 H D RBC 6.44 H Hgb 20.3 H* D Hct 59.3 H MCV 92.1 D MCH 31.5 H MCHC 34.2 RDW 14.3 Plt Count 272 D MPV 8.0 Neut % (Auto) 59.9 Lymph % (Auto) 29.1 [place] % (Auto) 10.7 H Eos % (Auto) 0.0 Baso % (Auto) 0.3 Neut # (Auto) 7.7 H Lymph # (Auto) 3.7 [place] # (Auto) 1.4 H Eos # (Auto) 0.0 Baso # (Auto) 0.0 PT 12.0 INR 1.1 APTT 33 Sodium 133 Potassium 4.1 Chloride 95 L Carbon Dioxide 17 L Anion Gap 25 H BUN 72 H Creatinine 5.6 H Est GFR ( Amer) 13 Est GFR (Non-Af Amer) 11 Random Glucose 117 H D Calcium 9.0 Total Bilirubin 1.2 AST 102 H ALT 139 H D Alkaline Phosphatase 145 H Total Protein 10.4 H Albumin 5.3 H D Globulin 5.2 H Albumin/Globulin Ratio 1.0 Lipase 338 H Urine Color Urine Clarity Urine pH Ur Specific [place] Urine Protein Urine Glucose (UA) Urine Ketones Urine Blood Urine Nitrate Urine Bilirubin Urine Urobilinogen Ur Leukocyte Esterase Urine WBC (Auto) Urine RBC (Auto) Ur Squamous Epith Cells Urine Bacteria Hyaline Casts Granular Casts (Auto) Broad Casts 04/11/18 04/11/18 06:28 06:55 WBC RBC Hgb 19.2 H Hct MCV MCH MCHC RDW Plt Count MPV Neut % (Auto) Lymph % (Auto) [place] % (Auto) Eos % (Auto) Baso % (Auto) Neut # (Auto) Lymph # (Auto) [place] # (Auto) Eos # (Auto) Baso # (Auto) PT INR APTT Sodium Potassium Chloride Carbon Dioxide Anion Gap BUN Creatinine Est GFR ( Amer) Est GFR (Non-Af Amer) Random Glucose Calcium Total Bilirubin AST ALT Alkaline Phosphatase Total Protein Albumin Globulin Albumin/Globulin Ratio Lipase Urine Color [place] Urine Clarity Hazy Urine pH 5.0 Ur Specific [place] 1.019 Urine Protein 1+ H Urine Glucose (UA) Normal Urine Ketones Negative Urine Blood Negative Urine Nitrate Negative Urine Bilirubin Negative Urine Urobilinogen Normal Ur Leukocyte Esterase Neg Urine WBC (Auto) 6 H Urine RBC (Auto) 2 Ur Squamous Epith Cells 1 Urine Bacteria Rare Hyaline Casts 6-10 H Granular Casts (Auto) 10 Broad Casts 18 Assessment & Plan - Assessment and Plan (Free Text) Assessment: Patient is a 57yo male with PMHx significant for HIV on HAART, questionable PUD who presented to the ED with abdominal pain, nausea, vomiting and diarrhea -Acute diarrheal illness -NEVIN -Hemoconcentration -Immunocompromised status with HIV on HAART -Abnormal LFTs - hepatocellular pattern Plan: -Significant dehydration presumed given lab findings; recommend IVF resuscitation -Ongoing therapy with antibiotics as ordered - Cipro/Flagyl -Stool culture - check culture/O&P/giardia/C diff -Supportive care -Monitor CMP and reevaluate lab work after euvolemic state achieved - Date & Time Date: 04/11/18 Time: 03:45 <Sav Hairston - Last Filed: 04/11/18 16:07> Meds - Medications Medications: Current Medications Abacavir Sulfate (Ziagen) 300 mg PO BID [facility]EDRA; Protocol Dolutegravir Sodium (Tivicay) 50 mg PO BID [facility]; Protocol Gabapentin (Neurontin) 100 mg PO TID [facility] Metronidazole (Flagyl) 500 mg in 100 mls @ 100 mls/hr IVPB Q8H [facility]; Protocol Ciprofloxacin (Cipro 200mg/100ml D5w) 100 mls @ 66.667 mls/hr IVPB Q12H [facility]; Protocol Influenza Virus Vaccine (Flucelvax Quad [id number] Syr) 60 mcg IM .ONCE ONE Stop: 04/13/18 10:01 Lamivudine (Epivir) 50 mg PO Q24H [facility] Rosuvastatin Calcium (Crestor) 2.5 mg PO HS [facility] Results - Vital Signs Recent Vital Signs: Last Vital Signs Temp 98.1 F 04/11/18 11:21 Pulse 90 04/11/18 11:21 Resp 18 04/11/18 11:21 BP 143/80 04/11/18 11:21 Pulse Ox 94 L 04/11/18 11:21 - Labs Result Diagrams: 04/11/18 06:55 04/11/18 06:22 Labs: Laboratory Results - last 24 hr 04/11/18 04/11/18 04/11/18 06:22 06:22 06:22 WBC 12.8 H D RBC 6.44 H Hgb 20.3 H* D Hct 59.3 H MCV 92.1 D MCH 31.5 H MCHC 34.2 RDW 14.3 Plt Count 272 D MPV 8.0 Neut % (Auto) 59.9 Lymph % (Auto) 29.1 [place] % (Auto) 10.7 H Eos % (Auto) 0.0 Baso % (Auto) 0.3 Neut # (Auto) 7.7 H Lymph # (Auto) 3.7 [place] # (Auto) 1.4 H Eos # (Auto) 0.0 Baso # (Auto) 0.0 PT 12.0 INR 1.1 APTT 33 Sodium 133 Potassium 4.1 Chloride 95 L Carbon Dioxide 17 L Anion Gap 25 H BUN 72 H Creatinine 5.6 H Est GFR ( Amer) 13 Est GFR (Non-Af Amer) 11 Random Glucose 117 H D Calcium 9.0 Total Bilirubin 1.2 AST 102 H ALT 139 H D Alkaline Phosphatase 145 H Total Protein 10.4 H Albumin 5.3 H D Globulin 5.2 H Albumin/Globulin Ratio 1.0 Lipase 338 H Urine Color Urine Clarity Urine pH Ur Specific [place] Urine Protein Urine Glucose (UA) Urine Ketones Urine Blood Urine Nitrate Urine Bilirubin Urine Urobilinogen Ur Leukocyte Esterase Urine WBC (Auto) Urine RBC (Auto) Ur Squamous Epith Cells Urine Bacteria Hyaline Casts Granular Casts (Auto) Broad Casts 04/11/18 04/11/18 06:28 06:55 WBC RBC Hgb 19.2 H Hct MCV MCH MCHC RDW Plt Count MPV Neut % (Auto) Lymph % (Auto) [place] % (Auto) Eos % (Auto) Baso % (Auto) Neut # (Auto) Lymph # (Auto) [place] # (Auto) Eos # (Auto) Baso # (Auto) PT INR APTT Sodium Potassium Chloride Carbon Dioxide Anion Gap BUN Creatinine Est GFR ( Amer) Est GFR (Non-Af Amer) Random Glucose Calcium Total Bilirubin AST ALT Alkaline Phosphatase Total Protein Albumin Globulin Albumin/Globulin Ratio Lipase Urine Color [place] Urine Clarity Hazy Urine pH 5.0 Ur Specific [place] 1.019 Urine Protein 1+ H Urine Glucose (UA) Normal Urine Ketones Negative Urine Blood Negative Urine Nitrate Negative Urine Bilirubin Negative Urine Urobilinogen Normal Ur Leukocyte Esterase Neg Urine WBC (Auto) 6 H Urine RBC (Auto) 2 Ur Squamous Epith Cells 1 Urine Bacteria Rare Hyaline Casts 6-10 H Granular Casts (Auto) 10 Broad Casts 18 Attending/Attestation - Attestation I have personally seen and examined this patient.: Yes I have fully participated in the care of the patient.: Yes I have reviewed all pertinent clinical information: Yes Notes (Text): 04/11/18 16:01 I have seen and examined patient with GI fellow. Agree with above documentation with the following additions. In brief, this is a 57 year old male with history of HIV on HAART who presents to hospital with complaint of abdominal pain, nausea, vomiting, diarrhea which began suddenly 3 days ago. Prior to this he was in usual state of health. He reports epigastric pain, 5/10 intensity radiating to LLQ with associated multiple episodes (up to 10) of watery diarrhea without presence of blood in stool. He denies fever/chills, weight loss, sick contacts, recent travel (went to [facility] last month), antibiotic use, or unusual food consumption. He had a colonoscopy nearly 15 years ago which was normal as per patient. Physical exam: HEENT: ELEANOR, EOMI Chest: CTA B/L CV: RRR S1S2 Abdomen: soft, mild epigastric tenderness to palpation, no rebound/guarding, no palpable hepato/splenomegaly Extremities: no edema Skin: warm, dry, intact, no suspicious lesions Psych: mood, affect appropriate Neuro: AAO x 3, CN 3-12 intact HIV on HAART Abdominal pain, diarrhea - presumed infectious enteritis Acute renal insufficiency Transaminitis - Clear liquid diet as tolerated - Continue with antibiotic therapy - Obtain stool studies - Continue with IVF hydration therapy, supportive care - Consider surgical consultation given 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
[2018-04-11 17:26] VITALS: RESP 20
--- NOTE | 2018-04-11 20:01 | CP.PCM.CON ---
History of Present Illness - History of Present Illness History of Present Illness: INFECTIOUS DISEASE CONSULT; HPI; 57-year-old male, well-known to me with past medical history significant for HIV May 2016 when he was diagnosed with probable PCP pneumonia. Since then patient has been compliant with his antiretroviral medication and has been on Epzicom ( Epivir + ABACAVIR) and TIVICAY 50 mg by mouth twice a day. PATIENT ALSO HAS HISTORY OFF PERIPHERAL NEUROPATHY AND HYPERCHOLESTEROLEMIA FOR WHICH HE IS TAKING GABAPENTIN SEEN 300 MG 3 TIMES A DAY AND PRAVACHOL 20 MG ONE TABLET ONCE A DAY DAILY. PATIENT ALSO ON VITAMIN D3 , BECAUSE OF VITAMIN d DEFICIENCY TAKING 50,000 UNITS CAPSULE 1 TABLET ORALLY WEEKLY FOR 3 MONTHS. LAST VITAMIN D LEVEL WAS STILL LOW AT 28 NG PER Ml ON 04/01/18. Patient now comes in with history off nausea vomiting and diarrhea since 4 days. Patient also complains of left lower quadrant abdominal pain, with multiple episodes of loose watery diarrhea. He had over 10 episodes each day until yesterday when he had 4-5 episodes. Patient denies any fever or chills, denies any weight loss, GI bleeding, or any recent sore throat or cough. Patient recently traveled to [facility] for about a month and a half with his family and came back on February [id number]. Patient was seen in the office on feb,, and was found to have a UTI with Escherichia coli resistant to Cipro.PATIENT DENIES HEMATURIA AT THAT TIME. Patient was treated with by mouth Augmentin 875 mg twice a day for 7 days. Repeat urine cultures were negative and his PSA reported normal 0N 04/01/18. PATIENT DENIES ANY RECENT SICK CONTACT. INFECTIOUS DISEASE CONSULTATION REQUESTED FOR ABDOMINAL PAIN, DIARRHEA AND ACUTE RENAL FAILURE/AND FOR EVALUATION OF HIS HAART. Patient had a CT of the abdomen and pelvis which showed porcelain gallbladder and nonspecific enteritis. PATIENT'S LIPASE WAS 338. wITH wbc OF 12.8, AND HEMATOCRIT OF 20.3/59.3 AND NORMAL PLATELETS. PATIENT'S LAST CD4 HELPER CELLS WAS 399 /UL LAST VIRAL LOAD WAS LESS THAN 20 COPIES PER Ml PAST SURGICAL HISTORY; UNREMARKABLE PMH; HIV+VE (06/13/16 ),ORAL CANDIDIASIS, AND RECENT PNEUMONIA. SH:DENIES SMOKING OR DRINKING. DENIES SUBSTANCE ABUSE. FAMILY HISTORY; UNREMARKABLE. SURGICAL HISTORY; NO KNOWN SURGICAL HISTORY IMMUNIZATION; PATIENT GOT PNEUMOCOCCAL VACCINE. JUNE 2016. Hx Tetanus Toxoid Vaccination: No Hx Influenza Vaccination: No ALLERGY; NKA. Review of Systems - Constitutional Constitutional: absent: Chills, Fever - EENT Eyes: absent: Change in Vision Nose/Mouth/Throat: Dry Mouth. absent: Mouth Lesions, Odynophagia - Cardiovascular Cardiovascular: absent: Chest Pain - Respiratory Respiratory: absent: Cough, Chest Congestion - Gastrointestinal Gastrointestinal: Abdominal Pain, Diarrhea, Nausea, Vomiting - Genitourinary Genitourinary: absent: Difficulty Urinating, Dysuria, Hematuria, Hx /Renal Surgery - Neurological Neurological: absent: Dizziness, Headaches - Hematologic/Lymphatic Hematologic: As Per HPI. absent: Easy Bleeding, Easy Bruising, Lymphadenopathy Past Patient History - Infectious Disease Hx of Infectious Diseases: None - Past Medical History & Family History Past Medical History?: Yes - Past Social History Smoking Status: Never Smoked - CARDIAC Hx Cardiac Disorders: No - PULMONARY Hx Respiratory Disorders: Yes Hx Pneumonia: Yes - NEUROLOGICAL Hx Neurological Disorder: No - HEENT Hx HEENT Problems: No - RENAL Hx Chronic Kidney Disease: No - ENDOCRINE/METABOLIC Hx Endocrine Disorders: No - HEMATOLOGICAL/ONCOLOGICAL Hx Blood Disorders: Yes Hx Human Immunodeficiency Virus (HIV): Yes (Recently diagnosed in 2016) - INTEGUMENTARY Hx Dermatological Problems: No - MUSCULOSKELETAL/RHEUMATOLOGICAL Hx Musculoskeletal Disorders: Yes Hx Falls: No Other/Comment: restless leg syndrome - GASTROINTESTINAL Hx Gastrointestinal Disorders: No - GENITOURINARY/GYNECOLOGICAL Hx Genitourinary Disorders: No - PSYCHIATRIC Hx Substance Use: No - SURGICAL HISTORY Hx Surgeries: No - ANESTHESIA Hx Anesthesia: No Meds Allergies/Adverse Reactions: Allergies Allergy/AdvReac Type Severity Reaction Status Date / Time No Known Allergies Allergy Verified 07/07/16 10:15 - Medications Medications: Current Medications Abacavir Sulfate (Ziagen) 300 mg PO BID [facility]EDRA; Protocol Last Admin: 04/11/18 17:53 Dose: 300 mg Dolutegravir Sodium (Tivicay) 50 mg PO BID [facility]; Protocol Gabapentin (Neurontin) 100 mg PO TID [facility] Last Admin: 04/11/18 17:53 Dose: 100 mg Ciprofloxacin (Cipro 200mg/100ml D5w) 100 mls @ 66.667 mls/hr IVPB Q12H [facility]; Protocol Piperacillin Sod/Tazobactam Sod (Zosyn 2.25 Gm Iv Premix) 2.25 gm in 50 mls @ 100 mls/hr IVPB Q8H [facility]; Protocol Influenza Virus Vaccine (Flucelvax Quad [id number] Syr) 60 mcg IM .ONCE ONE Stop: 04/13/18 10:01 Lamivudine (Epivir) 50 mg PO Q24H [facility] Last Admin: 04/11/18 18:16 Dose: Not Given Rosuvastatin Calcium (Crestor) 2.5 mg PO HS [facility] Physical Exam - Constitutional Appears: No Acute Distress - Head Exam Head Exam: NORMAL INSPECTION - Eye Exam Eye Exam: EOMI, PERRL - ENT Exam ENT Exam: Normal Oropharynx - Neck Exam Neck exam: Positive for: Normal Inspection. Negative for: Meningismus - Respiratory Exam Respiratory Exam: Clear to Auscultation Bilateral, NORMAL BREATHING PATTERN - Cardiovascular Exam Cardiovascular Exam: REGULAR RHYTHM, +S1, +S2 - GI/Abdominal Exam GI & Abdominal Exam: Normal Bowel Sounds, Soft. absent: Distended, Tenderness - Extremities Exam Extremities exam: Positive for: normal capillary refill, pedal pulses present. Negative for: calf tenderness, pedal edema - Neurological Exam Neurological exam: Alert, CN II-XII Intact, Normal Gait, Oriented x3, Reflexes Normal - Psychiatric Exam Psychiatric exam: Normal Mood - Skin Skin Exam: Normal Color, Warm Results - Vital Signs Recent Vital Signs: Last Vital Signs Temp 97.9 F 04/11/18 15:25 Pulse 87 04/11/18 15:25 Resp 20 04/11/18 15:25 BP 117/77 04/11/18 15:25 Pulse Ox 92 L 04/11/18 15:25 - Labs Result Diagrams: 04/11/18 06:55 04/11/18 06:22 Labs: Laboratory Results - last 24 hr 04/11/18 04/11/18 04/11/18 06:22 06:22 06:22 WBC 12.8 H D RBC 6.44 H Hgb 20.3 H* D Hct 59.3 H MCV 92.1 D MCH 31.5 H MCHC 34.2 RDW 14.3 Plt Count 272 D MPV 8.0 Neut % (Auto) 59.9 Lymph % (Auto) 29.1 [place] % (Auto) 10.7 H Eos % (Auto) 0.0 Baso % (Auto) 0.3 Neut # (Auto) 7.7 H Lymph # (Auto) 3.7 [place] # (Auto) 1.4 H Eos # (Auto) 0.0 Baso # (Auto) 0.0 PT 12.0 INR 1.1 APTT 33 Sodium 133 Potassium 4.1 Chloride 95 L Carbon Dioxide 17 L Anion Gap 25 H BUN 72 H Creatinine 5.6 H Est GFR ( Amer) 13 Est GFR (Non-Af Amer) 11 Random Glucose 117 H D Calcium 9.0 Total Bilirubin 1.2 AST 102 H ALT 139 H D Alkaline Phosphatase 145 H Total Protein 10.4 H Albumin 5.3 H D Globulin 5.2 H Albumin/Globulin Ratio 1.0 Lipase 338 H Urine Color Urine Clarity Urine pH Ur Specific [place] Urine Protein Urine Glucose (UA) Urine Ketones Urine Blood Urine Nitrate Urine Bilirubin Urine Urobilinogen Ur Leukocyte Esterase Urine WBC (Auto) Urine RBC (Auto) Ur Squamous Epith Cells Urine Bacteria Hyaline Casts Granular Casts (Auto) Broad Casts Ur Random Sodium 04/11/18 04/11/18 04/11/18 06:28 06:55 17:19 WBC RBC Hgb 19.2 H Hct MCV MCH MCHC RDW Plt Count MPV Neut % (Auto) Lymph % (Auto) [place] % (Auto) Eos % (Auto) Baso % (Auto) Neut # (Auto) Lymph # (Auto) [place] # (Auto) Eos # (Auto) Baso # (Auto) PT INR APTT Sodium Potassium Chloride Carbon Dioxide Anion Gap BUN Creatinine Est GFR ( Amer) Est GFR (Non-Af Amer) Random Glucose Calcium Total Bilirubin AST ALT Alkaline Phosphatase Total Protein Albumin Globulin Albumin/Globulin Ratio Lipase Urine Color [place] Urine Clarity Hazy Urine pH 5.0 Ur Specific [place] 1.019 Urine Protein 1+ H Urine Glucose (UA) Normal Urine Ketones Negative Urine Blood Negative Urine Nitrate Negative Urine Bilirubin Negative Urine Urobilinogen Normal Ur Leukocyte Esterase Neg Urine WBC (Auto) 6 H Urine RBC (Auto) 2 Ur Squamous Epith Cells 1 Urine Bacteria Rare Hyaline Casts 6-10 H Granular Casts (Auto) 10 Broad Casts 18 Ur Random Sodium 12 Assessment & Plan (1) Abdominal pain Status: Acute (2) Gastroenteritis Status: Acute (3) Acute kidney failure Status: Acute (4) HIV positive Status: Acute (5) Transaminitis Status: Acute - Assessment and Plan (Free Text) Plan: PANCULTURES. UA/URINE CULTURES DIARRHEA WORKUP ORDERED BY GI. STOOLS FOR ESCHERICHIA COLI [id number], STEC. STOOLS FOR CRYPTOSPORIDIOSIS,MICROSPORIDIOSIS PSA. HEPATITIS SCREEN, HEP. C AB. LIPASE IN AM HIV-I RNA PCR QUANTITATIVE LEVELS. T -LYMPHOCYTE SUBSET STUDIES .CD4/CD8 RATIO. DC IV CIPRO. START IV ZOSYN 2.25MG IVPB Q8HRLY 04/11/18 DECREASE IV FLAGYL 500MG IVPB [id number] 04/11/18. CONTINUE HAART RX DISCUSSED WITH PHARMACY. EPIVIR 50MG PO OD. ABACAVIR 300MG PO BID. TIVICAY 50MG PO BID . F/U CULTURES AND ADJUST MEDS NEEDED GI/RENAL ON BOARD.
--- NOTE | 2018-04-11 21:00 | CP.PCM.HP ---
Present on Admission - Present on Admission Any Indicators Present on Admission: No Past Patient History - Infectious Disease Hx of Infectious Diseases: None - Past Medical History & Family History Past Medical History?: Yes - Past Social History Smoking Status: Never Smoked - CARDIAC Hx Cardiac Disorders: No - PULMONARY Hx Respiratory Disorders: Yes Hx Pneumonia: Yes - NEUROLOGICAL Hx Neurological Disorder: No - HEENT Hx HEENT Problems: No - RENAL Hx Chronic Kidney Disease: No - ENDOCRINE/METABOLIC Hx Endocrine Disorders: No - HEMATOLOGICAL/ONCOLOGICAL Hx Blood Disorders: Yes Hx Human Immunodeficiency Virus (HIV): Yes (Recently diagnosed in 2016) - INTEGUMENTARY Hx Dermatological Problems: No - MUSCULOSKELETAL/RHEUMATOLOGICAL Hx Musculoskeletal Disorders: Yes Hx Falls: No Other/Comment: restless leg syndrome - GASTROINTESTINAL Hx Gastrointestinal Disorders: No - GENITOURINARY/GYNECOLOGICAL Hx Genitourinary Disorders: No - PSYCHIATRIC Hx Substance Use: No - SURGICAL HISTORY Hx Surgeries: No - ANESTHESIA Hx Anesthesia: No Meds Allergies/Adverse Reactions: Allergies Allergy/AdvReac Type Severity Reaction Status Date / Time No Known Allergies Allergy Verified 07/07/16 10:15 Results - Vital Signs Recent Vital Signs: Last Vital Signs Temp 97.9 F 04/11/18 15:25 Pulse 87 04/11/18 15:25 Resp 20 04/11/18 15:25 BP 117/77 04/11/18 15:25 Pulse Ox 92 L 04/11/18 15:25 - Labs Result Diagrams: 04/11/18 06:55 04/11/18 06:22 Labs: Laboratory Results - last 24 hr 04/11/18 04/11/18 04/11/18 06:22 06:22 06:22 WBC 12.8 H D RBC 6.44 H Hgb 20.3 H* D Hct 59.3 H MCV 92.1 D MCH 31.5 H MCHC 34.2 RDW 14.3 Plt Count 272 D MPV 8.0 Neut % (Auto) 59.9 Lymph % (Auto) 29.1 [place] % (Auto) 10.7 H Eos % (Auto) 0.0 Baso % (Auto) 0.3 Neut # (Auto) 7.7 H Lymph # (Auto) 3.7 Hard[place] # (Auto) 1.4 H Eos # (Auto) 0.0 Baso # (Auto) 0.0 PT 12.0 INR 1.1 APTT 33 Sodium 133 Potassium 4.1 Chloride 95 L Carbon Dioxide 17 L Anion Gap 25 H BUN 72 H Creatinine 5.6 H Est GFR ( Amer) 13 Est GFR (Non-Af Amer) 11 Random Glucose 117 H D Calcium 9.0 Total Bilirubin 1.2 AST 102 H ALT 139 H D Alkaline Phosphatase 145 H Total Protein 10.4 H Albumin 5.3 H D Globulin 5.2 H Albumin/Globulin Ratio 1.0 Lipase 338 H Urine Color Urine Clarity Urine pH Ur Specific [place] Urine Protein Urine Glucose (UA) Urine Ketones Urine Blood Urine Nitrate Urine Bilirubin Urine Urobilinogen Ur Leukocyte Esterase Urine WBC (Auto) Urine RBC (Auto) Ur Squamous Epith Cells Urine Bacteria Hyaline Casts Granular Casts (Auto) Broad Casts Ur Random Sodium Stool Leukocytes, Qual 04/11/18 04/11/18 04/11/18 06:28 06:55 17:19 WBC RBC Hgb 19.2 H Hct MCV MCH MCHC RDW Plt Count MPV Neut % (Auto) Lymph % (Auto) [place] % (Auto) Eos % (Auto) Baso % (Auto) Neut # (Auto) Lymph # (Auto) [place] # (Auto) Eos # (Auto) Baso # (Auto) PT INR APTT Sodium Potassium Chloride Carbon Dioxide Anion Gap BUN Creatinine Est GFR ( Amer) Est GFR (Non-Af Amer) Random Glucose Calcium Total Bilirubin AST ALT Alkaline Phosphatase Total Protein Albumin Globulin Albumin/Globulin Ratio Lipase Urine Color [place] Urine Clarity Hazy Urine pH 5.0 Ur Specific [place] 1.019 Urine Protein 1+ H Urine Glucose (UA) Normal Urine Ketones Negative Urine Blood Negative Urine Nitrate Negative Urine Bilirubin Negative Urine Urobilinogen Normal Ur Leukocyte Esterase Neg Urine WBC (Auto) 6 H Urine RBC (Auto) 2 Ur Squamous Epith Cells 1 Urine Bacteria Rare Hyaline Casts 6-10 H Granular Casts (Auto) 10 Broad Casts 18 Ur Random Sodium Stool Leukocytes, Qual Negative 04/11/18 17:19 WBC RBC Hgb Hct MCV MCH MCHC RDW Plt Count MPV Neut % (Auto) Lymph % (Auto) [place] % (Auto) Eos % (Auto) Baso % (Auto) Neut # (Auto) Lymph # (Auto) [place] # (Auto) Eos # (Auto) Baso # (Auto) PT INR APTT Sodium Potassium Chloride Carbon Dioxide Anion Gap BUN Creatinine Est GFR ( Amer) Est GFR (Non-Af Amer) Random Glucose Calcium Total Bilirubin AST ALT Alkaline Phosphatase Total Protein Albumin Globulin Albumin/Globulin Ratio Lipase Urine Color Urine Clarity Urine pH Ur Specific [place] Urine Protein Urine Glucose (UA) Urine Ketones Urine Blood Urine Nitrate Urine Bilirubin Urine Urobilinogen Ur Leukocyte Esterase Urine WBC (Auto) Urine RBC (Auto) Ur Squamous Epith Cells Urine Bacteria Hyaline Casts Granular Casts (Auto) Broad Casts Ur Random Sodium 12 Stool Leukocytes, Qual
[2018-04-11] MEDS: Piperacill/Tazo 2.25gm in Dex 2.25 GM/50 ML BAG IVPB SCH (21:36)
[2018-04-11] MEDS: Rosuvastatin Calcium 2.5 mg Tab PO SCH (21:48)
[2018-04-12] MEDS: metroNIDAZOLE IV 500 mg/100 ml 500 MG/100 ML BAG IVPB SCH ×3 (00:09→22:33)
[2018-04-12] MEDS ORDERED: Ciprofloxacin 200mg/100ml D5W 100 ML IVPB SCH (01:00)
[2018-04-12] MEDS: Piperacill/Tazo 2.25gm in Dex 2.25 GM/50 ML BAG IVPB SCH ×3 (04:14→20:58)
--- NOTE | 2018-04-12 06:36 | HP ---
CHIEF COMPLAINT: Weakness, diarrhea, vomiting, transported. HISTORY OF PRESENT ILLNESS: This is a 57-year-old male well known to me with history of acquired immunodeficiency syndrome, on HAART therapy; questionable peptic ulcer disease. The patient is compliant with his diet, medication, and followup. He has history of prior hospitalization at [facility] in the past. The patient does not remember his CD4 count or viral load, although he is compliant with his medication. Four days ago, he started having lower abdominal pain, nausea, vomiting, diarrhea. Stool is loose watery. No blood. No mucus. There is no fever, although he has chills and body ache. He has generalized weakness. He has diarrhea. He has abdominal pain. Pain is radiating to the back. He denies any cough, sore throat, runny nose. The patient denies any hematuria, pyuria. He had generalized weakness. He has not been able to eat or drink at all and over the last four days, he has been steadily getting weaker, tired, and fatigued. He gets up out of the bed. He feels weak and dizzy. He has no joint pain. No hip pain. He denies any tingling, numbness, or paresthesias. He denies any sneezing, itchy eyes, or itchy nose. The patient has traveled to [facility] and came back on 02/28/2018. The patient denies any skin rash, itchy eyes, or itchy nose. PAST MEDICAL HISTORY: Acquired immunodeficiency syndrome, on HAART therapy; hypertension; hyperlipidemia. SOCIAL HISTORY: Nonsmoker. Non-EtOH user. CURRENT MEDICATIONS: 1. Tivicay. 2. Abacavir/lamivudine. 3. Pravachol. 4. Gabapentin. PHYSICAL EXAMINATION GENERAL: A middle-aged male, in no acute distress. He does not seem to be in acute distress. VITAL SIGNS: Blood pressure 143/80, pulse 90, respiratory rate 18, temperature 98.1. SKIN: Warm, good turgor, dry. No bruises. No purpura. No petechiae. HEENT: Atraumatic, normocephalic. Negative pallor. Negative jaundice. Extraocular movements are intact. NECK: Supple. No JVD. No lymph nodes. No thyromegaly. CHEST WALL: Bilateral symmetrical expansion. LUNGS: Clear. No rales. No rhonchi. CARDIOVASCULAR SYSTEM: PMI not localized. S1, S2 regular. No heave. No thrill. ABDOMEN: Soft, nontender. Bowel sounds are positive. RECTAL: No masses. No bleed. EXTREMITIES: No clubbing, cyanosis, or edema. CENTRAL NERVOUS SYSTEM: Awake, alert, oriented x3. ASSESSMENT: 1. Acute colitis, could be bacterial. Could be viral. With a history of recent travel, bacterial is likely. 2. Acquired immunodeficiency syndrome with unknown CD4 count. 3. Dehydration. 4. Acute renal failure, prerenal azotemia. Rule out acute tubular necrosis. Rule out hemolytic uremic syndrome, uremia. Hemolytic uremic syndrome is less likely. PLAN: Detailed orders are written. IV fluids. Gastrointestinal, Infectious Disease consult. Monitor the patient. Cezar Fletcher MD
[2018-04-12] MEDS ORDERED: Sodium Chloride 0.9% 1,000 ML IV SCH (08:00)
--- NOTE | 2018-04-12 08:01 | CP.PCM.CON ---
History of Present Illness - History of Present Illness History of Present Illness: 57 yo male, hiv +, no history of renal disease, presents with 4 days of n/v/diarrhea. Denies bleeding. Recent travel to [facility]. Recent use of AB for ? UTI. No change in urine production. No history of proteinuria. On retroviral medicines. History of PCP. No NSAID use. No contrast procedure or SANTY/ARB use. Review of Systems - Constitutional Constitutional: absent: Chills, Fever - EENT Eyes: absent: Change in Vision Nose/Mouth/Throat: absent: Nasal Congestion, Nasal Discharge - Cardiovascular Cardiovascular: absent: Chest Pain, Dyspnea - Gastrointestinal Gastrointestinal: Diarrhea, Vomiting. absent: Hematemesis, Hematochezia - Genitourinary Genitourinary: absent: Change in Urinary Stream, Difficulty Urinating, Dysuria, Hematuria - Neurological Neurological: absent: Abnormal Gait, Abnormal Movements - Hematologic/Lymphatic Hematologic: absent: Easy Bleeding, Easy Bruising Past Patient History - Infectious Disease Hx of Infectious Diseases: None - Past Medical History & Family History Past Medical History?: Yes - Past Social History Smoking Status: Never Smoked - CARDIAC Hx Cardiac Disorders: No - PULMONARY Hx Respiratory Disorders: Yes Hx Pneumonia: Yes - NEUROLOGICAL Hx Neurological Disorder: No - HEENT Hx HEENT Problems: No - RENAL Hx Chronic Kidney Disease: No - ENDOCRINE/METABOLIC Hx Endocrine Disorders: No - HEMATOLOGICAL/ONCOLOGICAL Hx Blood Disorders: Yes Hx Human Immunodeficiency Virus (HIV): Yes (Recently diagnosed in 2017) - INTEGUMENTARY Hx Dermatological Problems: No - MUSCULOSKELETAL/RHEUMATOLOGICAL Hx Musculoskeletal Disorders: Yes Hx Falls: No Other/Comment: restless leg syndrome - GASTROINTESTINAL Hx Gastrointestinal Disorders: No - GENITOURINARY/GYNECOLOGICAL Hx Genitourinary Disorders: No - PSYCHIATRIC Hx Substance Use: No - SURGICAL HISTORY Hx Surgeries: No - ANESTHESIA Hx Anesthesia: No Meds Allergies/Adverse Reactions: Allergies Allergy/AdvReac Type Severity Reaction Status Date / Time No Known Allergies Allergy Verified 07/07/16 10:15 - Medications Medications: Current Medications Abacavir Sulfate (Ziagen) 300 mg PO BID [facility]; Protocol Last Admin: 04/11/18 17:53 Dose: 300 mg Dolutegravir Sodium (Tivicay) 50 mg PO BID [facility]; Protocol Last Admin: 04/11/18 21:43 Dose: 50 mg Gabapentin (Neurontin) 100 mg PO TID [facility] Last Admin: 04/11/18 17:53 Dose: 100 mg Piperacillin Sod/Tazobactam Sod (Zosyn 2.25 Gm Iv Premix) 2.25 gm in 50 mls @ 100 mls/hr IVPB Q8H [facility]; Protocol Last Admin: 04/12/18 04:14 Dose: 100 mls/hr Metronidazole (Flagyl) 500 mg in 100 mls @ 100 mls/hr IVPB Q12H [facility]; Protocol Last Admin: 04/12/18 00:09 Dose: 100 mls/hr Sodium Chloride (Sodium Chloride 0.9%) 1,000 mls @ 100 mls/hr IV .Q10H [facility] Influenza Virus Vaccine (Flucelvax Quad 9974-7156 Syr) 60 mcg IM .ONCE ONE Stop: 04/13/18 10:01 Lamivudine (Epivir) 50 mg PO Q24H [facility] Last Admin: 04/11/18 18:16 Dose: Not Given Rosuvastatin Calcium (Crestor) 2.5 mg PO HS [facility] Last Admin: 04/11/18 21:48 Dose: 2.5 mg Physical Exam - Constitutional Appears: Non-toxic, No Acute Distress - Head Exam Head Exam: ATRAUMATIC - Eye Exam Eye Exam: EOMI, Normal appearance - ENT Exam ENT Exam: Mucous Membranes Moist - Neck Exam Neck exam: Positive for: Full Rom. Negative for: Lymphadenopathy - Respiratory Exam Respiratory Exam: Clear to Auscultation Bilateral. absent: Accessory Muscle Use - Cardiovascular Exam Cardiovascular Exam: REGULAR RHYTHM. absent: RRR - GI/Abdominal Exam GI & Abdominal Exam: Distended. absent: Firm, Guarding, Rebound - Extremities Exam Extremities exam: Positive for: full ROM. Negative for: pedal edema - Neurological Exam Neurological exam: Alert, Oriented x3 Results - Vital Signs Recent Vital Signs: Last Vital Signs Temp 98.3 F 04/11/18 23:05 Pulse 86 04/11/18 23:05 Resp 20 04/11/18 23:05 BP 127/78 04/11/18 23:05 Pulse Ox 97 04/11/18 23:05 - Labs Result Diagrams: 04/11/18 06:55 04/11/18 06:22 Labs: Laboratory Results - last 24 hr 04/11/18 04/11/18 04/12/18 17:19 17:19 06:32 Lipase 330 H Ur Random Sodium 12 Stool Leukocytes, Qual Negative Assessment & Plan - Assessment and Plan (Free Text) Assessment: NEVIN in setting of diarrha, vomiting, suspect pre renal for urine Na, ivf, renal us, quantitate proteinuria noted polycythemia, likely due to hemoconcentration stool cultures pending
--- NOTE | 2018-04-12 10:06 | US ---
Date of service: 04/12/2018 PROCEDURE: Ultrasound of the Kidneys HISTORY: kidney insufficiency COMPARISON: None available. TECHNIQUE: Grayscale imaging was performed. FINDINGS: RIGHT KIDNEY: Measures: 11.4 cm. Normal in size, contour and echogenicity. No stone, solid mass lesion or hydronephrosis visualized. LEFT KIDNEY: Measures: 11.1 cm. Normal in size, contour and echogenicity. No stone, solid mass lesion or hydronephrosis visualized. OTHER FINDINGS: None. IMPRESSION: Unremarkable renal sonogram.
[2018-04-12] MEDS: Sodium Chloride 0.9% 1,000 ML IV SCH ×2 (10:36→16:32)
--- NOTE | 2018-04-12 12:11 | CP.PCM.PN ---
<Gagandeep Lucero - Last Filed: 04/12/18 12:12> Subjective - Date & Time of Evaluation Date of Evaluation: 04/12/18 Time of Evaluation: 08:00 - Subjective Subjective: PGY6 GI Fellow Progress Note Patient seen and examined bedside this morning. The patient states that his diarrhea has improved in frequency, only having 3 stool in the last 24 hours. Still loose and watery. No blood noted when defecating. Appetite is improved, tolerated liquids without issue. 12 system ROS performed and negative except where stated Objective - Vital Signs/Intake and Output Vital Signs (last 24 hours): Temp Pulse Resp BP Pulse Ox 97.8 F 74 20 129/78 96 04/12/18 07:00 04/12/18 07:00 04/12/18 07:00 04/12/18 07:00 04/12/18 07:00 Intake and Output: 04/12/18 04/12/18 06:59 18:59 Intake Total 600 Balance 600 - Medications Medications: Current Medications Abacavir Sulfate (Ziagen) 300 mg PO BID [facility]; Protocol Last Admin: 04/12/18 09:20 Dose: 300 mg Dolutegravir Sodium (Tivicay) 50 mg PO BID [facility]; Protocol Last Admin: 04/12/18 09:20 Dose: 50 mg Gabapentin (Neurontin) 100 mg PO TID [facility] Last Admin: 04/12/18 09:19 Dose: 100 mg Heparin Sodium (Porcine) (Heparin) 5,000 units SC Q8 [facility] Piperacillin Sod/Tazobactam Sod (Zosyn 2.25 Gm Iv Premix) 2.25 gm in 50 mls @ 100 mls/hr IVPB Q8H [facility]; Protocol Last Admin: 04/12/18 04:14 Dose: 100 mls/hr Metronidazole (Flagyl) 500 mg in 100 mls @ 100 mls/hr IVPB Q12H [facility]; Protocol Last Admin: 04/12/18 10:35 Dose: 100 mls/hr Sodium Chloride (Sodium Chloride 0.9%) 1,000 mls @ 150 mls/hr IV .Q6H40M [facility] Last Admin: 04/12/18 10:36 Dose: 150 mls/hr Influenza Virus Vaccine (Flucelvax Quad 4956-7312 Syr) 60 mcg IM .ONCE ONE Stop: 04/13/18 10:01 Lamivudine (Epivir) 50 mg PO Q24H [facility] Last Admin: 04/11/18 18:16 Dose: Not Given Rosuvastatin Calcium (Crestor) 2.5 mg PO HS [facility] Last Admin: 04/11/18 21:48 Dose: 2.5 mg - Labs Labs: 04/11/18 06:55 04/11/18 06:22 PT 12.0 SECONDS (9.7-12.2) 04/11/18 06:22 INR 1.1 04/11/18 06:22 APTT 33 SECONDS (21-34) 04/11/18 06:22 - Constitutional Appears: Non-toxic, No Acute Distress - Eye Exam Eye Exam: EOMI, PERRL - ENT Exam ENT Exam: Mucous Membranes Moist - Respiratory Exam Respiratory Exam: Clear to Ausculation Bilateral. absent: Rales, Rhonchi, Wheezes - Cardiovascular Exam Cardiovascular Exam: RRR, +S1, +S2 - GI/Abdominal Exam GI & Abdominal Exam: Soft, Normal Bowel Sounds. absent: Distended, Firm, Guarding, Rigid, Tenderness, Organomegaly - Extremities Exam Extremities Exam: Normal Inspection. 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 -NEVIN -Hemoconcentration -HIV on HAART - last documented CD4 <50 -Abnormal LFTs - hepatocellular pattern Plan: -Awaiting stool studies - leukocytes negative - culture, O&P, giardia, crypto, isospora/cyclospora pending -CBC/CMP ordered, pending -Empiric therapy with Cipro/Flagyl continued -Advance diet as tolerated -Supportive care -Nephrology following for NEVIN, presume pre-renal causes given clinical picture/history -Surgical consultation should be considered for finding of porcelain gb on imaging <Sav Hairston - Last Filed: 04/12/18 14:43> Objective - Vital Signs/Intake and Output Vital Signs (last 24 hours): Temp Pulse Resp BP Pulse Ox 97.8 F 74 20 129/78 96 04/12/18 07:00 04/12/18 07:00 04/12/18 07:00 04/12/18 07:00 04/12/18 07:00 Intake and Output: 04/12/18 04/12/18 06:59 18:59 Intake Total 600 Balance 600 - Medications Medications: Current Medications Abacavir Sulfate (Ziagen) 300 mg PO BID [facility]; Protocol Last Admin: 04/12/18 09:20 Dose: 300 mg Dolutegravir Sodium (Tivicay) 50 mg PO BID [facility]; Protocol Last Admin: 04/12/18 09:20 Dose: 50 mg Gabapentin (Neurontin) 100 mg PO TID [facility] Last Admin: 04/12/18 13:08 Dose: 100 mg Heparin Sodium (Porcine) (Heparin) 5,000 units SC Q8 [facility] Last Admin: 04/12/18 13:07 Dose: 5,000 units Piperacillin Sod/Tazobactam Sod (Zosyn 2.25 Gm Iv Premix) 2.25 gm in 50 mls @ 100 mls/hr IVPB Q8H [facility]; Protocol Last Admin: 04/12/18 12:00 Dose: 100 mls/hr Metronidazole (Flagyl) 500 mg in 100 mls @ 100 mls/hr IVPB Q12H [facility]; Protocol Last Admin: 04/12/18 10:35 Dose: 100 mls/hr Sodium Chloride (Sodium Chloride 0.9%) 1,000 mls @ 150 mls/hr IV .Q6H40M [facility] Last Admin: 04/12/18 10:36 Dose: 150 mls/hr Influenza Virus Vaccine (Flucelvax Quad 1367-2793 Syr) 60 mcg IM .ONCE ONE Stop: 04/13/18 10:01 Lamivudine (Epivir) 50 mg PO Q24H [facility] Last Admin: 04/11/18 18:16 Dose: Not Given Rosuvastatin Calcium (Crestor) 2.5 mg PO HS [facility] Last Admin: 04/11/18 21:48 Dose: 2.5 mg - Labs Labs: 04/12/18 14:16 04/11/18 06:22 PT 12.0 SECONDS (9.7-12.2) 04/11/18 06:22 INR 1.1 04/11/18 06:22 APTT 33 SECONDS (21-34) 04/11/18 06:22 Attending/Attestation - Attestation I have personally seen and examined this patient.: Yes I have fully participated in the care of the patient.: Yes I have reviewed all pertinent clinical information, including history, physical exam and plan: Yes Notes (Text): 04/12/18 14:40 I have seen and examined patient with GI fellow. No acute events overnight, he is seen sitting at bedside and appears quite comfortable. He denies abdominal pain, nausea, vomiting, fever/chills. He had two bowel movements today, more formed in consistency. Tolerating PO diet without difficulty. HIV on HAART Abdominal pain, diarrhea - improved Acute renal insufficiency Transaminitis - Advance diet as tolerated - Continue with antibiotic therapy - Awaiting stool study results - Creatinine improved, continue to monitor - Suggest surgical consultation given presence of porcelain gallbladder on imaging - Will continue to monitor patient clinical course
--- NOTE | 2018-04-12 12:18 | CARD ---
APPROVED REPORT Date of service: 04/11/2018 EKG Measurement Heart [id number] <Conclusion> Normal sinus rhythm Minimal voltage criteria for LVH, may be normal variant Borderline ECG
[2018-04-12 14:31] LABS: BASO % 0.2 % (0.0-2.0); EOS % 0.2 % (0.0-4.0); LYMPH # 2.8 K/uL (1.0-4.3); LYMPH % 43.4 % (20.0-40.0); MEAN CELL VOLUME 93.8 fL (80.0-94.0); MEAN CORPUSCULAR HEMOGLOBIN 31.4 pg (27.0-31.0); MEAN CORPUSCULAR HGB CONC 33.5 g/dL (33.0-37.0); MEAN PLATELET VOLUME 8.2 fL (7.2-11.7); MONO # 0.7 K/uL (0.0-0.8); MONO % 10.5 % (0.0-10.0); NEUT % 45.7 % (50.0-75.0); NRBC % 0.1 % (0.0-2.0); RBC 5.12 Mil/uL (4.40-5.90); RED CELL DISTRIBUTION WIDTH 14.1 % (11.5-14.5); WHITE BLOOD COUNT 6.6 K/uL (4.8-10.8)
[2018-04-12 14:39] LABS: HEMOGLOBIN 16.1 g/dL (12.0-18.0)
[2018-04-12 14:40] LABS: ALB/GLOB RATIO 1.2 (1.0-2.1); ALBUMIN 3.7 g/dL (3.5-5.0); ALT/SGPT 64 U/L (21-72); AST/SGOT 42 U/L (17-59); BLOOD UREA NITROGEN 31 mg/dL (9-20); CALCIUM 7.7 mg/dl (8.6-10.4); GFR NON-AFRICAN AMERICAN 57
[2018-04-12] MEDS ORDERED: Potassium Chloride 20 mEq ER Tab PO ONE (15:30)
[2018-04-12] MEDS: Lactated Ringer's 1,000 ML IV SCH (18:07)
[2018-04-12] MEDS: Rosuvastatin Calcium 2.5 mg Tab PO SCH (21:00)
--- NOTE | 2018-04-12 21:19 | CP.PCM.PN ---
Subjective - Date & Time of Evaluation Date of Evaluation: 04/12/18 Time of Evaluation: 07:40 - Subjective Subjective: dictated Objective - Vital Signs/Intake and Output Vital Signs (last 24 hours): Temp Pulse Resp BP Pulse Ox 98.2 F 75 20 115/68 97 04/12/18 16:00 04/12/18 16:00 04/12/18 16:00 04/12/18 16:00 04/12/18 16:00 Intake and Output: 04/12/18 04/13/18 18:59 06:59 Intake Total 1250 Output Total 600 Balance 650 - Medications Medications: Current Medications Abacavir Sulfate (Ziagen) 300 mg PO BID [facility]; Protocol Last Admin: 04/12/18 18:07 Dose: 300 mg Dolutegravir Sodium (Tivicay) 50 mg PO BID [facility]; Protocol Last Admin: 04/12/18 18:07 Dose: 50 mg Gabapentin (Neurontin) 100 mg PO TID [facility] Last Admin: 04/12/18 18:06 Dose: 100 mg Heparin Sodium (Porcine) (Heparin) 5,000 units SC Q8 [facility] Last Admin: 04/12/18 21:01 Dose: 5,000 units Piperacillin Sod/Tazobactam Sod (Zosyn 2.25 Gm Iv Premix) 2.25 gm in 50 mls @ 100 mls/hr IVPB Q8H [facility]; Protocol Last Admin: 04/12/18 20:58 Dose: 100 mls/hr Metronidazole (Flagyl) 500 mg in 100 mls @ 100 mls/hr IVPB Q12H [facility]; Protocol Last Admin: 04/12/18 10:35 Dose: 100 mls/hr Lactated Ringer's (Lactated Ringer's) 1,000 mls @ 100 mls/hr IV .Q10H [facility] Last Admin: 04/12/18 18:07 Dose: 100 mls/hr Influenza Virus Vaccine (Flucelvax Quad 6942-5136 Syr) 60 mcg IM .ONCE ONE Stop: 04/13/18 10:01 Lamivudine (Epivir) 150 mg PO Q24H [facility] Last Admin: 04/12/18 20:57 Dose: 150 mg Rosuvastatin Calcium (Crestor) 2.5 mg PO HS [facility] Last Admin: 04/12/18 21:00 Dose: 2.5 mg - Labs Labs: 04/12/18 14:16 02/27/19 14:16 PT 12.0 SECONDS (9.7-12.2) 04/11/18 06:22 INR 1.1 04/11/18 06:22 APTT 33 SECONDS (21-34) 04/11/18 06:22
--- NOTE | 2018-04-12 21:24 | CP.PCM.PN ---
Subjective - Date & Time of Evaluation Date of Evaluation: 04/12/18 Time of Evaluation: 21:24 - Subjective Subjective: CHIEF COMPLAINTS TODAY : afebrile, Diarrhea much improved. 3-4 loose BMs. ROS. HEENT : N. Resp : No cough, wheezing ,pleuritic CP ,or hemoptysis Cardio : No anginal CP, PND, orthopnea, palpitation GI : +ve abd.pain, n/v , +VE DIARRHOEA, NO GI bleeding . HELMET HAT PUNCHER : No headache, vertigo, focal deficit. Musculoskel : No joint swelling , Derm : No rash Psych : Normal affect. Ext : No swelling ,calf pain PE. Pt. is alert awake in no distress. V.S As noted in the chart Head ,ear nose,throat and eyes : Normal. Neck : Supple with normal carotids. Lungs: Clear air entry. Heart : S1 & S2 normal with S4. No murmur. Abd : Soft non tender with normal bowel sounds. Neuro : Moves all ext. with no localized deficit. Ext : No edema with intact pulses.Non tender calves Derm : No rashes or decubitus ulcer. LABS/RADIOLOGY: REVIEWED wbc 6.6, H/H 16 .1/ 48.0 cREATININE 1.3/bun 31 URINE EOSINOPHILS NEGATIVE STOOL C. DIFFICILE NEGATIVE. BLOOD CULTURES -VE X 24HRS.. Objective - Vital Signs/Intake and Output Vital Signs (last 24 hours): Temp Pulse Resp BP Pulse Ox 98.2 F 75 20 115/68 97 04/12/18 16:00 04/12/18 16:00 04/12/18 16:00 04/12/18 16:00 04/12/18 16:00 Intake and Output: 04/12/18 04/13/18 18:59 06:59 Intake Total 1250 Output Total 600 Balance 650 - Medications Medications: Current Medications Abacavir Sulfate (Ziagen) 300 mg PO BID [facility]; Protocol Last Admin: 04/12/18 18:07 Dose: 300 mg Dolutegravir Sodium (Tivicay) 50 mg PO BID [facility]; Protocol Last Admin: 04/12/18 18:07 Dose: 50 mg Gabapentin (Neurontin) 100 mg PO TID [facility] Last Admin: 04/12/18 18:06 Dose: 100 mg Heparin Sodium (Porcine) (Heparin) 5,000 units SC Q8 [facility] Last Admin: 04/12/18 21:01 Dose: 5,000 units Piperacillin Sod/Tazobactam Sod (Zosyn 2.25 Gm Iv Premix) 2.25 gm in 50 mls @ 1 00 mls/hr IVPB Q8H [facility]; Protocol Last Admin: 04/12/18 20:58 Dose: 100 mls/hr Metronidazole (Flagyl) 500 mg in 100 mls @ 100 mls/hr IVPB Q12H [facility]; Protocol Last Admin: 04/12/18 10:35 Dose: 100 mls/hr Lactated Ringer's (Lactated Ringer's) 1,000 mls @ 100 mls/hr IV .Q10H [facility] Last Admin: 04/12/18 18:07 Dose: 100 mls/hr Influenza Virus Vaccine (Flucelvax Quad [id number] Syr) 60 mcg IM .ONCE ONE Stop: 04/13/18 10:01 Lamivudine (Epivir) 150 mg PO Q24H [facility] Last Admin: 04/12/18 20:57 Dose: 150 mg Rosuvastatin Calcium (Crestor) 2.5 mg PO HS [facility] Last Admin: 04/12/18 21:00 Dose: 2.5 mg - Labs Labs: 04/12/18 14:16 04/12/18 14:16 PT 12.0 SECONDS (9.7-12.2) 04/11/18 06:22 INR 1.1 04/11/18 06:22 APTT 33 SECONDS (21-34) 04/11/18 06:22 Assessment and Plan (1) Abdominal pain Status: Acute (2) Gastroenteritis Status: Acute (3) Acute kidney failure Status: Acute (4) HIV positive Status: Acute (5) Transaminitis Status: Acute - Assessment and Plan (Free Text) Plan: CONTINUE IV ZOSYN 2.25MG IVPB Q8HRLY 04/11/18 ON IV FLAGYL 500MG IVPB [id number] 04/11/18. CONTINUE HAART RX DISCUSSED WITH PHARMACY. IV FLUIDS PER RENAL. INCREASE EPIVIR 150MG PO OD DISCUSSED WITH PHARMACIST RENAL FUNCTIONS MUCH IMPROVED. ABACAVIR 300MG PO BID. TIVICAY 50MG PO BID . F/U CULTURES AND ADJUST MEDS NEEDED GI/RENAL ON BOARD. PATIENT FOR SURGICAL EVALUATION FOR PORCELAIN GALLBLADDER.
[2018-04-13 01:15] VITALS: PULSE 69
[2018-04-13] MEDS: Lactated Ringer's 1,000 ML IV SCH ×2 (03:00→13:13)
[2018-04-13] MEDS: Piperacill/Tazo 2.25gm in Dex 2.25 GM/50 ML BAG IVPB SCH ×2 (04:15→11:48)
--- NOTE | 2018-04-13 04:20 | PN ---
DATE: 04/12/2018 SUBJECTIVE: The patient has some lower abdominal pain, nausea, no vomiting. He is tolerating solid diet. His blood work abnormalities have been corrected. His BUN, creatinine has gone down. He has received ample hydration. His stool workup is negative. He is afebrile. PHYSICAL EXAMINATION: VITAL SIGNS: Blood pressure 115/68, pulse 75, respiratory rate 20, and temperature 98.2. LUNGS: Clear. ABDOMEN: Soft. Bowel sounds are present. RING STRIKER: Normal. ASSESSMENT: 1. Dehydration. 2. Diarrhea, most likely it is viral gastroenteritis versus colitis. 3. Acquired immune deficiency syndrome. PLAN: Continue IV fluids, antibiotics. Monitor the patient. Cezar Fletcher MD
[2018-04-13 07:24] LABS: BASO % 0.2 % (0.0-2.0); EOS % 0.6 % (0.0-4.0); HEMOGLOBIN 14.8 g/dL (12.0-18.0); LYMPH # 2.9 K/uL (1.0-4.3); LYMPH % 48.9 % (20.0-40.0); MEAN CELL VOLUME 93.4 fL (80.0-94.0); MEAN CORPUSCULAR HEMOGLOBIN 31.3 pg (27.0-31.0); MEAN CORPUSCULAR HGB CONC 33.5 g/dL (33.0-37.0); MEAN PLATELET VOLUME 8.1 fL (7.2-11.7); MONO # 0.7 K/uL (0.0-0.8); MONO % 11.9 % (0.0-10.0); NEUT # 2.3 K/uL (1.8-7.0); NEUT % 38.4 % (50.0-75.0); NRBC % 0.4 % (0.0-2.0); RBC 4.72 Mil/uL (4.40-5.90); RED CELL DISTRIBUTION WIDTH 13.7 % (11.5-14.5)
[2018-04-13 07:29] LABS: BLOOD UREA NITROGEN 20 mg/dL (9-20); CALCIUM 7.4 mg/dl (8.6-10.4); GFR NON-AFRICAN AMERICAN > 60
[2018-04-13 08:23] VITALS: BP 137/76; TEMP 98.2; O2SAT 98
--- NOTE | 2018-04-13 09:06 | CP.PCM.PN ---
<Gagandeep Lucero - Last Filed: 04/13/18 09:03> Subjective - Date & Time of Evaluation Date of Evaluation: 04/13/18 Time of Evaluation: 07:15 - Subjective Subjective: PGY6 GI Fellow Progress Note Patient seen and examined bedside this morning. The patient states that he is feeling well and has no new complaints today. Passed one loose stool overnight. Tolerating diet without issue. 12 system ROS performed and negative except where stated Objective - Vital Signs/Intake and Output Vital Signs (last 24 hours): Temp Pulse Resp BP Pulse Ox 98.2 F 69 20 137/76 98 04/13/18 07:00 04/13/18 07:00 04/13/18 07:00 04/13/18 07:00 04/13/18 07:00 Intake and Output: 04/13/18 04/13/18 06:59 18:59 Intake Total 2000 Output Total 300 Balance 1700 - Medications Medications: Current Medications Abacavir Sulfate (Ziagen) 300 mg PO BID [facility]; Protocol Last Admin: 04/12/18 18:07 Dose: 300 mg Dolutegravir Sodium (Tivicay) 50 mg PO BID [facility]; Protocol Last Admin: 04/12/18 18:07 Dose: 50 mg Gabapentin (Neurontin) 100 mg PO TID [facility] Last Admin: 04/12/18 18:06 Dose: 100 mg Heparin Sodium (Porcine) (Heparin) 5,000 units SC Q8 [facility] Last Admin: 04/13/18 06:33 Dose: 5,000 units Piperacillin Sod/Tazobactam Sod (Zosyn 2.25 Gm Iv Premix) 2.25 gm in 50 mls @ 100 mls/hr IVPB Q8H [facility]; Protocol Last Admin: 04/13/18 04:15 Dose: 100 mls/hr Metronidazole (Flagyl) 500 mg in 100 mls @ 100 mls/hr IVPB Q12H [facility]; Protocol Last Admin: 04/12/18 22:33 Dose: 100 mls/hr Lactated Ringer's (Lactated Ringer's) 1,000 mls @ 100 mls/hr IV .Q10H [facility] Last Admin: 04/13/18 03:00 Dose: Not Given Influenza Virus Vaccine (Flucelvax Quad 5913-8475 Syr) 60 mcg IM .ONCE ONE Stop: 04/13/18 10:01 Lamivudine (Epivir) 150 mg PO Q24H [facility] Last Admin: 04/12/18 20:57 Dose: 150 mg Rosuvastatin Calcium (Crestor) 2.5 mg PO HS [facility] Last Admin: 04/12/18 21:00 Dose: 2.5 mg - Labs Labs: 04/13/18 06:48 04/13/18 06:48 PT 12.0 SECONDS (9.7-12.2) 04/11/18 06:22 INR 1.1 04/11/18 06:22 APTT 33 SECONDS (21-34) 04/11/18 06:22 - Constitutional Appears: Non-toxic, No Acute Distress - Eye Exam Eye Exam: EOMI, PERRL - ENT Exam ENT Exam: Mucous Membranes Moist - Respiratory Exam Respiratory Exam: Clear to Ausculation Bilateral. absent: Rales, Rhonchi, Wheezes - Cardiovascular Exam Cardiovascular Exam: RRR, +S1, +S2 - GI/Abdominal Exam GI & Abdominal Exam: Soft, Normal Bowel Sounds. absent: Distended, Firm, Guarding, Rigid, Tenderness, Organomegaly - Extremities Exam Extremities Exam: Normal Inspection. 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 -NEVIN -Hemoconcentration -HIV on HAART - last documented CD4 <50 Plan: -All lab work dramatically improved with rehydration; pre-renal azotemia -Stool studies pending -Continued on empiric antibiotic therapy - Cipro/Flagyl -Consideration for HAART therapy as etiology of diarrhea possible -Diet as tolerated -Supportive care -Surgical consultation placed - porcelain gb on imaging <Sav Hairston - Last Filed: 04/13/18 11:47> Objective - Vital Signs/Intake and Output Vital Signs (last 24 hours): Temp Pulse Resp BP Pulse Ox 98.2 F 69 20 137/76 98 04/13/18 07:00 04/13/18 07:00 04/13/18 07:00 04/13/18 07:00 04/13/18 07:00 Intake and Output: 04/13/18 04/13/18 06:59 18:59 Intake Total 2000 Output Total 300 Balance 1700 - Medications Medications: Current Medications Abacavir Sulfate (Ziagen) 300 mg PO BID [facility]; Protocol Last Admin: 04/13/18 09:40 Dose: 300 mg Calcium Carbonate (Tums) 500 mg PO BID [facility] Dolutegravir Sodium (Tivicay) 50 mg PO BID [facility]; Protocol Last Admin: 04/13/18 09:40 Dose: 50 mg Gabapentin (Neurontin) 100 mg PO TID [facility] Last Admin: 04/13/18 09:39 Dose: 100 mg Heparin Sodium (Porcine) (Heparin) 5,000 units SC Q8 [facility] Last Admin: 04/13/18 06:33 Dose: 5,000 units Piperacillin Sod/Tazobactam Sod (Zosyn 2.25 Gm Iv Premix) 2.25 gm in 50 mls @ 100 mls/hr IVPB Q8H [facility]; Protocol Last Admin: 04/13/18 04:15 Dose: 100 mls/hr Metronidazole (Flagyl) 500 mg in 100 mls @ 100 mls/hr IVPB Q12H [facility]; Protocol Last Admin: 04/13/18 10:33 Dose: 100 mls/hr Lactated Ringer's (Lactated Ringer's) 1,000 mls @ 100 mls/hr IV .Q10H [facility] Last Admin: 04/13/18 03:00 Dose: Not Given Lamivudine (Epivir) 150 mg PO Q24H [facility] Last Admin: 04/12/18 20:57 Dose: 150 mg Rosuvastatin Calcium (Crestor) 2.5 mg PO HS [facility] Last Admin: 04/12/18 21:00 Dose: 2.5 mg - Labs Labs: 04/13/18 06:48 04/13/18 06:48 PT 12.0 SECONDS (9.7-12.2) 04/11/18 06:22 INR 1.1 04/11/18 06:22 APTT 33 SECONDS (21-34) 04/11/18 06:22 Attending/Attestation - Attestation I have personally seen and examined this patient.: Yes I have fully participated in the care of the patient.: Yes I have reviewed all pertinent clinical information, including history, physical exam and plan: Yes Notes (Text): 04/13/18 11:44 I have seen and examined patient with GI fellow. No acute events overnight, he is seen resting in bed comfortably. He had one loose bowel movement overnight but otherwise denies abdominal pain, nausea, vomiting, fever/chills. Tolerating PO diet without difficulty. Review of vitals from today are normal. HIV on HAART Diarrhea - resolved Acute renal insufficiency - resolved Porcelain gallbladder - Diet as tolerated - Follow up stool studies - Continue with antibiotic therapy to complete 7 day course - Patient would benefit from additional outpatient follow up including age appropriate screening colonoscopy. Office contact information provided to patient. No further planned GI intervention, will sign off case. Please reconsult as necessary, thank you.
--- NOTE | 2018-04-13 09:29 | CP.PCM.CON ---
History of Present Illness - History of Present Illness History of Present Illness: Consult note for Dr. Lee. HPI: 57 year old Male with PMHx of HIV admitted for dehydration, NEVIN, and acute diarrheal illness after presenting to he ED on Tuesday with 3 day history of nausea, vomiting and black diarrhea. Surgery was consulted for porcelain gall bladder noted on CT scan obtained on this admission, with similar findings to previous CT in 2017. Patient denied previous knowledge of porcelain gall bladder. He denies any RUQ abdominal pain or pain after eating greasy foods. Since admission he reports improvement in N/V/D. Denies fever, chills, chest pain, SOB, abdominal pain, nausea, vomiting, constipation and dysuria. PMHx: HIV, hypercholesterolemia PSHx: L retinal implant surgery 20 years ago Meds: See med list Allergies: NKDA Social Hx: Denies tobacco, alcohol and drugs. Works in a hotel. Family Hx: Mother-arthritis Review of Systems - Review of Systems All systems: reviewed and no additional remarkable complaints except (as per HPI) Past Patient History - Infectious Disease Hx of Infectious Diseases: None - Past Medical History & Family History Past Medical History?: Yes - Past Social History Smoking Status: Never Smoked - CARDIAC Hx Cardiac Disorders: No - PULMONARY Hx Respiratory Disorders: Yes Hx Pneumonia: Yes - NEUROLOGICAL Hx Neurological Disorder: No - HEENT Hx HEENT Problems: No - RENAL Hx Chronic Kidney Disease: No - ENDOCRINE/METABOLIC Hx Endocrine Disorders: No - HEMATOLOGICAL/ONCOLOGICAL Hx Blood Disorders: Yes Hx Human Immunodeficiency Virus (HIV): Yes (Recently diagnosed in 2017) - INTEGUMENTARY Hx Dermatological Problems: No - MUSCULOSKELETAL/RHEUMATOLOGICAL Hx Musculoskeletal Disorders: Yes Hx Falls: No Other/Comment: restless leg syndrome - GASTROINTESTINAL Hx Gastrointestinal Disorders: No - GENITOURINARY/GYNECOLOGICAL Hx Genitourinary Disorders: No - PSYCHIATRIC Hx Substance Use: No - SURGICAL HISTORY Hx Surgeries: No - ANESTHESIA Hx Anesthesia: No Meds Allergies/Adverse Reactions: Allergies Allergy/AdvReac Type Severity Reaction Status Date / Time No Known Allergies Allergy Verified 07/07/16 10:15 - Medications Medications: Current Medications Abacavir Sulfate (Ziagen) 300 mg PO BID [facility] 234 BEDS AT THE [facility]; Protocol Last Admin: 04/12/18 18:07 Dose: 300 mg Dolutegravir Sodium (Tivicay) 50 mg PO BID [facility]; Protocol Last Admin: 04/12/18 18:07 Dose: 50 mg Gabapentin (Neurontin) 100 mg PO TID [facility]S [facility]CLUDE 234 BEDS AT THE [facility] Last Admin: 04/12/18 18:06 Dose: 100 mg Heparin Sodium (Porcine) (Heparin) 5,000 units SC Q8 [facility] Last Admin: 04/13/18 06:33 Dose: 5,000 units Piperacillin Sod/Tazobactam Sod (Zosyn 2.25 Gm Iv Premix) 2.25 gm in 50 mls @ 100 mls/hr IVPB Q8H [facility]; Protocol Last Admin: 04/13/18 04:15 Dose: 100 mls/hr Metronidazole (Flagyl) 500 mg in 100 mls @ 100 mls/hr IVPB Q12H [facility]; Protocol Last Admin: 04/12/18 22:33 Dose: 100 mls/hr Lactated Ringer's (Lactated Ringer's) 1,000 mls @ 100 mls/hr IV .Q10H [facility]S [facility]CLUDE 234 BEDS AT THE [facility] Last Admin: 04/13/18 03:00 Dose: Not Given Influenza Virus Vaccine (Flucelvax Quad [id number] Syr) 60 mcg IM .ONCE ONE Stop: 04/13/18 10:01 Lamivudine (Epivir) 150 mg PO Q24H [facility]CLUDE 234 BEDS AT THE [facility] Last Admin: 04/12/18 20:57 Dose: 150 mg Rosuvastatin Calcium (Crestor) 2.5 mg PO HS [facility]S [facility]CLUDE 234 BEDS AT THE [facility] Last Admin: 04/12/18 21:00 Dose: 2.5 mg Physical Exam - Constitutional Appears: Well, Non-toxic, No Acute Distress - Head Exam Head Exam: ATRAUMATIC, NORMAL INSPECTION - Eye Exam Eye Exam: EOMI, Normal appearance - ENT Exam ENT Exam: Mucous Membranes Moist, Normal Exam - Neck Exam Neck exam: Positive for: Full Rom, Normal Inspection - Respiratory Exam Respiratory Exam: Clear to Auscultation Bilateral, NORMAL BREATHING PATTERN. absent: Rales, Rhonchi, Wheezes, Respiratory Distress - Cardiovascular Exam Cardiovascular Exam: REGULAR RHYTHM, +S1, +S2. absent: RRR - GI/Abdominal Exam GI & Abdominal Exam: Normal Bowel Sounds, Soft, Tenderness. absent: Distended, Firm, Guarding, Rebound, Rigid Additional comments: minimal left lower quadrant tenderness; negative ng's sign - Extremities Exam Extremities exam: Positive for: normal inspection, pedal pulses present. Negative for: pedal edema, tenderness - Neurological Exam Neurological exam: Alert, Oriented x3 - Psychiatric Exam Psychiatric exam: Normal Affect, Normal Mood - Skin Skin Exam: Dry, Intact, Normal Color, Warm Additional comments: Tattoo noted to R chest area Results - Vital Signs Recent Vital Signs: Last Vital Signs Temp 98.2 F 04/13/18 07:00 Pulse 69 04/13/18 07:00 Resp 20 04/13/18 07:00 BP 137/76 04/13/18 07:00 Pulse Ox 98 04/13/18 07:00 - Labs Result Diagrams: 04/13/18 06:48 04/13/18 06:48 Labs: Laboratory Results - last 24 hr 04/11/18 04/12/18 04/12/18 22:54 07:33 14:16 WBC 6.6 RBC 5.12 Hgb 16.1 D Hct 48.0 MCV 93.8 MCH 31.4 H MCHC 33.5 RDW 14.1 Plt Count 202 MPV 8.2 Neut % (Auto) 45.7 L Lymph % (Auto) 43.4 H [place] % (Auto) 10.5 H Eos % (Auto) 0.2 Baso % (Auto) 0.2 Neut # (Auto) 3.0 Lymph # (Auto) 2.8 [place] # (Auto) 0.7 Eos # (Auto) 0.0 Baso # (Auto) 0.0 Sodium Potassium Chloride Carbon Dioxide Anion Gap BUN Creatinine Est GFR ( Amer) Est GFR (Non-Af Amer) POC Glucose (mg/dL) Random Glucose Calcium Total Bilirubin AST ALT Alkaline Phosphatase Total Protein Albumin Globulin Albumin/Globulin Ratio Urine Eosinophils Negative C. difficile Ag & Toxin Negative 04/12/18 04/12/18 04/12/18 14:16 16:38 21:16 WBC RBC Hgb Hct MCV MCH MCHC RDW Plt Count MPV Neut % (Auto) Lymph % (Auto) [place] % (Auto) Eos % (Auto) Baso % (Auto) Neut # (Auto) Lymph # (Auto) [place] # (Auto) Eos # (Auto) Baso # (Auto) Sodium 135 Potassium 3.4 L Chloride 104 Carbon Dioxide 23 Anion Gap 12 BUN 31 H Creatinine 1.3 Est GFR ( Amer) > 60 Est GFR (Non-Af Amer) 57 POC Glucose (mg/dL) 90 104 Random Glucose 79 D Calcium 7.7 L Total Bilirubin 0.8 AST 42 ALT 64 Alkaline Phosphatase 99 Total Protein 6.7 Albumin 3.7 Globulin 3.1 Albumin/Globulin Ratio 1.2 Urine Eosinophils C. difficile Ag & Toxin 04/13/18 04/13/18 06:48 06:48 WBC 6.0 RBC 4.72 Hgb 14.8 Hct 44.0 MCV 93.4 MCH 31.3 H MCHC 33.5 RDW 13.7 Plt Count 196 MPV 8.1 Neut % (Auto) 38.4 L Lymph % (Auto) 48.9 H [place] % (Auto) 11.9 H Eos % (Auto) 0.6 Baso % (Auto) 0.2 Neut # (Auto) 2.3 Lymph # (Auto) 2.9 [place] # (Auto) 0.7 Eos # (Auto) 0.0 Baso # (Auto) 0.0 Sodium 135 Potassium 3.8 Chloride 108 H Carbon Dioxide 24 Anion Gap 8 L BUN 20 Creatinine 1.0 Est GFR ( Amer) > 60 Est GFR (Non-Af Amer) > 60 POC Glucose (mg/dL) Random Glucose 83 Calcium 7.4 L Total Bilirubin AST ALT Alkaline Phosphatase Total Protein Albumin Globulin Albumin/Globulin Ratio Urine Eosinophils C. difficile Ag & Toxin Assessment & Plan - Assessment and Plan (Free Text) Assessment: 57 year old Male with past medical history of HIV admitted for dehydration and acute diarrheal illness. Surgery was consulted for porcelain gall bladder noted on CT scan. Plan: Discussed surgical options with patient and informed him of increased risk of gall bladder cancer. Patient expressed understanding. Patient decided to schedule elective surgery at a later time. Follow up with Dr. Lee in the office. Discussed with Dr. Lee. Yasemin Salas, PGY1
[2018-04-13] MEDS ORDERED: Influenza Vaccine 60 mcg/0.5 mL SYR (4YR UP) IM ONE (10:00)
[2018-04-13] MEDS: metroNIDAZOLE IV 500 mg/100 ml 500 MG/100 ML BAG IVPB SCH (10:33)
--- NOTE | 2018-04-13 10:33 | CP.PCM.PN ---
Subjective - Date & Time of Evaluation Date of Evaluation: 04/13/18 Time of Evaluation: 10:31 - Subjective Subjective: feels better NEVIN has resolved Ca low [place] new complaint Objective - Vital Signs/Intake and Output Vital Signs (last 24 hours): Temp Pulse Resp BP Pulse Ox 98.2 F 69 20 137/76 98 04/13/18 07:00 04/13/18 07:00 04/13/18 07:00 04/13/18 07:00 04/13/18 07:00 Intake and Output: 04/13/18 04/13/18 06:59 18:59 Intake Total 2000 Output Total 300 Balance 1700 - Medications Medications: Current Medications Abacavir Sulfate (Ziagen) 300 mg PO BID [facility]; Protocol Last Admin: 04/13/18 09:40 Dose: 300 mg Dolutegravir Sodium (Tivicay) 50 mg PO BID [facility]; Protocol Last Admin: 04/13/18 09:40 Dose: 50 mg Gabapentin (Neurontin) 100 mg PO TID [facility] Last Admin: 04/13/18 09:39 Dose: 100 mg Heparin Sodium (Porcine) (Heparin) 5,000 units SC Q8 [facility] Last Admin: 04/13/18 06:33 Dose: 5,000 units Piperacillin Sod/Tazobactam Sod (Zosyn 2.25 Gm Iv Premix) 2.25 gm in 50 mls @ 100 mls/hr IVPB Q8H [facility]; Protocol Last Admin: 04/13/18 04:15 Dose: 100 mls/hr Metronidazole (Flagyl) 500 mg in 100 mls @ 100 mls/hr IVPB Q12H [facility]; Protocol Last Admin: 04/12/18 22:33 Dose: 100 mls/hr Lactated Ringer's (Lactated Ringer's) 1,000 mls @ 100 mls/hr IV .Q10H [facility] Last Admin: 04/13/18 03:00 Dose: Not Given Lamivudine (Epivir) 150 mg PO Q24H [facility] Last Admin: 04/12/18 20:57 Dose: 150 mg Rosuvastatin Calcium (Crestor) 2.5 mg PO HS [facility] Last Admin: 04/12/18 21:00 Dose: 2.5 mg - Labs Labs: 04/13/18 06:48 04/13/18 06:48 PT 12.0 SECONDS (9.7-12.2) 04/11/18 06:22 INR 1.1 04/11/18 06:22 APTT 33 SECONDS (21-34) 04/11/18 06:22 - Constitutional Appears: No Acute Distress, Chronically Ill - Head Exam Head Exam: ATRAUMATIC, NORMAL INSPECTION - Eye Exam Eye Exam: EOMI, Normal appearance - Neck Exam Neck Exam: Normal Inspection. absent: Tenderness - Respiratory Exam Respiratory Exam: Clear to Ausculation Bilateral, NORMAL BREATHING PATTERN - Cardiovascular Exam Cardiovascular Exam: REGULAR RHYTHM, +S1 - GI/Abdominal Exam GI & Abdominal Exam: Soft. absent: Tenderness - Extremities Exam Extremities Exam: Normal Inspection. absent: Tenderness - Neurological Exam Neurological Exam: Awake, CN II-XII Intact - Skin Skin Exam: Dry, Warm Assessment and Plan (1) Acute kidney failure Status: Acute (2) Gastroenteritis Status: Acute (3) HIV positive Status: Acute - Assessment and Plan (Free Text) Plan: replace ca to see again as needed
[2018-04-13 10:44] LABS: % CD4 (T HELPER CELL) 13 Percent (30-61); % CD8 (SUPPRESSOR T CELL) 33 Percent (12-42); ABSOLUTE CD4 CELLS 360 Cells/mcL (490-1740); ABSOLUTE CD8 CELLS 928 Cells/mcL (180-1170); ABSOLUTE LYMPHOCYTES 2826 Cells/mcL (850-3900); HELPER/SUPPRESSOR RATIO 0.39 Ratio (0.86-5.00)
--- NOTE | 2018-04-13 12:37 | CP.PCM.PN ---
Subjective - Date & Time of Evaluation Date of Evaluation: 04/13/18 Time of Evaluation: 12:37 - Subjective Subjective: CHIEF COMPLAINTS TODAY : afebrile, Diarrhea much improved. denies abdominal pain. SEEN BY SURGERY. ROS. HEENT : N. Resp : No cough, wheezing ,pleuritic CP ,or hemoptysis Cardio : No anginal CP, PND, orthopnea, palpitation GI : NO abd.pain, n/v , +VE DIARRHOEA X 1 TODAY, NO GI bleeding . [employer] : No headache, vertigo, focal deficit. Musculoskel : No joint swelling , Derm : No rash Psych : Normal affect. Ext : No swelling ,calf pain PE. Pt. is alert awake in no distress. V.S As noted in the chart Head ,ear nose,throat and eyes : Normal. Neck : Supple with normal carotids. Lungs: Clear air entry. Heart : S1 & S2 normal with S4. No murmur. Abd : Soft non tender with normal bowel sounds. Neuro : Moves all ext. with no localized deficit. Ext : No edema with intact pulses.Non tender calves Derm : No rashes or decubitus ulcer. LABS/RADIOLOGY: REVIEWED. wbc 6.0 H/H 14.8/44.0 , PLATELETS 196 CD4 help her cells 360 . CD4 CD8 ratios 0.39. CREATININE 1.0/bun 20. URINE EOSINOPHILS NEGATIVE STOOL C. DIFFICILE NEGATIVE. URINE CULTURES +VE GNR. BLOOD CULTURES -VE X 24HRS.. 04/12/18 Renal ultrasound unremarkable Objective - Vital Signs/Intake and Output Vital Signs (last 24 hours): Temp Pulse Resp BP Pulse Ox 98.2 F 69 20 137/76 98 04/13/18 07:00 04/13/18 07:00 04/13/18 07:00 04/13/18 07:00 04/13/18 07:00 Intake and Output: 04/13/18 04/13/18 06:59 18:59 Intake Total 2000 Output Total 300 Balance 1700 - Medications Medications: Current Medications Abacavir Sulfate (Ziagen) 300 mg PO BID [facility]; Protocol Last Admin: 04/13/18 09:40 Dose: 300 mg Calcium Carbonate (Tums) 500 mg PO BID [facility] Dolutegravir Sodium (Tivicay) 50 mg PO BID [facility]; Protocol Last Admin: 04/13/18 09:40 Dose: 50 mg Gabapentin (Neurontin) 100 mg PO TID [facility] Last Admin: 04/13/18 09:39 Dose: 100 mg Heparin Sodium (Porcine) (Heparin) 5,000 units SC Q8 [facility] Last Admin: 04/13/18 06:33 Dose: 5,000 units Piperacillin Sod/Tazobactam Sod (Zosyn 2.25 Gm Iv Premix) 2.25 gm in 50 mls @ 100 mls/hr IVPB Q8H [facility]; Protocol Last Admin: 04/13/18 11:48 Dose: 100 mls/hr Metronidazole (Flagyl) 500 mg in 100 mls @ 100 mls/hr IVPB Q12H [facility]; Protocol Last Admin: 04/13/18 10:33 Dose: 100 mls/hr Lactated Ringer's (Lactated Ringer's) 1,000 mls @ 100 mls/hr IV .Q10H [facility] Last Admin: 04/13/18 03:00 Dose: Not Given Lamivudine (Epivir) 150 mg PO Q24H [facility] Last Admin: 04/12/18 20:57 Dose: 150 mg Rosuvastatin Calcium (Crestor) 2.5 mg PO HS [facility] Last Admin: 04/12/18 21:00 Dose: 2.5 mg - Labs Labs: 04/13/18 06:48 04/13/18 06:48 PT 12.0 SECONDS (9.7-12.2) 04/11/18 06:22 INR 1.1 04/11/18 06:22 APTT 33 SECONDS (21-34) 04/11/18 06:22 Assessment and Plan (1) Abdominal pain Status: Acute (2) Gastroenteritis Status: Acute (3) Acute kidney failure Status: Acute (4) HIV positive Status: Acute (5) Transaminitis Assessment & Plan: lftS NORMAL. Status: Acute (6) UTI (urinary tract infection) Status: Acute - Assessment and Plan (Free Text) Plan: CONTINUE IV ZOSYN 2.25MG IVPB Q8HRLY 04/11/18 ON IV FLAGYL 500MG IVPB [id number] 04/11/18. CONTINUE HAART RX DISCUSSED WITH PHARMACY. IV FLUIDS PER RENAL. INCREASE EPIVIR 150MG PO OD DISCUSSED WITH PHARMACIST RENAL FUNCTIONS MUCH IMPROVED. ABACAVIR 300MG PO BID. TIVICAY 50MG PO BID . F/U CULTURES AND ADJUST MEDS NEEDED GI/RENAL ON BOARD. WILL F/U SURGERY RECOMMENDATIONS.
--- NOTE | 2018-04-13 13:32 | CP.PCM.CON ---
History of Present Illness - History of Present Illness History of Present Illness: 57 year old male with a history of HIV, presenting with N/V/D, dehydration, with erythrocytosis. The patient notes to N/V and diarrhea for about 3 days. He has been unable to tolerate much PO intake and began to feel weak. He denies fevers and chills. He is unaware of blood problems in the past. Past medical history: HIV Past surgical history: Denies Family history: Denies hematologic and oncologic problems Social history: Denies tobacco, alcohol, and illicit drug use. Allergies: NKA Review of systems: All remaining review of systems including HEENT, cardiovascular, respiratory, gastrointestinal, genitourinary, musculoskeletal, dermatologic, neurologic, and psychiatric are negative unless mentioned in the HPI. Past Patient History - Infectious Disease Hx of Infectious Diseases: None - Past Medical History & Family History Past Medical History?: Yes - Past Social History Smoking Status: Never Smoked - CARDIAC Hx Cardiac Disorders: No - PULMONARY Hx Respiratory Disorders: Yes Hx Pneumonia: Yes - NEUROLOGICAL Hx Neurological Disorder: No - HEENT Hx HEENT Problems: No - RENAL Hx Chronic Kidney Disease: No - ENDOCRINE/METABOLIC Hx Endocrine Disorders: No - HEMATOLOGICAL/ONCOLOGICAL Hx Blood Disorders: Yes Hx Human Immunodeficiency Virus (HIV): Yes (Recently diagnosed in 2017) - INTEGUMENTARY Hx Dermatological Problems: No - MUSCULOSKELETAL/RHEUMATOLOGICAL Hx Musculoskeletal Disorders: Yes Hx Falls: No Other/Comment: restless leg syndrome - GASTROINTESTINAL Hx Gastrointestinal Disorders: No - GENITOURINARY/GYNECOLOGICAL Hx Genitourinary Disorders: No - PSYCHIATRIC Hx Substance Use: No - SURGICAL HISTORY Hx Surgeries: No - ANESTHESIA Hx Anesthesia: No Meds Home Medications: Home Medication List Medication Instructions Recorded Confirmed Type Gabapentin [Neurontin] 100 mg PO TID #90 cap 04/13/18 Rx Metronidazole [Flagyl] 500 mg PO Q8 #15 tablet 04/13/18 Rx Allergies/Adverse Reactions: Allergies Allergy/AdvReac Type Severity Reaction Status Date / Time No Known Allergies Allergy Verified 07/07/16 10:15 - Medications Medications: Current Medications Abacavir Sulfate (Ziagen) 300 mg PO BID [facility]; Protocol Last Admin: 04/13/18 09:40 Dose: 300 mg Calcium Carbonate (Tums) 500 mg PO BID [facility] Dolutegravir Sodium (Tivicay) 50 mg PO BID [facility]; Protocol Last Admin: 04/13/18 09:40 Dose: 50 mg Gabapentin (Neurontin) 100 mg PO TID [facility] Last Admin: 04/13/18 13:17 Dose: 100 mg Heparin Sodium (Porcine) (Heparin) 5,000 units SC Q8 [facility] Last Admin: 04/13/18 13:12 Dose: 5,000 units Piperacillin Sod/Tazobactam Sod (Zosyn 2.25 Gm Iv Premix) 2.25 gm in 50 mls @ 100 mls/hr IVPB Q8H [facility]; Protocol Last Admin: 04/13/18 11:48 Dose: 100 mls/hr Metronidazole (Flagyl) 500 mg in 100 mls @ 100 mls/hr IVPB Q12H [facility]; Protocol Last Admin: 04/13/18 10:33 Dose: 100 mls/hr Lactated Ringer's (Lactated Ringer's) 1,000 mls @ 100 mls/hr IV .Q10H [facility] Last Admin: 04/13/18 13:13 Dose: Not Given Lamivudine (Epivir) 150 mg PO Q24H [facility] Last Admin: 04/12/18 20:57 Dose: 150 mg Rosuvastatin Calcium (Crestor) 2.5 mg PO HS [facility] Last Admin: 04/12/18 21:00 Dose: 2.5 mg Physical Exam - Head Exam Head Exam: ATRAUMATIC - Eye Exam Eye Exam: Normal appearance - ENT Exam ENT Exam: Mucous Membranes Dry - Respiratory Exam Respiratory Exam: NORMAL BREATHING PATTERN - Cardiovascular Exam Cardiovascular Exam: +S1, +S2 - GI/Abdominal Exam GI & Abdominal Exam: Normal Bowel Sounds - Extremities Exam Extremities exam: Positive for: normal inspection - Neurological Exam Neurological exam: Oriented x3 - Psychiatric Exam Psychiatric exam: Normal Affect, Normal Mood - Skin Skin Exam: Warm Results - Vital Signs Recent Vital Signs: Last Vital Signs Temp 98.2 F 04/13/18 07:00 Pulse 69 04/13/18 07:00 Resp 20 04/13/18 07:00 BP 137/76 04/13/18 07:00 Pulse Ox 98 04/13/18 07:00 - Labs Result Diagrams: 04/13/18 06:48 04/13/18 06:48 Labs: Laboratory Results - last 24 hr 04/11/18 04/12/18 04/12/18 22:54 06:32 14:16 WBC 6.6 RBC 5.12 Hgb 16.1 D Hct 48.0 MCV 93.8 MCH 31.4 H MCHC 33.5 RDW 14.1 Plt Count 202 MPV 8.2 Neut % (Auto) 45.7 L Lymph % (Auto) 43.4 H Maries % (Auto) 10.5 H Eos % (Auto) 0.2 Baso % (Auto) 0.2 Neut # (Auto) 3.0 Lymph # (Auto) 2.8 Maries # (Auto) 0.7 Eos # (Auto) 0.0 Baso # (Auto) 0.0 Sodium Potassium Chloride Carbon Dioxide Anion Gap BUN Creatinine Est GFR ( Amer) Est GFR (Non-Af Amer) POC Glucose (mg/dL) Random Glucose Calcium Total Bilirubin AST ALT Alkaline Phosphatase Total Protein Albumin Globulin Albumin/Globulin Ratio Absolute Lymphs (Flow) 2826 % CD4 Cells 13 L Absolute CD4 Count 360 L T-Help/Suppress Ratio 0.39 L % CD8 Cells 33 Absolute CD8 Count 928 C. difficile Ag & Toxin Negative 04/12/18 04/12/18 04/12/18 14:16 16:38 21:16 WBC RBC Hgb Hct MCV MCH MCHC RDW Plt Count MPV Neut % (Auto) Lymph % (Auto) Maries % (Auto) Eos % (Auto) Baso % (Auto) Neut # (Auto) Lymph # (Auto) Maries # (Auto) Eos # (Auto) Baso # (Auto) Sodium 135 Potassium 3.4 L Chloride 104 Carbon Dioxide 23 Anion Gap 12 BUN 31 H Creatinine 1.3 Est GFR ( Amer) > 60 Est GFR (Non-Af Amer) 57 POC Glucose (mg/dL) 90 104 Random Glucose 79 D Calcium 7.7 L Total Bilirubin 0.8 AST 42 ALT 64 Alkaline Phosphatase 99 Total Protein 6.7 Albumin 3.7 Globulin 3.1 Albumin/Globulin Ratio 1.2 Absolute Lymphs (Flow) % CD4 Cells Absolute CD4 Count T-Help/Suppress Ratio % CD8 Cells Absolute CD8 Count C. difficile Ag & Toxin 04/13/18 04/13/18 06:48 06:48 WBC 6.0 RBC 4.72 Hgb 14.8 Hct 44.0 MCV 93.4 MCH 31.3 H MCHC 33.5 RDW 13.7 Plt Count 196 MPV 8.1 Neut % (Auto) 38.4 L Lymph % (Auto) 48.9 H Maries % (Auto) 11.9 H Eos % (Auto) 0.6 Baso % (Auto) 0.2 Neut # (Auto) 2.3 Lymph # (Auto) 2.9 Maries # (Auto) 0.7 Eos # (Auto) 0.0 Baso # (Auto) 0.0 Sodium 135 Potassium 3.8 Chloride 108 H Carbon Dioxide 24 Anion Gap 8 L BUN 20 Creatinine 1.0 Est GFR ( Amer) > 60 Est GFR (Non-Af Amer) > 60 POC Glucose (mg/dL) Random Glucose 83 Calcium 7.4 L Total Bilirubin AST ALT Alkaline Phosphatase Total Protein Albumin Globulin Albumin/Globulin Ratio Absolute Lymphs (Flow) % CD4 Cells Absolute CD4 Count T-Help/Suppress Ratio % CD8 Cells Absolute CD8 Count C. difficile Ag & Toxin Assessment & Plan (1) Erythrocytosis Assessment and Plan: secondary to dehydration H/H normalized after IV fluids no further w/u required unless H/H rises Thank you for this interesting consult. Status: Acute
[2018-04-13 15:41] LABS: SOURCE STOOL
--- NOTE | 2018-04-13 16:56 | CP.PCM.PN ---
Subjective - Date & Time of Evaluation Date of Evaluation: 04/13/18 Time of Evaluation: 11:35 - Subjective Subjective: patient seen today states feels much better, reported 1 soft stool, denies any abdominal pain, N/V/D vss and labs reviewed- stable cr- improved - 1<1.3<5.6 Objective - Vital Signs/Intake and Output Vital Signs (last 24 hours): Temp Pulse Resp BP Pulse Ox 98.2 F 69 20 137/76 98 04/13/18 07:00 04/13/18 07:00 04/13/18 07:00 04/13/18 07:00 04/13/18 07:00 Intake and Output: 04/13/18 04/13/18 06:59 18:59 Intake Total 2000 1100 Output Total 300 Balance 1700 1100 - Labs Labs: 04/13/18 06:48 04/13/18 06:48 PT 12.0 SECONDS (9.7-12.2) 04/11/18 06:22 INR 1.1 04/11/18 06:22 APTT 33 SECONDS (21-34) 04/11/18 06:22 Assessment and Plan - Assessment and Plan (Free Text) Assessment: A/P 57yo male with PMHx significant for HIV on HAART, questionable PUD who presented to the ED with abdominal pain, nausea, vomiting and diarrhea admitted with ARF , abdominal pain. diarrhea and elevated hgb of 20.3 patient clinically improved with IV hydration and cr. back to normal and hgb back to normal- stool culture- negative blood culture- negative so far , wbc- wnl and and pt a febrile Dr. 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 seen by Dr. Cruz and Discussed surgical options with patient and informed him of increased risk of gall bladder cancer. Patient expressed understanding. Patient decided to schedule elective surgery at a later time. seen by Dr. Fletcher, cleared for discharge home today and f/u with his office in 1week , continue flagyl fo r5 more days discharge plan discussed with patient who understands and agrees with plan as per pat he has all medications at home RX e prescribed to [facility]
[2018-04-13] MEDS ORDERED: Calcium Carbonate 500 mg Chewable Antacid Tab PO SCH (18:00)
--- NOTE | 2018-04-13 21:12 | CP.PCM.DIS ---
Provider - Provider Date of Admission: 04/11/18 09:38 Attending physician: Cezar Fletcher MD Consults: 04/11/18 11:31 Nephrology Consult Routine Comment: Consulting Provider: Costa Bloom Consulting Physician: Costa Bloom Reason for Consult: acute renal failure 04/11/18 16:52 Infectious Disease Consult Routine Comment: Consulting Provider: Brandyn Jiang Consulting Physician: Brandyn Jiang Reason for Consult: + HIV 04/12/18 09:46 Hematology Oncology Consult Routine Comment: Consulting Provider: Rashard Neri Consulting Physician: Rashard Neri Reason for Consult: polycythemia 04/13/18 08:53 Physician Consult Routine Comment: Consulting Provider: Rudi Lee Jr. Consulting Physician: Rudi Lee Jr. Reason for Consult: porcelain gall bladder /calcified Time Spent in preparation of Discharge (in minutes): 30 Hospital Course - Lab Results Lab Results: Micro Results 04/11/18 17:19 Urine,Clean Catch Urine Culture - Final Gram Negative Anil 04/11/18 17:19 Stool Stool Culture - Final NO SALMONELLA, SHIGELLA OR CAMPYLOBACTER ISOLATED. 04/12/18 06:05 Blood-Venous Blood Culture - Preliminary NO GROWTH AFTER 24 HOURS 04/12/18 05:40 Blood-Venous Blood Culture - Preliminary NO GROWTH AFTER 24 HOURS Most Recent Lab Values WBC 6.0 K/uL (4.8-10.8) 04/13/18 06:48 RBC 4.72 Mil/uL (4.40-5.90) 04/13/18 06:48 Hgb 14.8 g/dL (12.0-18.0) 04/13/18 06:48 Hct 44.0 % (35.0-51.0) 04/13/18 06:48 MCV 93.4 fL (80.0-94.0) 04/13/18 06:48 MCH 31.3 pg (27.0-31.0) H 04/13/18 06:48 MCHC 33.5 g/dL (33.0-37.0) 04/13/18 06:48 RDW 13.7 % (11.5-14.5) 04/13/18 06:48 Plt Count 196 K/uL (130-400) 04/13/18 06:48 MPV 8.1 fL (7.2-11.7) 04/13/18 06:48 Neut % (Auto) 38.4 % (50.0-75.0) L 04/13/18 06:48 Lymph % (Auto) 48.9 % (20.0-40.0) H 04/13/18 06:48 [place] % (Auto) 11.9 % (0.0-10.0) H 04/13/18 06:48 Eos % (Auto) 0.6 % (0.0-4.0) 04/13/18 06:48 Baso % (Auto) 0.2 % (0.0-2.0) 04/13/18 06:48 Neut # (Auto) 2.3 K/uL (1.8-7.0) 04/13/18 06:48 Lymph # (Auto) 2.9 K/uL (1.0-4.3) 04/13/18 06:48 [place] # (Auto) 0.7 K/uL (0.0-0.8) 04/13/18 06:48 Eos # (Auto) 0.0 K/uL (0.0-0.7) 04/13/18 06:48 Baso # (Auto) 0.0 K/uL (0.0-0.2) 04/13/18 06:48 PT 12.0 SECONDS (9.7-12.2) 04/11/18 06:22 INR 1.1 04/11/18 06:22 APTT 33 SECONDS (21-34) 04/11/18 06:22 Sodium 135 mmol/L (132-148) 04/13/18 06:48 Potassium 3.8 mmol/L (3.6-5.2) 04/13/18 06:48 Chloride 108 mmol/L (98-107) H 04/13/18 06:48 Carbon Dioxide 24 mmol/L (22-30) 04/13/18 06:48 Anion Gap 8 (10-20) L 04/13/18 06:48 BUN 20 mg/dL (9-20) 04/13/18 06:48 Creatinine 1.0 mg/dL (0.8-1.5) 04/13/18 06:48 Est GFR ( Amer) > 60 04/13/18 06:48 Est GFR (Non-Af Amer) > 60 04/13/18 06:48 POC Glucose (mg/dL) 104 mg/dL (65-110) 04/12/18 21:16 Random Glucose 83 mg/dL (75-110) 04/13/18 06:48 Calcium 7.4 mg/dl (8.6-10.4) L 04/13/18 06:48 Total Bilirubin 0.8 mg/dL (0.2-1.3) 04/12/18 14:16 AST 42 U/L (17-59) 04/12/18 14:16 ALT 64 U/L (21-72) 04/12/18 14:16 Alkaline Phosphatase 99 U/L (38-126) 04/12/18 14:16 Total Protein 6.7 g/dL (6.3-8.3) 04/12/18 14:16 Albumin 3.7 g/dL (3.5-5.0) 04/12/18 14:16 Globulin 3.1 gm/dL (2.2-3.9) 04/12/18 14:16 Albumin/Globulin Ratio 1.2 (1.0-2.1) 04/12/18 14:16 Lipase 330 U/L (23-300) H 04/12/18 06:32 Free PSA 0.6 ng/mL 04/12/18 06:32 % Free PSA 12 % (calc) (>25) L 04/12/18 06:32 Total PSA 4.9 ng/mL (< or = 4.0) H 04/12/18 06:32 Urine Color Marianne (YELLOW) 04/11/18 06:28 Urine Clarity Hazy (Clear) 04/11/18 06:28 Urine pH 5.0 (5.0-8.0) 04/11/18 06:28 Ur Specific [place] 1.019 (1.003-1.030) 04/11/18 06:28 Urine Protein 1+ mg/dL (NEGATIVE) H 04/11/18 06:28 Urine Glucose (UA) Normal mg/dL (Normal) 04/11/18 06:28 Urine Ketones Negative mg/dL (NEGATIVE) 04/11/18 06:28 Urine Blood Negative (NEGATIVE) 04/11/18 06:28 Urine Nitrate Negative (NEGATIVE) 04/11/18 06:28 Urine Bilirubin Negative (NEGATIVE) 04/11/18 06:28 Urine Urobilinogen Normal mg/dL (0.2-1.0) 04/11/18 06:28 Ur Leukocyte Esterase Neg Anne-Marie/uL (Negative) 04/11/18 06:28 Urine WBC (Auto) 6 /hpf (0-5) H 04/11/18 06:28 Urine RBC (Auto) 2 /hpf (0-3) 04/11/18 06:28 Ur Squamous Epith Cells 1 /hpf (0-5) 04/11/18 06:28 Urine Bacteria Rare (<OCC) 04/11/18 06:28 Hyaline Casts 6-10 /lpf (0-2) H 04/11/18 06:28 Granular Casts (Auto) 10 /lpf (0-1) 04/11/18 06:28 Broad Casts 18 /lpf (0-1) 04/11/18 06:28 Urine Eosinophils Negative (NEGATIVE) 04/12/18 07:33 Ur Random Sodium 11 mmol/L 04/12/18 07:58 Stool Leukocytes, Qual Negative (NEGATIVE) 04/11/18 17:19 Stl Cryptosporidium Ag Not detected (Not detected) 04/11/18 22:54 Absolute Lymphs (Flow) 2826 Cells/mcL (850-3900) 04/12/18 06:32 % CD4 Cells 13 Percent (30-61) L 04/12/18 06:32 Absolute CD4 Count 360 Cells/mcL (490-1740) L 04/12/18 06:32 T-Help/Suppress Ratio 0.39 Ratio (0.86-5.00) L 04/12/18 06:32 % CD8 Cells 33 Percent (12-42) 04/12/18 06:32 Absolute CD8 Count 928 Cells/mcL (180-1170) 04/12/18 06:32 C. difficile Ag & Toxin Negative (NEGATIVE) 04/11/18 22:54 Cryptosp/Giardia Source Stool 04/11/18 22:54 Discharge Exam - Head Exam Head Exam: ATRAUMATIC, NORMAL INSPECTION Discharge Plan - Discharge Medications Prescriptions: Metronidazole [Flagyl] 500 mg PO Q8 #15 tablet Gabapentin [Neurontin] 100 mg PO TID #90 cap - Follow Up Plan Condition: FAIR Disposition: HOME/ ROUTINE Instructions: Metronidazole (Systemic), Acute Abdomen (Belly Pain), Adult (DC), Lactose-Controlled Diet, Nausea and Vomiting, Adult (DC), Gabapentin, Gastroenteritis (DC) Additional Instructions: Please follow up with Dr. Fletcher office next tuesday - needs repeat labs Please follow up with Dr. Lee office - call and make appointment ( for elective surgery ) please continue medication as per med. rec. Please tile picker medication [facility] - e prescribed Referrals: Cezar Fletcher MD [Staff Provider] - Rudi Lee Jr., MD [Staff Provider] -
--- NOTE | 2018-04-14 05:06 | DS ---
DISCHARGE DIAGNOSES: 1. Acute nonspecific colitis. 2. Dehydration. 3. Acquired immunodeficiency syndrome. 4. Porcelain gallbladder. HISTORY OF PRESENT ILLNESS AND HOSPITAL COURSE: This is a 57-year-old male, well known to me with history of AIDS, on HAART therapy; hypertension; osteoarthritis. The patient traveled recently [place] and after that, he developed abdominal pain, nausea, vomiting, and diarrhea. The patient was admitted to the floor. He was in acute renal failure. He was given IV fluids. The patient's current BUN and creatinine were down to normal. He felt better. He was given Cipro and Flagyl. He did well. PHYSICAL EXAMINATION: VITAL SIGNS: Blood pressure 137/76, pulse 69, respiratory rate 20, temperature 98.2. LUNGS: Clear. ABDOMEN: Soft, nontender. Bowel sounds are positive. PLAN: Discharge patient. Cezar Fletcher MD
== END 2018-04-13 16:09 | disposition home or self-care (01) | DRG 977 ==
LOC: C.ER 06:08 → C.9E 09:38 → C.6T 10:26
PROVIDERS: ADMIT Internal Medicine; ATTEND Internal Medicine
DX: K52.9 Noninfective gastroenteritis and colitis, unspecified (principal); B20 Human immunodeficiency virus [HIV] disease; N39.0 Urinary tract infection, site not specified; N17.9 Acute kidney failure, unspecified; E86.0 Dehydration; E78.5 Hyperlipidemia, unspecified; G25.81 Restless legs syndrome; D75.1 Secondary polycythemia; B96.20 Unspecified Escherichia coli [E. coli] as the cause of diseases classified elsewhere; I10 Essential (primary) hypertension; Z87.01 Personal history of pneumonia (recurrent)

== ENCOUNTER 2018-07-06 09:31 | Inpatient (IN) | payer OTHER ==
--- NOTE | 2018-07-06 10:08 | C.PDOC ---
History Of Present Illness Patient is a 58 year old male who presents to the ED after being sent in by for abdominal pain for the past few months. Patient saw 2 days ago and was informed he has cholecystitis and would need to come to the ED. He denies any fever, chills, CP, SOB, nausea, or vomiting. <Sarah Stockton - Last Filed: 07/11/18 00:45> <Brandyn Jiang - Last Filed: 07/06/18 11:33> History Per: Patient History/Exam Limitations: no limitations Onset/Duration Of Symptoms: Other (few months) Current Symptoms Are (Timing): Still Present Quality Of Discomfort: "Pain" Associated Symptoms: denies: Fever, Chills, Nausea, Vomiting, Chest Pain Recent travel outside of the [place]: No Additional History Per: Patient <Sarah Stockton - Last Filed: 07/11/18 00:45> Time Seen by Provider: 07/06/18 09:59 Chief Complaint (Nursing): Abdominal Pain Past Medical History Vital Signs: Last Vital Signs Temp 98.7 F 07/06/18 09:39 Pulse 79 07/06/18 09:39 Resp 18 07/06/18 09:39 BP 158/83 H 07/06/18 09:39 Pulse Ox 96 07/06/18 10:45 <Brandyn Jiang - Last Filed: 07/06/18 11:33> Reviewed: Historical Data, Nursing Documentation, Vital Signs Vital Signs: Last Vital Signs Temp 98.7 F 07/06/18 09:39 Pulse 79 07/06/18 09:39 Resp 18 07/06/18 09:39 BP 158/83 H 07/06/18 09:39 Pulse Ox 96 07/06/18 09:39 Primary Care Provider: Brandyn Jiang - Medical History PMH: HIV (Recently diagnosed in 2017), Pneumonia Denies: Chronic Kidney Disease Surgical History: No Surg Hx Family History: States: No Known Family Hx - Social History Hx Alcohol Use: No Hx Substance Use: No - Immunization History Hx Tetanus Toxoid Vaccination: No Hx Influenza Vaccination: No Hx Pneumococcal Vaccination: Yes <Sarah Stockton - Last Filed: 07/11/18 00:45> Review Of Systems Except As Marked, All Systems Reviewed And Found Negative. Constitutional: Negative for: Fever, Chills Cardiovascular: Negative for: Chest Pain Respiratory: Negative for: Shortness of Breath Gastrointestinal: Positive for: Abdominal Pain. Negative for: Nausea, Vomiting <Sarah Stockton - Last Filed: 07/11/18 00:45> Physical Exam - Physical Exam Appears: Well, Non-toxic, No Acute Distress Skin: Warm, Dry Head: Atraumatic, Normacephalic Eye(s): bilateral: Normal Inspection, PERRL, EOMI Oral Mucosa: Moist Neck: Normal ROM, Supple Chest: Symmetrical, No Deformity Cardiovascular: Rhythm Regular, No Murmur Respiratory: No Rales, No Rhonchi, No Wheezing Gastrointestinal/Abdominal: Soft, Tenderness (RUQ), No Distention, No Guarding, No Rebound Extremity: Bilateral: Atraumatic, Normal Color And Temperature Pulses: Left Dorsalis Pedis: Normal, Right Dorsalis Pedis: Normal Neurological/Psych: Oriented x3 <Sarah Stockton - Last Filed: 07/11/18 00:45> ED Course And Treatment - Laboratory Results Result Diagrams: 07/06/18 10:07 07/06/18 10:07 Lab Results: PT 11.7 SECONDS (9.7-12.2) 07/06/18 10:07 INR 1.1 07/06/18 10:07 APTT 35.3 SECONDS (21-34) H 07/06/18 10:07 Total Bilirubin 0.6 mg/dL (0.2-1.3) 07/06/18 10:07 AST 42 U/L (17-59) 07/06/18 10:07 ALT 31 U/L (21-72) 07/06/18 10:07 Alkaline Phosphatase 99 U/L (38-126) 07/06/18 10:07 Total Protein 8.4 g/dL (6.3-8.3) H 07/06/18 10:07 Albumin 4.7 g/dL (3.5-5.0) 07/06/18 10:07 Globulin 3.7 gm/dL (2.2-3.9) 07/06/18 10:07 Albumin/Globulin Ratio 1.3 (1.0-2.1) 07/06/18 10:07 <Brandyn Jiang - Last Filed: 07/06/18 11:33> - Laboratory Results Result Diagrams: 07/07/18 06:59 07/07/18 06:59 Interpretation Of ECG: Normal sinus rhythm at 78bpm, minimal voltage criteria for LVH, may be normal variant. Borderline EKG O2 Sat by Pulse Oximetry: 96 (on RA) Pulse Ox Interpretation: Normal <Sarah Stockton - Last Filed: 07/11/18 00:45> Medical Decision Making Medical Decision Making: Plan: Labs EKG CXR Case d/w Dr. Butsos, requests labs. <Sarah Stockton - Last Filed: 07/11/18 00:45> Disposition <Brandyn Jiang - Last Filed: 07/06/18 11:33> - Disposition Disposition Time: 10:08 <Sarah Stockton - Last Filed: 07/11/18 00:45> - Disposition Disposition: HOSPITALIZED Condition: STABLE - Clinical Impression Clinical Impression: Abdominal pain, Cholecystitis - Scribe Statement The provider has reviewed the documentation as recorded by the Mary Enriquez All medical record entries made by the Mary were at my direction and personally dictated by me. I have reviewed the chart and agree that the record accurately reflects my personal performance of the history, physical exam, medical decision making, and the department course for this patient. I have also personally directed, reviewed, and agree with the discharge instructions and disposition. <Sarah Stockton - Last Filed: 07/11/18 00:45>
[2018-07-06 10:14] LABS: BASO # 0.1 K/uL (0.0-0.2); BASO % 0.7 % (0.0-2.0); EOS # 0.2 K/uL (0.0-0.7); EOS % 2.5 % (0.0-4.0); HEMOGLOBIN 15.7 g/dL (12.0-18.0); LYMPH # 4.4 K/uL (1.0-4.3); LYMPH % 47.2 % (20.0-40.0); MEAN CORPUSCULAR HGB CONC 34.5 g/dL (33.0-37.0); MEAN PLATELET VOLUME 8.1 fL (7.2-11.7); MONO # 0.7 K/uL (0.0-0.8); MONO % 7.3 % (0.0-10.0); NEUT # 3.9 K/uL (1.8-7.0); NEUT % 42.3 % (50.0-75.0); NRBC % 0.1 % (0.0-2.0); RBC 4.9 Mil/uL (4.40-5.90); RED CELL DISTRIBUTION WIDTH 14.6 % (11.5-14.5); WHITE BLOOD COUNT 9.2 K/uL (4.8-10.8)
[2018-07-06 10:22] LABS: INR 1.1; PARTIAL THROMBOPLASTIN TIME 35.3 SECONDS (21-34); PROTHROMBIN TIME 11.7 SECONDS (9.7-12.2)
[2018-07-06 10:29] LABS: ALB/GLOB RATIO 1.3 (1.0-2.1); ALBUMIN 4.7 g/dL (3.5-5.0); ALT/SGPT 31 U/L (21-72); AST/SGOT 42 U/L (17-59); BLOOD UREA NITROGEN 15 mg/dL (9-20); CALCIUM 9.1 mg/dl (8.6-10.4); GFR NON-AFRICAN AMERICAN > 60
--- NOTE | 2018-07-06 11:07 | RAD ---
HISTORY: PRE OP COMPARISON: Chest x-ray performed 07/07/16 TECHNIQUE: Chest PA and lateral, 2 views FINDINGS: Examination limited by habitus and hypoinflation. LUNGS: Mild left basilar atelectasis. No focal consolidation. Please note that chest x-ray has limited sensitivity for the detection of pulmonary masses. PLEURA: No significant pleural effusion identified. No definite pneumothorax . CARDIOVASCULAR: The cardiomediastinal silhouette appears within normal limits of size. No atherosclerotic calcification present. OSSEOUS STRUCTURES: No acute osseous abnormality identified. VISUALIZED UPPER ABDOMEN: 5.7 cm ovoid calcified structure demonstrated on lateral view consistent with porcelain gallbladder demonstrated on CT of the abdomen and pelvis performed 04/11/18. OTHER FINDINGS: None. IMPRESSION: Hypoinflation. Mild left basilar atelectasis. 5.7 cm ovoid calcified structure demonstrated on lateral view consistent with porcelain gallbladder demonstrated on CT of the abdomen and pelvis performed 04/11/18.
--- NOTE | 2018-07-06 12:14 | CP.PCM.CON ---
History of Present Illness - History of Present Illness History of Present Illness: INFECTIOUS DISEASE CONSULT; HPI; 58-year-old male with history off HIV diagnosed 06/13/16 when he had a bout of pneumocystis pneumonia. Patient presently on Epzicom, ABACAVIR, and DOLUTEGRAVIR (TIVICAY ) and is well controlled viral load which is undetectable <20 COPIES/MLAND CD4 - 360 U/ML. Patient was recently hospitalized at [facility] in March with acute renal insufficiency and diarrhea which was controlled as he was dehydrated. Presently renal functions stable with recent creatinine of 1.0/and BUN of 20. Patient has been having abdominal pains since then and was diagnosed with porcelain gallbladder. Patient was referred to Dr. Bustos for cholecystectomy as as patient still symptomatic and concerned about cancer. Patient denies any fever, chills, chest pain or shortness of breath. Patient denies any nausea vomiting at present. Infectious disease consult requested by DR Bustos -surgery as patient scheduled for cholecystectomy today. PAST SURGICAL HISTORY; UNREMARKABLE PMH; HIV+VE (06/13/16 ),ORAL CANDIDIASIS, RECENT HOSPITALIZATION IN march 2018 FOR ACUTE RENAL FAILURE AND DEHYDRATION. SH:DENIES SMOKING OR DRINKING. DENIES SUBSTANCE ABUSE. FAMILY HISTORY; UNREMARKABLE. IMMUNIZATION; PATIENT GOT PNEUMOCOCCAL VACCINE. JUNE 2016. Hx Tetanus Toxoid Vaccination: No Hx Influenza Vaccination: No ALLERGY; NKA. Review of Systems - Constitutional Constitutional: absent: Chills, Fever - EENT Eyes: absent: Change in Vision Nose/Mouth/Throat: absent: Mouth Lesions - Cardiovascular Cardiovascular: absent: Chest Pain, Dyspnea - Respiratory Respiratory: absent: Cough - Gastrointestinal Gastrointestinal: Abdominal Pain (right upper quadrant.). absent: Nausea, Vomiting - Genitourinary Genitourinary: absent: Dysuria, Hematuria - Neurological Neurological: absent: Dizziness, Focal Weakness, Headaches - Hematologic/Lymphatic Hematologic: As Per HPI. absent: Easy Bleeding, Easy Bruising Past Patient History - Infectious Disease Hx of Infectious Diseases: None - Past Medical History & Family History Past Medical History?: Yes - Past Social History Smoking Status: Never Smoked - CARDIAC Hx Cardiac Disorders: No - PULMONARY Hx Pneumonia: Yes - NEUROLOGICAL Hx Neurological Disorder: No - HEENT Hx HEENT Problems: No - RENAL Hx Chronic Kidney Disease: No - ENDOCRINE/METABOLIC Hx Endocrine Disorders: No - HEMATOLOGICAL/ONCOLOGICAL Hx Human Immunodeficiency Virus (HIV): Yes (Recently diagnosed in 2016) - INTEGUMENTARY Hx Dermatological Problems: No - MUSCULOSKELETAL/RHEUMATOLOGICAL Hx Falls: No - GASTROINTESTINAL Hx Gastrointestinal Disorders: No - GENITOURINARY/GYNECOLOGICAL Hx Genitourinary Disorders: No - PSYCHIATRIC Hx Substance Use: No - SURGICAL HISTORY Hx Surgeries: Yes Hx Eye Surgery: Yes - ANESTHESIA Hx Anesthesia: No Meds Allergies/Adverse Reactions: Allergies Allergy/AdvReac Type Severity Reaction Status Date / Time No Known Allergies Allergy Verified 07/06/18 09:39 Physical Exam - Constitutional Appears: No Acute Distress - Head Exam Head Exam: NORMAL INSPECTION - Eye Exam Eye Exam: EOMI, PERRL - ENT Exam ENT Exam: Normal Oropharynx - Neck Exam Neck exam: Positive for: Normal Inspection - Respiratory Exam Respiratory Exam: Clear to Auscultation Bilateral, NORMAL BREATHING PATTERN - Cardiovascular Exam Cardiovascular Exam: REGULAR RHYTHM, +S1, +S2. absent: Irregular Rhythm, Systolic Murmur - Neurological Exam Neurological exam: Alert, CN II-XII Intact, Normal Gait, Oriented x3, Reflexes Normal - Psychiatric Exam Psychiatric exam: Normal Mood - Skin Skin Exam: Normal Color, Warm Results - Vital Signs Recent Vital Signs: Last Vital Signs Temp 98.7 F 07/06/18 09:39 Pulse 79 07/06/18 09:39 Resp 18 07/06/18 09:39 BP 158/83 H 07/06/18 09:39 Pulse Ox 96 07/06/18 10:45 - Labs Result Diagrams: 07/06/18 10:07 07/06/18 10:07 Labs: Laboratory Results - last 24 hr 07/06/18 07/06/18 07/06/18 10:07 10:07 10:07 WBC 9.2 D RBC 4.90 Hgb 15.7 Hct 45.5 MCV 93.0 MCH 32.0 H MCHC 34.5 RDW 14.6 H Plt Count 265 MPV 8.1 Neut % (Auto) 42.3 L Lymph % (Auto) 47.2 H [place] % (Auto) 7.3 Eos % (Auto) 2.5 Baso % (Auto) 0.7 Neut # (Auto) 3.9 Lymph # (Auto) 4.4 H [place] # (Auto) 0.7 Eos # (Auto) 0.2 Baso # (Auto) 0.1 PT 11.7 INR 1.1 APTT 35.3 H Sodium 141 Potassium 4.2 Chloride 102 Carbon Dioxide 27 Anion Gap 15 BUN 15 Creatinine 0.9 Est GFR ( Amer) > 60 Est GFR (Non-Af Amer) > 60 Random Glucose 102 D Calcium 9.1 Total Bilirubin 0.6 AST 42 ALT 31 Alkaline Phosphatase 99 Total Protein 8.4 H Albumin 4.7 Globulin 3.7 Albumin/Globulin Ratio 1.3 Blood Type Antibody Screen 07/06/18 10:07 WBC RBC Hgb Hct MCV MCH MCHC RDW Plt Count MPV Neut % (Auto) Lymph % (Auto) [place] % (Auto) Eos % (Auto) Baso % (Auto) Neut # (Auto) Lymph # (Auto) [place] # (Auto) Eos # (Auto) Baso # (Auto) PT INR APTT Sodium Potassium Chloride Carbon Dioxide Anion Gap BUN Creatinine Est GFR ( Amer) Est GFR (Non-Af Amer) Random Glucose Calcium Total Bilirubin AST ALT Alkaline Phosphatase Total Protein Albumin Globulin Albumin/Globulin Ratio Blood Type O POSITIVE Antibody Screen Negative Assessment & Plan (1) Porcelain gallbladder Assessment and Plan: PT FOR OR TODAY PER SURGERY. NPO. HOLD PO MEDS FOR NOW. CAN START IN AM. Status: Acute (2) Abdominal pain Assessment and Plan: PT HAS ACUTE ON CH. CHOLYCYSTITIS. PT FOR LAPRASCOPIC CHOLYCYSTECTOMY TODAY SCHEDULED BY DR VALLEJO. Status: Acute (3) HIV disease Assessment and Plan: TO START ARV RX PER PT MEDS. REORDER. Status: Acute
[2018-07-06] MEDS ORDERED: Iohexol 240 (50 ml) ONE (14:07)
[2018-07-06] MEDS ORDERED: Bupivacaine 0.25% 20 ML INJ IJ ONE (14:07)
[2018-07-06] MEDS ORDERED: Lidocaine Hydrochloride 10 ML INJ ONE (14:07)
[2018-07-06] MEDS ORDERED: ceFAZolin 1 gm in NS 2 GM/200 ML BAG IVPB ONE (14:08)
[2018-07-06] MEDS ORDERED: Propofol 10 mg/ml Inj (20 ML) ONE (14:42)
[2018-07-06] MEDS ORDERED: Oxycodone/Acetaminophen 5/325 mg Tab PO PRN (15:36)
[2018-07-06] MEDS ORDERED: HYDROmorphone 0.5 mg/0.5 ml ISec IVP PRN (15:42)
[2018-07-06] MEDS: ceFAZolin 1 GM in Sodium Chloride 0.9% 100 ML IVPB SCH (17:59)
[2018-07-06] MEDS: Dextrose 5%/0.45% NS 1,000 ML IV SCH (18:00)
[2018-07-06 18:47] VITALS: RESP 20
[2018-07-07] MEDS: ceFAZolin 1 GM in Sodium Chloride 0.9% 100 ML IVPB SCH ×3 (04:49→17:13)
[2018-07-07] MEDS: Dextrose 5%/0.45% NS 1,000 ML IV SCH ×2 (04:51→17:13)
--- NOTE | 2018-07-07 06:20 | OP ---
PROCEDURE DATE: 07/06/2018 PREOPERATIVE DIAGNOSIS: Acute cholecystitis with calcified gallbladder. POSTOPERATIVE DIAGNOSIS: Acute cholecystitis with calcified gallbladder. PROCEDURE PERFORMED: Laparoscopic cholecystectomy with frozen section and repair of umbilical hernia. SURGEON: Lorenzo Bustos MD ANESTHESIA: General. ESTIMATED BLOOD LOSS: 40 mL. POSTOPERATIVE CONDITION: Stable. INDICATIONS FOR SURGERY: This is a 58-year-old male with history of chronic cholecystitis, found to have a calcified gallbladder, severe abdominal pain, admitted to the emergency room today for laparoscopic cholecystectomy. GROSS FINDINGS: The gallbladder was calcified. There was no evidence of metastatic disease, there may be possible gallbladder carcinoma. The anatomy of Calot's triangle was clearly identified prior to clipping both the cystic duct and cystic artery. DESCRIPTION OF PROCEDURE: The patient was taken to the operating room. General anesthesia was administered. A paraumbilical cutdown was performed. Small umbilical hernia was encountered. The sac was dissected free, removed, and a blunt port was inserted through the hernia defect. The abdomen was insufflated with CO2. Remaining ports were placed. The gallbladder was then carefully retracted. Despite its calcification, it had to be entered in order to be retracted. The cystic duct was carefully dissected free. Cystic duct, common duct, gallbladder junctions were clearly identified. The cystic duct was clipped and divided. The cystic artery was identified, clipped, and divided. The gallbladder was removed from the bed using the cautery. Bleeding in the bed was controlled using cautery. A complex laceration near the edge of the gallbladder and falciform ligament was then repaired laparoscopically. The wound was irrigated with saline until clear. A NAS drain was left in the gallbladder because of some ooziness, but there was no active bleeding when the procedure was terminated. The hernia defect was closed with interrupted heavy Vicryl suture. The epigastric fascia was closed with a single heavy Vicryl suture. Subcuticular closure was performed with 3-0 Monocryl. The patient tolerated the procedure well and returned to the recovery room in stable condition. Lorenzo Bustos MD
[2018-07-07 07:14] LABS: BASO % 0.3 % (0.0-2.0); EOS # 0.1 K/uL (0.0-0.7); EOS % 1.3 % (0.0-4.0); LYMPH # 2.6 K/uL (1.0-4.3); LYMPH % 29.3 % (20.0-40.0); MEAN CELL VOLUME 92.3 fL (80.0-94.0); MEAN CORPUSCULAR HGB CONC 34.7 g/dL (33.0-37.0); MEAN PLATELET VOLUME 8.3 fL (7.2-11.7); MONO # 0.6 K/uL (0.0-0.8); NEUT # 5.6 K/uL (1.8-7.0); NEUT % 62.1 % (50.0-75.0); RBC 4.39 Mil/uL (4.40-5.90); RED CELL DISTRIBUTION WIDTH 14.6 % (11.5-14.5)
[2018-07-07 07:38] LABS: BLOOD UREA NITROGEN 11 mg/dL (9-20); CALCIUM 8.3 mg/dl (8.6-10.4); GFR NON-AFRICAN AMERICAN > 60
[2018-07-07] MEDS ORDERED: Rosuvastatin Calcium 2.5 mg Tab PO SCH (10:00)
[2018-07-07] MEDS ORDERED: Abacavir/Lamivudine 600 mg-300 mg Tab PO SCH (10:00)
--- NOTE | 2018-07-07 12:33 | CP.PCM.PN ---
Subjective - Date & Time of Evaluation Date of Evaluation: 07/07/18 Time of Evaluation: 12:33 - Subjective Subjective: #POD 1 AFEBRILE C/O SOME GAS PAINS. NO NAUSEA/OR VOMITING. TOLERATING CLEAR LIQUIDS LABS REVIEWED. H/H STABLE. RENAL FUNCTION GOOD Objective - Vital Signs/Intake and Output Vital Signs (last 24 hours): Temp Pulse Resp BP Pulse Ox 98.2 F 82 20 129/67 96 07/07/18 08:00 07/07/18 08:00 07/07/18 08:00 07/07/18 08:00 07/07/18 08:00 Intake and Output: 07/07/18 07/07/18 06:59 18:59 Intake Total 2030 Output Total 10 Balance 2020 - Medications Medications: Current Medications Abacavir/Lamivudine (Epzicom) 1 tab PO DAILY [facility]; Protocol Last Admin: 07/07/18 09:21 Dose: 1 tab Docusate Sodium (Colace) 100 mg PO BID [facility] Last Admin: 07/07/18 09:22 Dose: 100 mg Dolutegravir Sodium (Tivicay) 50 mg PO BID [facility]; Protocol Last Admin: 07/07/18 09:21 Dose: 50 mg Gabapentin (Neurontin) 100 mg PO TID [facility] Last Admin: 07/07/18 09:22 Dose: 100 mg Hydromorphone HCl (Dilaudid) 0.5 mg IVP Q15M PRN PRN Reason: Pain, severe (8-10) Last Admin: 07/06/18 16:05 Dose: 0.5 mg Dextrose/Sodium Chloride (Dextrose 5%/0.45% Ns 1000 Ml) 1,000 mls @ 80 mls/hr IV .[id number] [facility] Last Admin: 07/07/18 04:51 Dose: 80 mls/hr Cefazolin Sodium 1 gm/ Sodium (Chloride) 100 mls @ 100 mls/hr IVPB Q8H [facility]; Protocol Last Admin: 07/07/18 08:06 Dose: 100 mls/hr Ketorolac Tromethamine (Toradol) 30 mg IVP Q6 PRN PRN Reason: Pain, severe (8-10) Stop: 07/11/18 15:37 Last Admin: 07/06/18 22:15 Dose: 30 mg Ondansetron HCl (Zofran Inj) 4 mg IVP Q6 PRN PRN Reason: Nausea/Vomiting Oxycodone/Acetaminophen (Percocet 5/325 Mg Tab) 2 tab PO Q4H PRN PRN Reason: Pain, moderate (4-7) Stop: 07/09/18 15:37 Pantoprazole Sodium (Protonix Inj) 40 mg IVP DAILY [facility] Last Admin: 07/07/18 09:22 Dose: 40 mg Rosuvastatin Calcium (Crestor) 2.5 mg PO DAILY [facility] Last Admin: 07/07/18 09:23 Dose: Not Given - Labs Labs: 07/07/18 06:59 07/07/18 06:59 PT 11.7 SECONDS (9.7-12.2) 07/06/18 10:07 INR 1.1 07/06/18 10:07 APTT 35.3 SECONDS (21-34) H 07/06/18 10:07 - Constitutional Appears: No Acute Distress - Head Exam Head Exam: NORMAL INSPECTION - Eye Exam Eye Exam: EOMI, PERRL - ENT Exam ENT Exam: Normal Oropharynx - Neck Exam Neck Exam: Normal Inspection - Respiratory Exam Respiratory Exam: Clear to Ausculation Bilateral, NORMAL BREATHING PATTERN - Cardiovascular Exam Cardiovascular Exam: REGULAR RHYTHM, +S1, +S2 - GI/Abdominal Exam GI & Abdominal Exam: Soft, Tenderness (MILD TENDERNESS RUQ), Hypoactive Bowel Sounds. absent: Organomegaly - Extremities Exam Extremities Exam: Normal Capillary Refill. absent: Calf Tenderness, Pedal Edema - Neurological Exam Neurological Exam: Alert, Awake, CN II-XII Intact, Normal Gait, Oriented x3, Reflexes Normal - Psychiatric Exam Psychiatric exam: Normal Mood - Skin Skin Exam: Normal Color, Warm Assessment and Plan (1) Porcelain gallbladder Assessment & Plan: POST OP # DAY 1 S/P LAPRASCOPIC CHOLYCYSTECTOMY/REPAIR UMBLICAL HERNIA. ON IV [id number] IVPB Q 8HRLY DAY1. F/U BX AND PATH REPORT. PER SURGERY. Status: Acute (2) Abdominal pain Status: Acute (3) HIV disease Assessment & Plan: PT CAN HAVE HIS ARV RX /AND PO MEDS. Status: Acute
[2018-07-07 15:47] VITALS: BP 162/90; PULSE 76; TEMP 98.6
--- NOTE | 2018-07-08 00:35 | CARD ---
APPROVED REPORT Date of service: 07/06/2018 EKG Measurement Heart [id number] <Conclusion> Normal sinus rhythm Minimal voltage criteria for LVH, may be normal variant Borderline ECG
[2018-07-11 00:45] VITALS: O2SAT 96
== END 2018-07-07 17:21 | disposition home or self-care (01) | DRG 418 ==
LOC: C.ER 09:31 → C.3T 10:09
PROVIDERS: ADMIT Surgery; ATTEND Surgery
PROC: 0WQF4ZZ Repair Abdominal Wall, Percutaneous Endoscopic Approach (ICD-10-PCS; 2018-07-06)
PROC: 0FT44ZZ Resection of Gallbladder, Percutaneous Endoscopic Approach (ICD-10-PCS; principal; 2018-07-06 18:15)
DX: K81.0 Acute cholecystitis (principal); B20 Human immunodeficiency virus [HIV] disease; K82.8 Other specified diseases of gallbladder; K42.9 Umbilical hernia without obstruction or gangrene; Z87.01 Personal history of pneumonia (recurrent)